=== PATIENT | male | born 1960 | race Caucasian/White ===

== ENCOUNTER 2017-01-04 08:53 | Outpatient (CLI) | payer BC, MEDICARE ==
[2017-01-04 10:02] LABS: Hematocrit 45.8 % (42.0-52.0); Mean Platelet Volume 8.5 fL (7.4-10.4); Red Blood Cell (RBC) Count 4.94 mill/uL (4.70-6.10); White Blood Cell (WBC) Count 5.9 thou/uL (4.8-10.8)
[2017-01-04 10:10] LABS: PTT 58.3 SEC (22.9-36.1); Prothrombin Time 38.1 SEC (12.0-14.7)
[2017-01-04 10:40] LABS: ALT (SGPT) 21 U/L (8-55); AST (SGOT) 23 U/L (5-34); Alkaline Phosphatase 86 U/L (40-150); Anion Gap 13 mmol/L (10-20); BUN (Urea Nitrogen) 15 mg/dL (8.4-25.7); Bilirubin, Total 0.6 mg/dL (0.2-1.2); Calc. Creatinine Clearance 0 mL/min (70-130); Calcium 9.3 mg/dL (7.8-10.44); Carbon Dioxide 27 mmol/L (22-29); Chloride 106 mmol/L (98-107); Estimated GFR-MDRD 71; Protein, Total 7.1 g/dL (6.0-8.3)
--- NOTE | 2017-01-04 15:28 | EKG ---
Test Reason : Blood Pressure : / mmHG Vent. Rate : 061 BPM Atrial Rate : 061 BPM P-R Int : 192 ms QRS Dur : 132 ms QT Int : 428 ms P-R-T Axes : 067 -40 046 degrees QTc Int : 430 ms Normal sinus rhythm Left axis deviation Non-specific intra-ventricular conduction block Inferior infarct (cited on or before 15-DEC-2010) Cannot rule out Anterior infarct , age undetermined Abnormal ECG When compared with ECG of 15-SEP-2016 11:13, (Unconfirmed) No significant change was found Confirmed by DR. Whitley ABDALLA (3) on 01/04/2017 3:28:35 PM Referred By: YULIA Confirmed By:DR. Whitley ABDALLA
== END 2017-01-04 08:54 | disposition home or self-care (01) ==
LOC: LABBT 08:53
PROVIDERS: ATTEND Internal Medicine Cardiovascular Disease
DX: Z01.818 Encounter for other preprocedural examination (principal); R94.39 Abnormal result of other cardiovascular function study
CPT/HCPCS: 80053; 85027; 85610; 85730; 93005; 93010

== ENCOUNTER 2017-01-08 05:54 | Observation (INO) | payer BC, MEDICARE ==
[2017-01-08 06:35] LABS: PTT 33.1 SEC (22.9-36.1); Prothrombin Time 16.5 SEC (12.0-14.7)
[2017-01-08] MEDS ORDERED: Heparin 10,000 UNITS/1 ML VIAL ONE ×3 (06:36→06:43)
[2017-01-08] MEDS ORDERED: Heparin 0 ML ONE (06:36)
[2017-01-08] MEDS ORDERED: Midazolam HCl 2 mg/2 ml Vial ONE (07:13)
[2017-01-08] MEDS ORDERED: Fentanyl 100 MCG/2 ML VIAL ONE (07:13)
[2017-01-08] MEDS ORDERED: Clopidogrel Bisulfate 300 MG TAB ONE (07:30)
[2017-01-08] MEDS ORDERED: Bivalirudin 250 MG VIAL ONE (07:30)
[2017-01-08] MEDS ORDERED: Atropine Sulfate 1 mg/10 ml Syringe ONE (07:34)
[2017-01-08] MEDS ORDERED: Morphine 10 MG/ML VIAL SLOW IVP PRN ×2 (08:20)
[2017-01-08] MEDS ORDERED: Sodium Chloride 0.9% 1,000 ML IV SCH (08:30)
[2017-01-08] MEDS ORDERED: Furosemide 20 MG TAB PO SCH ×2 (09:00→14:00)
[2017-01-08] MEDS ORDERED: Losartan 25 MG TAB PO SCH (09:00)
--- NOTE | 2017-01-08 09:42 | RAD ---
PORTABLE UPRIGHT FRONTAL CHEST RADIOGRAPH: Date: 01-08-17 Comparison: 02-25-15 History: Pre-operative patient, cardiac catheterization. FINDINGS: There is attenuation of the bronchopulmonary vasculature with increased linear interstitial density noted, stable. Midline sternotomy wires are present. Heart and mediastinal contours are unchanged. N o focal consolidation or alveolar edema. IMPRESSION: Stable appearance of the chest. POS: [facility]
[2017-01-08 14:56] VITALS: BMI 26.3
[2017-01-08] MEDS: Ezetimibe 10 MG TAB PO SCH (15:19)
[2017-01-08] MEDS: Clopidogrel Bisulfate 75 MG TAB PO SCH (15:19)
[2017-01-08] MEDS: Folic Acid 1 MG TAB PO SCH (15:19)
[2017-01-08] MEDS: Digoxin 0.125 MG TAB PO SCH (15:19)
[2017-01-08] MEDS ORDERED: Iopamidol 370 76% 100 ML VIAL ONE (15:31)
[2017-01-08] MEDS ORDERED: Iopamidol 370 76% 50 ML VIAL FS ONE (15:31)
[2017-01-08] MEDS: HYDROcodone/Acetaminophen 5/325 mg Tablet PO PRN ×2 (16:24→23:30)
[2017-01-08] MEDS ORDERED: Warfarin Sodium 5 MG TAB PO SCH (17:00)
[2017-01-08] MEDS ORDERED: FLU VACC QS2017-18 36 mo. & older 0.5 ML SYRINGE IM ONE (17:30)
[2017-01-08] MEDS: Mometasone/Formoterol 120 PUFF INHALER INH SCH (18:08)
[2017-01-08] MEDS ORDERED: Rosuvastatin 5 MG TAB PO SCH (21:00)
[2017-01-08 21:10] VITALS: TEMP 98.4
[2017-01-09 04:17] LABS: #Eosinphils 0.3 thou/uL (0.0-0.7); #Lymphocytes 1.5 thou/uL (1.20-3.40); #Monocytes 0.7 thou/uL (0.11-0.59); #Neutrophils 4.5 thou/uL (1.40-6.50); %Basophils 0.6 % (0.0-1.0); %Eosinophils 4.2 % (0.0-10.0); %Lymphocytes 21.7 % (21.0-51.0); %Monocytes 9.9 % (0.0-10.0); Hematocrit 40.9 % (42.0-52.0); Mean Platelet Volume 8.3 fL (7.4-10.4); Red Blood Cell (RBC) Count 4.39 mill/uL (4.70-6.10); White Blood Cell (WBC) Count 7.1 thou/uL (4.8-10.8)
[2017-01-09 04:43] LABS: ALT (SGPT) 16 U/L (8-55); AST (SGOT) 17 U/L (5-34); Alkaline Phosphatase 69 U/L (40-150); Anion Gap 8 mmol/L (10-20); BUN (Urea Nitrogen) 13 mg/dL (8.4-25.7); Bilirubin, Total 0.4 mg/dL (0.2-1.2); Calc. Creatinine Clearance 114 mL/min (70-130); Calcium 8.9 mg/dL (7.8-10.44); Carbon Dioxide 30 mmol/L (22-29); Chloride 107 mmol/L (98-107); Estimated GFR-MDRD 78; Globulin 2.6 g/dL (2.4-3.5); Protein, Total 5.9 g/dL (6.0-8.3)
[2017-01-09] MEDS: Mometasone/Formoterol 120 PUFF INHALER INH SCH (06:59)
[2017-01-09] MEDS ORDERED: Furosemide 40 MG TAB PO SCH (07:30)
[2017-01-09 07:57] VITALS: BP 136/89
--- NOTE | 2017-01-09 08:11 | DIS ---
DISCHARGE DIAGNOSES: 1. Bare metal stent placement in the ostial right coronary artery. 2. Dyspnea on exertion as his anginal equivalent after walking 40-50 feet. 3. Status post mechanical aortic valve replacement and ascending aortic aneurysm repair. Off-pump coronary artery bypass graft to the right coronary artery after ventricular tachycardia arrest post aortic valve replacement and was on intra-aortic balloon pump for 6 days postop. 4. Two vessel coronary artery disease (50% proximal left anterior descending and ostial right coronary artery). 5. Nonischemic cardiomyopathy with ejection fraction of 35-40%. 6. History of atrial flutter with ablation in 10/2013. 7. Hypercholesterolemia, under good control after adding 1/2 of a Zetia daily ( nausea with doses of Crestor greater than 5 mg). 8. Hypertension, well controlled. 9. Former smoker. 10. Atypical chest pain. DISCHARGE MEDICATIONS: Symbicort 2 puffs b.i.d., digoxin 125 mcg daily, Zetia 10 mg 1/2 tablet daily, folic acid 0.4 at bedtime, furosemide 40 q.a.m. and 20 q.p.m., Combivent 2 puffs q.i.d. p.r.n., Cozaar 25 mg daily, nitroglycerin p.r.n., rosuvastatin 5 mg daily, Stiolto Respimat inhaler 2 puffs daily, warfarin 5 mg daily except for one-half on and Saturday. Ecotrin 81 mg daily. He will take Plavix 75 mg daily for 1 month then discontinue this. DISCHARGE DISPOSITION: The patient will be seen in 3 months for followup. He is advised to have his INR checked in 1 week with INR to be between 2.5 and 3.5 (he states that he has tried to keep it between 3.5 and 4.5. It was recommended that he keep it between 2.5 and 3.5 with the addition of Plavix. HOSPITAL COURSE: Mr. Lozada had been noticing increasing dyspnea on exertion after walking 40-50 feet for 3-4 months. He underwent Lexiscan Cardiolite testing which revealed a fixed defect from the proximal to distal inferior wall and apical ischemia. His Coumadin was held. He underwent cardiac catheterization. This revealed normal left main, 50% proximal LAD, normal circumflex. The right coronary artery had an 80% ostial lesion with pressure dampening. No graft was seen to fill retrograde and was not searched for. He underwent stent placement with a Rebel 3.0 x 16 mm. The proximal portion of the stent was post-dilated with a 3.5, 4.0 and 4.5 mm noncompliant balloon. This was reduced from 80% to 0%. Aortic root injection was performed, which revealed no aortic insufficiency. There was good leaflet motion of the mechanical aortic valve. He was observed overnight. After he was up, he was walking long distances in the elder without any recurrence of exertional dyspnea like he had prior to stent placement. After recent addition of the Zetia 1/2 of a 10 mg daily, his cholesterol was 109, triglycerides 103, HDL 28, LDL 60. MTDD
[2017-01-09] MEDS: Digoxin 0.125 MG TAB PO SCH (08:33)
[2017-01-09] MEDS: Clopidogrel Bisulfate 75 MG TAB PO SCH (08:34)
[2017-01-09] MEDS: Ezetimibe 10 MG TAB PO SCH (08:34)
[2017-01-09] MEDS: Folic Acid 1 MG TAB PO SCH (08:34)
--- NOTE | 2017-01-10 07:30 | CCL ---
CARDIAC CATHETERIZATION REPORT: Date: 01/08/17 PROCEDURE: Selective coronary arteriography, stent placement in the ostial right coronary artery, and aortic root injection. INDICATION: Abnormal Cardiolite. DESCRIPTION OF PROCEDURE: The patient was brought to the cardiac laborer [facility] and the right groin was prepped and draped in the usual fashion. 1% lidocaine was infiltrated. Fentanyl 25 mg and Versed 1 mg were given intravenously for conscious sedation during the procedure of approximately 1 hour. A 6 [place] sheath was placed into the right femoral artery and heparin 3,000 units given. A 6 [place] Huang left-4 followed by a 6 [place] Huang right-4 was used for coronary arteriography. There was pressure dampening of the pressure waveform with engagement of the right coronary artery. Due to inaccuracies with the ACT machine, the decision was made to use Angiomax. Aspirin 324 mg and Plavix 600 mg were given PO. A 6 [place] right-4 guide catheter with side holes was inserted and a floppy Choice wire was advanced to the distal right coronary artery. Rebel 3.0 x 16 mm stent was positioned at the ostium and deployed. There continued to be narrowing in this area and sequentially this was post dilated with NC Emerge 3.5 x 15, 4.0 x 12, and 4.5 x 12 mm balloons. Final result was excellent. The guide catheter and wire were removed, and a 6 [place] angulated pigtail was inserted. Pressure was obtained and the aortic root injection was performed using 30 mL of contrast at 15 mL/sec in a YI 50 degree projection. The pigtail was removed, sheath was sutured in place, and patient was transferred to the PCU. RESULTS: CORONARY ARTERIOGRAPHY: 1. The left main was normal. 2. The LAD had a 50% proximal stenosis. 3. The circumflex was normal. 4. The right coronary artery had an 80% ostial stenosis. There was pressure dampening. No graft was seen to fill retrograde. INTERVENTION RESULTS: Initial lesion was 80%; final lesion was 0%. AORTIC ROOT INJECTION: There was no aortic insufficiency or perivalvular leak. The mechanical aortic valve had good leaflet motion. The vein graft to the RCA was not seen. IMPRESSION: 1. Two vessel coronary artery disease (LAD and RCA). 2. Successful stent placement (bare metal) in the ostial right coronary artery. 3. No aortic insufficiency. 4. Normal mechanical valve leaflet motion. 5. RCA graft occluded. MTDD
--- NOTE | 2017-01-11 15:52 | EKG ---
Test Reason : POST STENT Blood Pressure : / mmHG Vent. Rate : 058 BPM Atrial Rate : 058 BPM P-R Int : 206 ms QRS Dur : 140 ms QT Int : 444 ms P-R-T Axes : 043 -54 -04 degrees QTc Int : 435 ms Sinus bradycardia Left axis deviation Non-specific intra-ventricular conduction block Inferior infarct (cited on or before 15-DEC-2010) Cannot rule out Anterior infarct (cited on or before 05-JUN-2010) Abnormal ECG When compared with ECG of 04-JAN-2017 09:27, No significant change was found Confirmed by DR. Nino IBANEZ ([id number]) on 01/11/2017 3:52:31 PM Referred By: YULIA Confirmed By:DR. Nino IBANEZ
--- NOTE | 2017-01-11 15:56 | EKG ---
Test Reason : Blood Pressure : / mmHG Vent. Rate : 059 BPM Atrial Rate : 059 BPM P-R Int : 156 ms QRS Dur : 132 ms QT Int : 420 ms P-R-T Axes : -24 -48 037 degrees QTc Int : 415 ms Sinus bradycardia Left axis deviation Non-specific intra-ventricular conduction block Inferior infarct (cited on or before 15-DEC-2010) Cannot rule out Anterior infarct (cited on or before 05-JUN-2010) Abnormal ECG When compared with ECG of 08-JAN-2017 08:32, (Unconfirmed) No significant change was found Confirmed by DR. Nino IBANEZ ([id number]) on 01/11/2017 3:56:13 PM Referred By: YULIA Confirmed By:DR. Nino IBANEZ
== END 2017-01-09 08:48 | disposition home or self-care (01) ==
LOC: CCL 05:54 → 2SW 08:19
PROVIDERS: ADMIT Internal Medicine Cardiovascular Disease; ATTEND Internal Medicine Cardiovascular Disease
DX: I25.10 Atherosclerotic heart disease of native coronary artery without angina pectoris (principal); R06.00 Dyspnea, unspecified; I11.0 Hypertensive heart disease with heart failure; I50.9 Heart failure, unspecified; I42.8 Other cardiomyopathies; I48.92 Unspecified atrial flutter; J44.9 Chronic obstructive pulmonary disease, unspecified; Z79.899 Other long term (current) drug therapy; R07.89 Other chest pain; E78.00 Pure hypercholesterolemia, unspecified; Z95.2 Presence of prosthetic heart valve; Z95.5 Presence of coronary angioplasty implant and graft; Z87.891 Personal history of nicotine dependence
CPT/HCPCS: 36415; 71010; 80053; 80061; 85025; 85347; 85610; 85730; 90471; 90682; 90732; 92928; 93005; 93010; 93454; 93567; 96374; 99152; 99153; A4216; C1769; C1876; C1887; G0008; G0009; G0378; J0461; J0583; J1644; J2250; J2270; J3010; J7620; Q2036

== ENCOUNTER 2017-07-30 08:41 | Outpatient (CLI) | payer BC, MEDICARE ==
[2017-07-30 10:01] LABS: #Eosinphils 0.4 thou/uL (0.0-0.7); #Lymphocytes 1.3 thou/uL (1.20-3.40); #Monocytes 0.7 thou/uL (0.11-0.59); #Neutrophils 3.8 thou/uL (1.40-6.50); %Basophils 0.5 % (0.0-1.0); %Eosinophils 6.5 % (0.0-10.0); %Lymphocytes 20.3 % (21.0-51.0); %Monocytes 10.7 % (0.0-10.0); %Neutrophils 61.9 % (42.0-75.0); Mean Corpuscular HGB CONC 33.1 g/dL (32.0-36.0); Mean Corpuscular Hemoglobin 30.6 pg (27.0-31.0); Mean Corpuscular Volume 92.6 fl (80.0-94.0); Mean Platelet Volume 8.4 fL (7.4-10.4); Platelet Count 202 thou/uL (130-400); RBC Distribution Width 12.4 % (11.5-14.5); White Blood Cell (WBC) Count 6.2 thou/uL (4.8-10.8)
[2017-07-30 10:21] LABS: ALT (SGPT) 15 U/L (8-55); AST (SGOT) 19 U/L (5-34); Albumin 4.2 g/dL (3.5-5.0); Alkaline Phosphatase 88 U/L (40-150); Anion Gap 10 mmol/L (10-20); BUN (Urea Nitrogen) 15 mg/dL (8.4-25.7); Bilirubin, Total 0.8 mg/dL (0.2-1.2); Calc. Creatinine Clearance 0 mL/min (70-130); Calcium 9.1 mg/dL (7.8-10.44); Carbon Dioxide 28 mmol/L (22-29); Chloride 107 mmol/L (98-107); Estimated GFR-MDRD 62; Globulin 2.9 g/dL (2.4-3.5); Glucose 104 mg/dL (70-105); Potassium 3.8 mmol/L (3.5-5.1); Protein, Total 7.1 g/dL (6.0-8.3); Sodium 141 mmol/L (136-145)
--- NOTE | 2017-07-30 23:49 | EKG ---
Test Reason : Blood Pressure : / mmHG Vent. Rate : 065 BPM Atrial Rate : 065 BPM P-R Int : 184 ms QRS Dur : 136 ms QT Int : 434 ms P-R-T Axes : 053 -48 097 degrees QTc Int : 451 ms Sinus rhythm with occasional Premature ventricular complexes Left axis deviation Non-specific intra-ventricular conduction block Inferior infarct (cited on or before 15-DEC-2010) Cannot rule out Anterior infarct (cited on or before 05-JUN-2010) T wave abnormality, consider lateral ischemia Abnormal ECG When compared with ECG of 09-JAN-2017 06:30, Premature ventricular complexes are now Present Nonspecific T wave abnormality has replaced inverted T waves in Inferior leads Inverted T waves have replaced nonspecific T wave abnormality in Lateral leads Confirmed by DAISY RUFF, DR. Johnson ([id number]) on 07/30/2017 11:49:05 PM Referred By: RORY Confirmed By:DR. Elizabeth VILLA MD
== END 2017-07-30 08:42 | disposition home or self-care (01) ==
LOC: LABBT 08:41
PROVIDERS: ATTEND Surgery
DX: Z01.818 Encounter for other preprocedural examination (principal); R94.31 Abnormal electrocardiogram [ECG] [EKG]; K40.90 Unilateral inguinal hernia, without obstruction or gangrene, not specified as recurrent; I21.19 ST elevation (STEMI) myocardial infarction involving other coronary artery of inferior wall
CPT/HCPCS: 80053; 85025; 93005; 93010

== ENCOUNTER 2017-08-02 09:59 | Day surgery (SDC) | payer BC, MEDICARE ==
[2017-07-30 09:07] VITALS: BMI 28.1
[2017-08-02] MEDS ORDERED: CEFAZOLIN/Water 2 GM/20 ML SYRINGE ONE (11:21)
[2017-08-02 11:22] LABS: INR-International Normal Ratio 1.2; PTT 46.4 SEC (22.9-36.1); Prothrombin Time 14.9 SEC (12.0-14.7)
[2017-08-02] MEDS ORDERED: Bupivacaine/Epinephrine 0.25% 30 ML VIAL ONE (12:14)
[2017-08-02] MEDS ORDERED: Fentanyl 250 MCG/5 ML VIAL ONE (12:15)
--- NOTE | 2017-08-02 16:24 | OP ---
PREOPERATIVE DIAGNOSIS: Left inguinal hernia. SURGEON: Saturnino Lopez M.D. PROCEDURE PERFORMED: Left inguinal hernia repair with mesh. INDICATIONS: This is a 56-year-old male who was found to have a bulge in the left groin and was pain ful. FINDINGS: Left direct inguinal hernia. PROCEDURE IN DETAIL: After informed consent was obtained, the patient was taken to the operating aren m and given general mask anesthesia, placed in supine position. Left groin was prepped and draped in usual fashion. Local anesthesia infiltrated subcutaneously and deep. A transverse left inguinal in cision was performed. The subcu divided sharply. Fascia external oblique was incised in direction o f its fibers through the external ring. The spermatic cord was isolated with a Christa drain. Crema steric fibers were . There was no indirect component. He had a moderate sized direct ingui nal hernia. This was circumscribed and reduced. Reduction maintained utilizing a PHS hernia system. The posterior layer was placed in the preperitoneal space. It was sutured to the pubic tubercle me dially and tucked under the external oblique fascia laterally. Hemostasis was assured. The cord jacqui fatou anatomic and the fascia closed with a running 3-0 Vicryl suture. Now, he had a soft mass in the left scrotum consistent with a hydrocele. This did not communicate. I did not try to remove this du e to the fact that he is on anticoagulants and did not want to cause problems, anyways the external o blique fascia closed with a running 3-0 Vicryl. Elaine's closed with interrupted 3-0 Vicryl and skin closed with a running subcuticular 4-0 Rapide. Steri-Strips applied. Sterile bandage applied. The patient tolerated the procedure well and was transferred to recovery in good condition. Sponge and needle count verified correct x2.
== END 2017-08-02 15:19 | disposition home or self-care (01) ==
LOC: SDC 09:59
PROVIDERS: ATTEND Surgery
PROC: 0YU60JZ Supplement Left Inguinal Region with Synthetic Substitute, Open Approach (ICD-10-PCS; principal; 2017-08-02)
DX: K40.90 Unilateral inguinal hernia, without obstruction or gangrene, not specified as recurrent (principal); I10 Essential (primary) hypertension; E78.5 Hyperlipidemia, unspecified; I48.92 Unspecified atrial flutter; J44.9 Chronic obstructive pulmonary disease, unspecified; G89.29 Other chronic pain; M54.9 Dorsalgia, unspecified; Z87.891 Personal history of nicotine dependence; Z79.01 Long term (current) use of anticoagulants; Z79.899 Other long term (current) drug therapy; Z91.041 Radiographic dye allergy status; Z91.048 Other nonmedicinal substance allergy status; Z95.1 Presence of aortocoronary bypass graft
CPT/HCPCS: 85610; 85730; C1781; J3010

== ENCOUNTER 2018-03-29 11:37 | Observation (INO) | payer BC, MEDICARE ==
[2018-03-29 12:45] LABS: #Lymphocytes 1.5 thou/uL (1.20-3.40); #Monocytes 0.5 thou/uL (0.11-0.59); #Neutrophils 4.1 thou/uL (1.40-6.50); %Basophils 0.2 % (0.0-1.0); %Eosinophils 0.4 % (0.0-10.0); %Lymphocytes 23.8 % (21.0-51.0); %Monocytes 8.7 % (0.0-10.0); Hemoglobin 15.8 g/dL (14.0-18.0); Mean Corpuscular HGB CONC 32.9 g/dL (32.0-36.0); Mean Corpuscular Hemoglobin 29.8 pg (27.0-31.0); Mean Corpuscular Volume 90.7 fL (78.0-98.0); Mean Platelet Volume 9.2 fL (7.4-10.4); Platelet Count 191 thou/uL (130-400); White Blood Cell (WBC) Count 6.2 thou/uL (4.8-10.8)
[2018-03-29 12:55] LABS: PTT 61.1 SEC (22.9-36.1); Prothrombin Time 42.6 SEC (12.0-14.7)
[2018-03-29 12:56] LABS: D-Dimer Test 0.35 *mcg/mL (0.27-0.43)
[2018-03-29 12:58] LABS: INR-International Normal Ratio 4.5
[2018-03-29 13:07] LABS: ALT (SGPT) 39 U/L (8-55); AST (SGOT) 40 U/L (5-34); Albumin 4.3 g/dL (3.5-5.0); Alkaline Phosphatase 90 U/L (40-150); Anion Gap 14 mmol/L (10-20); BUN (Urea Nitrogen) 13 mg/dL (8.4-25.7); Calc. Creatinine Clearance 0 mL/min (70-130); Carbon Dioxide 24 mmol/L (22-29); Chloride 107 mmol/L (98-107); Estimated GFR-MDRD 70; Glucose 95 mg/dL (70-105); Potassium 4.1 mmol/L (3.5-5.1); Protein, Total 8.3 g/dL (6.0-8.3); Sodium 141 mmol/L (136-145)
--- NOTE | 2018-03-29 13:20 | RAD ---
PORTABLE CHEST: Date: 03/29/18 PROVIDED CLINICAL HISTORY: Dyspnea. FINDINGS: Comparison with 01/08/17. Cardiac and mediastinal silhouette is unchanged in appearance. Median sternotomy changes are seen. No focal consolidation, pleural fluid, or pneumothorax apparent. IMPRESSION: No evidence for an acute cardiopulmonary process. POS: [facility]
[2018-03-29 13:27] LABS: CKMB 1.7 ng/mL (0-6.6)
--- NOTE | 2018-03-29 13:37 | PDOC.FPRHP ---
- History of Present Illness Chief Complaint: SOB History of Present Illness: 57 yo M with hx of 2V CAD s/p stent x1 and known systolic CHF presents to ED for SOB and chest congestion. For past month has been experiencing SOB on exertion. Normally has no physical restrictions but has recently been limited to 20-30 feet distance without having to stop. Has emphysema that he is on home meds for, those have minimally helped. This past month he has seen his PCP, Dr. Ghosh and Dr. Perez who have both prescribed him antibiotic courses for suspected pneumonia, with no improvement of symptoms. He denies chest pain but endorses chest wheezing marv. with exertion. No increased coughing. Endorses subjective fevers and chills. Denies lower leg swelling or sputum production. Has never been on a fluid restricted diet. Of note, he had a mechanical valve replacement in 2007 and stent x1 1.5 years ago. He never followed up with Dr. Alvarez due to difficulty with scheduling. He takes all his meds as prescribed. ED Course: lasix 40 IV x1 - Allergies/Adverse Reactions Allergies Allergy/AdvReac Type Severity Reaction Status Date / Time adhesive Allergy Rash Verified 01/04/17 09:07 Iodinated Contrast- Oral and Allergy Verified 07/30/17 10:04 IV Dye - Home Medications Medication Instructions Recorded Confirmed Type Digoxin [Digox] 125 mcg PO DAILY 10/22/13 03/29/18 History Folic Acid 0.4 mg PO HS 10/22/13 03/29/18 History Ipratropium/Albuterol Sulfate 2 puff INH QID PRN 10/22/13 03/29/18 History [Combivent Respimat] Nitroglycerin [Nitrostat] 0.4 mg SL ASDIR PRN 10/22/13 03/29/18 History Budesonide-Formoterol [Symbicort 2 puff INH BID 01/04/17 03/29/18 History 160-4.5] Losartan [Cozaar] 25 mg PO DAILY 01/04/17 03/29/18 History Tiotropium Br/Olodaterol HCl 2 puff IH DAILY 01/04/17 03/29/18 History [Stiolto Respimat Inhal [place]] Ezetimibe 5 mg PO DAILY 01/08/17 03/29/18 History Furosemide 40 mg PO DAILY 01/08/17 03/29/18 History Rosuvastatin [Crestor] 10 mg PO HS 01/08/17 03/29/18 History Warfarin Sodium [Coumadin] 2.5 mg PO ASDIR 01/08/17 03/29/18 History Warfarin Sodium [Coumadin] 5 mg PO ASDIR 01/08/17 03/29/18 History Aspirin [Aspirin Chewable Tablet] 81 mg PO DAILY tab 01/09/17 03/29/18 Rx Furosemide [Lasix] 20 mg PO HS 01/09/17 03/29/18 History Docusate [Colace] 100 mg PO BID 08/02/17 03/29/18 History HYDROcodone Bit/APAP 7.5/325 1 - 2 tab PO Q4HR PRN 08/02/17 03/29/18 History [[place] 7.5/325] - History PMHx: COPD, CHF, 2V CAD s/p stent x1, HTN, HLD PSHx: L inguinal hernia repair, mechanical aortic valve replacement FHx: HTN, DM2 Social: former 30pack year hx, social drinker, denies drugs - Review of Systems General: denies: fever/chills, weight/appetite/sleep changes Eyes: denies: eye pain, vision changes ENT: denies: nasal congestion, rhinorrhea Respiratory: denies: cough, congestion, shortness of breath Cardiovascular: reports: edema, orthopnea. denies: chest pain, palpitation Gastrointestinal: reports: nausea, constipation, abdominal pain, GI bleeding. denies: vomiting, diarrhea Genitourinary: denies: incontinence, dysuria Skin: denies: rashes, lesions Musculoskeletal: denies: pain, tenderness, stiffness, swelling, arthritis/ arthralgias Neurological: denies: numbness, syncope Psychological: denies: anxiety, depression - Vital signs BP: [140/95] HR: [85] RR: [24] Tmax: [98.1] Pox: [94]% on [RA] Wt: [28kg] - Physical Exam Constitutional: awake, alert and oriented, well developed -Constitutional: mild distress from LLQ abd pain HEENT: normocephalic and atraumatic, PERRLA, EOMI, no scleral icterus Neck: supple, FROM, no JVD Heart: no edema Lungs: no respiratory distress, no retractions -Lungs: fine bibasilar crackles Abdomen: soft, bowel sounds present, no masses/distention -Abdomen: tender to deep palpation in LLQ Musculoskeletal: ROM grossly normal Neurological: no focal deficit, CN II-XII intact, normal sensation Skin: no rash/lesions -Skin: dec skin turgor Heme/Lymphatic: no unusual bruising or bleeding, no purpura Psychiatric: normal mood and affect, good judgment and insight, intact recent and remote memory FMR H&P: Results - Labs Result Diagrams: 03/29/18 11:52 03/29/18 11:52 Lab results: WBC 6.2 thou/uL (4.8-10.8) 03/29/18 11:52 Hgb 15.8 g/dL (14.0-18.0) 03/29/18 11:52 Hct 48.1 % (42.0-52.0) 03/29/18 11:52 MCV 90.7 fL (78.0-98.0) 03/29/18 11:52 Plt Count 191 thou/uL (130-400) 03/29/18 11:52 Neutrophils % 67.0 % (42.0-75.0) 03/29/18 11:52 Sodium 141 mmol/L (136-145) 03/29/18 11:52 Potassium 4.1 mmol/L (3.5-5.1) 03/29/18 11:52 Chloride 107 mmol/L (98-107) 03/29/18 11:52 Carbon Dioxide 24 mmol/L (22-29) 03/29/18 11:52 BUN 13 mg/dL (8.4-25.7) 03/29/18 11:52 Creatinine 1.08 mg/dL (0.7-1.3) 03/29/18 11:52 Glucose 95 mg/dL (70-105) 03/29/18 11:52 Lactic Acid 1.5 mmol/L (0.5-2.2) 03/29/18 11:52 Calcium 10.0 mg/dL (7.8-10.44) 03/29/18 11:52 Total Bilirubin 1.0 mg/dL (0.2-1.2) 03/29/18 11:52 AST 40 U/L (5-34) H 03/29/18 11:52 ALT 39 U/L (8-55) 03/29/18 11:52 Alkaline Phosphatase 90 U/L (40-150) 03/29/18 11:52 CK-MB (CK-2) 1.7 ng/mL (0-6.6) 03/29/18 11:52 B-Natriuretic Peptide 404.9 pg/mL (0-100) H 03/29/18 11:52 Serum Total Protein 8.3 g/dL (6.0-8.3) 03/29/18 11:52 Albumin 4.3 g/dL (3.5-5.0) 03/29/18 11:52 - EKG Interpretation EKG: NSR, L axis deviation - Radiology Interpretation Chest x-ray Status: report reviewed by wy FMR H&P: A/P - Problem List (1) Acute exacerbation of CHF (congestive heart failure) Current Visit: Yes Status: Acute Code(s): I50.9 - HEART FAILURE, UNSPECIFIED (2) (HFpEF) heart failure with preserved ejection fraction Current Visit: Yes Status: Acute Code(s): I50.30 - UNSPECIFIED DIASTOLIC ( CONGESTIVE) HEART FAILURE (3) Supratherapeutic INR Current Visit: Yes Status: Acute Code(s): R79.1 - ABNORMAL COAGULATION PROFILE (4) Hematochezia Current Visit: Yes Status: Acute Code(s): K92.1 - MELENA (5) Aortic stenosis Current Visit: Yes Status: Acute Code(s): I35.0 - NONRHEUMATIC AORTIC (VALVE ) STENOSIS (6) Heart valve replaced Current Visit: Yes Status: Acute Code(s): Z95.2 - PRESENCE OF PROSTHETIC HEART VALVE (7) Presence of stent in coronary artery in patient with coronary artery disease Current Visit: Yes Status: Acute Code(s): I25.10 - ATHSCL HEART DISEASE OF [place] CORONARY ARTERY W/O ANG PCTRS; Z95.5 - PRESENCE OF CORONARY ANGIOPLASTY IMPLANT AND GRAFT (8) S/P CABG x 1 Current Visit: Yes Status: Acute Code(s): Z95.1 - PRESENCE OF AORTOCORONARY BYPASS GRAFT (9) Emphysema lung Current Visit: Yes Status: Acute Code(s): J43.9 - EMPHYSEMA, UNSPECIFIED (10) Hypertension Current Visit: Yes Status: Acute Code(s): I10 - ESSENTIAL (PRIMARY) HYPERTENSION - Plan acute on chronic CHFrEF exacerbation -BNP 400s, above baseline -clinically mildly fluid overloaded -s/p IV lasix 40mg in ED, continue IV lasix 40mg BID -Strict I/O, daily weights, fluid restricted diet -indet. troponins, likely demand ischemia. Will trend -Echo in 12/2016 showed EF 35-40% -On ARB, will inc. to high intensity statin -Hold ASA due to active bleeding -Repeat echo since been >1 year since last one Reported hematochezia -H/H stable, trend -FOBT -unsure if has been scoped, will check clinic records -monitor for signs of active clinical bleeding -CT abdomen to check for diverticulitis,diverticulosis -tramadol pRN for pain Supratherapeutic INR -4.5, hold home wafarin -daily coag panel COPD -resume home meds -duonebs PRN HTN -resume home meds HLD -resume home meds CAD s/p 1V CABG and stent x1 -hold ASA Aortic stenosis s/p mechanical valve replacement -MD aware dvt ppx: none, home warfarin held gi ppx: protonix FMR H&P: Upper Level - Pertinent history 57 yo WM PMH CAD with 2 vessel disease s/p 1 vessel CABG in 2007 and bare metal stent placement in 2017, known HFrEF (35-40%), aortic valve replacement, COPD, and non-ischemic cardiomyopathy. Presents with 1 month history of chest congestion, PND, DUNLAP, and orthopnea. States he has been on 2 rounds of abx to treat COPD exacerbation. Follows up with Dr. Perez for COPD. Has not seen Dr. Alvarez since stent placement. Denies chest pain. Also reports left lower abdominal pain and states he had his first BM for the first time in 3 days yesterday. Also reports BRPR recently in the toilet. ER: labs, EKG, CXR. No medications given by ER provider. - Pertinent findings Vitals: WNL Gen: NAD, speak in full sentences CV: RRR, no murmur Pulm: Faint crackles bilateral lung bases Extremities: Trace edema Labs: BNP 400, Trop 0.03, otherwise WNL EKG: NSR rate 71 normal interals, nonspecific intraventraicular block. CXR: Mild pulmonary vascular congestion - Plan Date/Time: 03/29/18 [id number] I, Fernando Sue MD, have evaluated this patient and agree with findings/plan as outlined by manager internal resident. Pertinent changes/additions are listed here. 1. Acute HFrEF (present on admission) exacerbation: IV lasix 40 mg BID, ASA 325 mg, repeat TTE. Currently on ARB and low intensity Statin. Will discuss starting beta-neha which may be difficult depending on the severity of his COPD. Repeat TTE. Increase statin to high intensity. FLP in morning. Consider cardiology consultation depending on result of TTE. Trend trops. 2. CAD s/p CABG and PCI with bare metal stent placement: hold warfarin since supratherapeutic. Trend INR. discuss coumadin prudent diet. Optimize medication management. 3. Hematochezia: H&H stable. No signs of acute blood loss. CT abdomen/pelvis w/ o contrast (allergy). DDx. include hemorrhoid vs diverticulosis. Likely exacerbated due to surpatherapeutic INR. Trend H&H 4. Supratherapeutic INR: hold warfarin. Vitamin K if signs of acute bleeding 5. HTN: Home meds 6. COPD: home meds Diet: HH, coumadin prudent PPx: warfarin CODE: FULL Dispo: Obs, tele, <[address] White. Addendum - Attending - Attending Attestation Date/Time: 03/29/18 747 I personally evaluated the patient and discussed the management with Dr. Trejo I agree with the History, Examination, Assessment and Plan documented above with any addition or exceptions noted below.
[2018-03-29] MEDS ORDERED: Senokot S 8.6-50 MG TAB PO PRN (15:12)
[2018-03-29] MEDS ORDERED: Ondansetron ODT 4 MG TAB PO PRN (15:12)
[2018-03-29 15:17] VITALS: BMI 28.3
--- NOTE | 2018-03-29 15:25 | CT ---
CT ABDOMEN AND PELVIS WITHOUT CONTRAST: Date: 03/29/18 PROVIDED CLINICAL HISTORY: Pain. FINDINGS: The visualized lung bases are free of significant opacity. The solid abdominal organs are suboptimally evaluated in the absence of IV contrast, but demonstrate no significant abnormality. There is no bowel dilatation, inflammatory fat stranding, free fluid, or free air apparent. Sigmoid c olonic diverticulosis changes without CT evidence for diverticulitis. Vascular calcification is noted involving the abdominal aorta and its branches. The osseous structures demonstrate no concerning osteoblastic or osteolytic lesions. Degenerative audi nges are seen. IMPRESSION: No evidence for an acute process. POS: [facility]
[2018-03-29] MEDS ORDERED: Furosemide 40 MG/4 ML VIAL SLOW IVP SCH (15:30)
[2018-03-29] MEDS ORDERED: traMADol HCl 50 MG TAB PO SCH (15:30)
[2018-03-29] MEDS ORDERED: Aspirin 325 mg Enteric Coated Tablet PO SCH (15:30)
[2018-03-29] MEDS ORDERED: Furosemide 40 MG/4 ML VIAL ONE (15:56)
[2018-03-29 16:20] LABS: Cardiac Risk 4.4 (Less than 4.5)
[2018-03-29 16:21] LABS: Digoxin 0.25 ng/mL (0.8-2.0)
[2018-03-29 16:24] LABS: Troponin I 0.036 ng/mL (< 0.028)
--- NOTE | 2018-03-29 17:25 | PDOC.EVN ---
Event Note - Event Note Event Note: Brief admit note 57 yo male with recent exacerbation COPD patient took two round antibiotic s/p AVR & CABG 8 years ago 2013 atrial flutter with ablation and prior coronary ( bare metal Stent) placement . Patient with progressive DUNLAP and orthopnea last 48 hours as well progressive fatigue, nausea and LLQ pain with episode of rectal bleeding. Patient followed by Cardiology Kamron Alvarez and Pulmonology Dr Perez. PMHX 59 plus pack years of smoking with advanced COPD on albuterol, symbicort and stiolto respimat ,followed by Urology for hydrocoele and approximately 6 months ago had LIH repair by Dr Lopez. CT abdomen with Diverticulosis noted today. Lab BNP 404 Patient supratherapeutic on coumadin INR 4.5 Other current RX; ,lasix ,losaartan, crestor and zetia. exam: afebrile P 80 RR 16 Neck mild JVD Lung rales and exp wheezes appreciated heart NSR CRISTY c/w with mechanical valve abdomen soft no rebound rectal see [employer] It Project exam ext non edematous no cyanosis neuro non focal See [employer] It [employer] note for further details will diuresis and place on fluid restricted diet rec . R/o ischemia trend troponin. HF need further defining obtain TTE .hold vit K antagonist with goal 2.5-3.5 H/H stable.
[2018-03-29 19:06] LABS: Troponin I 0.028 ng/mL (< 0.028)
[2018-03-29] MEDS ORDERED: Atorvastatin Calcium 40 MG TAB PO SCH (21:00)
[2018-03-29] MEDS ORDERED: Lidocaine 2% Viscous Solution 10 ML, Aluminum & Magnesium Hydroxide 30 ML SSW SCH (21:15)
[2018-03-30] MEDS: traMADol HCl 50 MG TAB PO PRN ×2 (00:05→07:14)
[2018-03-30 04:54] LABS: PTT 64.2 SEC (22.9-36.1); Prothrombin Time 41.2 SEC (12.0-14.7)
[2018-03-30 05:19] LABS: ALT (SGPT) 28 U/L (8-55); AST (SGOT) 27 U/L (5-34); Albumin 3.6 g/dL (3.5-5.0); Alkaline Phosphatase 70 U/L (40-150); Anion Gap 13 mmol/L (10-20); BUN (Urea Nitrogen) 20 mg/dL (8.4-25.7); Bilirubin, Total 0.8 mg/dL (0.2-1.2); Calc. Creatinine Clearance 106 mL/min (70-130); Calcium 9.2 mg/dL (7.8-10.44); Carbon Dioxide 22 mmol/L (22-29); Chloride 107 mmol/L (98-107); Estimated GFR-MDRD 69; Globulin 3.2 g/dL (2.4-3.5); Glucose 96 mg/dL (70-105); Potassium 3.9 mmol/L (3.5-5.1); Protein, Total 6.8 g/dL (6.0-8.3); Sodium 138 mmol/L (136-145)
[2018-03-30 05:37] LABS: INR-International Normal Ratio 4.3
--- NOTE | 2018-03-30 05:46 | PDOC.FM ---
Addendum entered and electronically signed by Sharon Trejo MD 03/30/18 09:27 : -due to chf started pt on metorpolol succinate. aware he has COPD, however plan to monitor him and see how he does on this BB dose due to coming in for admission for acute CHF exacerbation Original Note: - Subjective Subjective: NAEO, breathing improved able to walk to bathroom. Reports headache this AM for past 10 hours. Pulsing, behind eyes, worse with light. No emesis. Resolved abd pain and no further GI bleeding - Objective MAR Reviewed: Yes Vital Signs & Weight: Vital Signs (12 hours) Temp Pulse Resp BP Pulse Ox 03/30/18 04:11 98.3 F 64 18 121/89 94 L 03/29/18 23:13 98.9 F 76 20 117/82 93 L 03/29/18 18:27 99.0 F 90 20 122/87 93 L Weight Weight 99.609 kg I&O: 03/28/18 03/29/18 03/30/18 06:59 06:59 06:59 Intake Total 640 Output Total 1200 Balance -560 Result Diagrams: 03/30/18 04:11 03/30/18 04:11 Phys Exam - Physical Examination mild distress due to headache HEENT: PERRLA dry mucosal membreanes Respiratory: no wheezing, clear to auscultation bilateral Cardiovascular: RRR mechanical click at aortic valve Gastrointestinal: soft, non-tender, positive bowel sounds Musculoskeletal: no edema, pulses present Neurological: non-focal, moves all 4 limbs Psychiatric: normal affect, A&O x 3 Dx/Plan (1) Acute exacerbation of CHF (congestive heart failure) Code(s): I50.9 - HEART FAILURE, UNSPECIFIED Status: Acute (2) (HFpEF) heart failure with preserved ejection fraction Code(s): I50.30 - UNSPECIFIED DIASTOLIC (CONGESTIVE) HEART FAILURE Status: Chronic (3) Supratherapeutic INR Code(s): R79.1 - ABNORMAL COAGULATION PROFILE Status: Acute (4) Hematochezia Code(s): K92.1 - MELENA Status: Acute (5) Aortic stenosis Code(s): I35.0 - NONRHEUMATIC AORTIC (VALVE) STENOSIS Status: Chronic (6) Heart valve replaced Code(s): Z95.2 - PRESENCE OF PROSTHETIC HEART VALVE Status: Chronic (7) Presence of stent in coronary artery in patient with coronary artery disease Code(s): I25.10 - ATHSCL HEART DISEASE OF [place] CORONARY ARTERY W/O ANG PCTRS; Z95.5 - PRESENCE OF CORONARY ANGIOPLASTY IMPLANT AND GRAFT Status: Chronic (8) S/P CABG x 1 Code(s): Z95.1 - PRESENCE OF AORTOCORONARY BYPASS GRAFT Status: Chronic (9) Emphysema lung Code(s): J43.9 - EMPHYSEMA, UNSPECIFIED Status: Chronic (10) Hypertension Code(s): I10 - ESSENTIAL (PRIMARY) HYPERTENSION Status: Chronic - Plan Plan: 57 yo M with CAD s/p stent x1 and 1V CABG, systolic HF with acute CHF exacerbation acute on chronic CHFrEF exacerbation -BNP 400s, above baseline -UO: 1.5L/24 hr -troponins trended down, likely from demand ischemia -Echo in 12/2016 showed EF 35-40%, pending repeat echo -continue IV lasix 40mg BID, on ARB, high intensity statin -hold ASA due to active bleeding -Strict I/O, daily weights, fluid restricted diet Elevated troponins -trended down, likely demand ischemia from acute CHF exacerbtaion Reported hematochezia with LLQ pain -Diverticulosis vs. hemorrhoids, happens before when INR is high -Will perform rectal exam -H/Hstable -L inguinal hernia repair 6 months ago, not likely bowel obstruction -FOBT -monitor for signs of active clinical bleeding -tramadol pRN for pain -needs colonoscopy outpt Supratherapeutic INR -4.5, hold home wafarin -daily coag panel with goal of 2-3 Subtherapeutic digoxin level -will inc digoxin from .125 to 0.25mg with goal 0.8-2.0 -will monitor with drawn trough level -continue monitoring COPD -resume home meds -duonebs PRN HTN -resume home meds HLD -resume home meds CAD s/p 1V CABG and stent x1 -hold ASA Aortic stenosis s/p mechanical valve replacement -MD aware dvt ppx: none, home warfarin held gi ppx: protonix dispo: pending continued workup for cause of CHF exacerbation-TTE. Addendum - Attending - Attending Attestation Date/Time: 03/30/18 2254 I personally evaluated the patient and discussed the management with Dr. Trejo I agree with the History, Examination, Assessment and Plan documented above with any addition or exceptions noted below.patient with good repsonse to loop diuretic, trend INR still supratherapeutic VITK antagonist on hold rec anticoagulation clinic to follow. Added selective BB today HFref feel COPD not contraindicated at this time. Need to review home inhalers at time of dismissal symbicort and stiolto respimat would be dual LABA coverage.
[2018-03-30] MEDS ORDERED: Nitroglycerin 0.4 MG TAB (25 Tab Bottle) SL PRN (05:47)
[2018-03-30] MEDS ORDERED: Non-Formulary Item 1 EACH (Ipratropium/Albuterol Sulfate [Combivent Respimat] 2 PUFF) INH PRN (05:47)
[2018-03-30] MEDS ORDERED: Furosemide 40 MG/4 ML VIAL SLOW IVP SCH (06:00)
[2018-03-30] MEDS ORDERED: Mometasone/Formoterol 120 PUFF INHALER INH SCH (06:30)
[2018-03-30 07:23] LABS: Hemoglobin 14.2 g/dL (14.0-18.0)
[2018-03-30] MEDS ORDERED: Aspirin/APAP/Caffeine Tab (Excedrin Migraine) PO PRN (07:44)
[2018-03-30] MEDS ORDERED: Ezetimibe 10 MG TAB PO SCH ×2 (09:00→21:00)
[2018-03-30] MEDS ORDERED: Docusate 100 MG CAP PO SCH (09:00)
[2018-03-30] MEDS ORDERED: Digoxin 0.25 MG TAB PO SCH (09:00)
[2018-03-30] MEDS ORDERED: Losartan 25 MG TAB PO SCH (09:00)
[2018-03-30] MEDS ORDERED: Pantoprazole 40 MG GRANULES PACKET PO SCH (09:00)
[2018-03-30] MEDS ORDERED: Digoxin 0.125 MG TAB PO SCH ×3 (09:00)
[2018-03-30 11:57] VITALS: BP 135/89; TEMP 98.1
[2018-03-30] MEDS ORDERED: Folic Acid 1 MG TAB PO SCH (21:00)
--- NOTE | 2018-04-01 09:54 | DIS ---
DATE OF ADMISSION: 03/29/2018 DATE OF DISCHARGE: 03/30/2018 RESIDENT: Sharon Trejo MD ADMITTING ATTENDING: Arden White MD DISCHARGE ATTENDING: Arden White MD CONSULTS: None. PROCEDURES: None. PRIMARY DIAGNOSES: 1. Acute on chronic systolic heart failure exacerbation. 2. Supratherapeutic INR, history of aortic mechanical valve replacement. 3. Reported hematochezia in the setting of supratherapeutic INR. SECONDARY DIAGNOSES: 2. Chronic congestive heart failure with reduced ejection fraction. 3. Subtherapeutic digoxin level. 4. Chronic obstructive pulmonary disease. 5. Hypertension. 6. Hyperlipidemia. 7. Coronary artery disease status post one-vessel coronary artery bypass graft and stent x1. 8. Aortic stenosis status post mechanical valve replacement. DISCHARGE MEDICATIONS: 1. Combivent 2 puffs inhaled q.i.d. p.r.n. for short of breath, wheezing. 2. Folic acid 0.4 mg p.o. at bedtime. 3. Digoxin 125 mcg p.o. daily. 4. Nitrostat 0.4 mg sublingual as directed p.r.n. for chest pain. 5. Symbicort 2 puffs inhaled b.i.d. 6. Stiolto Respimat 2 puffs inhaled daily. 7. Cozaar 25 mg p.o. daily. 8. Lasix 40 mg p.o. daily. 9. Ezetimibe 5 mg p.o. daily. 10. Colace 100 mg p.o. b.i.d. 11. Excedrin Migraine one tab p.o. q.6 hours p.r.n. for headache. 12. Lipitor 40 mg p.o. at bedtime. 13. Metoprolol succinate 25 mg p.o. daily. DISCONTINUED MEDICATIONS: Holding warfarin 2.5 mg, 5 mg due to supratherapeutic INR. HISTORY OF PRESENT ILLNESS/HOSPITAL COURSE: A 57-year-old male with known systolic heart failure with reduced ejection fraction, presented to the ED feeling short of breath. Over the past month, he experienced two sinus infections and increased short of breath. He endorsed orthopnea, but denied lower leg swelling. Typically, has no physical limitations; however, he was unable to walk further than 50 feet without feeling short of breath. He also has a history of COPD in which his inhalers have not improved his breathing. In the ED, labs were pertinent for a BNP in the 400s, elevated above baseline. He was admitted for acute on chronic heart failure exacerbation, etiology thought to be nonischemic in nature due to no acute changes in EKG and down trending troponins. Of note, the patient had an echo in 2017 that showed an ejection fraction of 35%-40%. He has not been able to follow up with Dr. Alvarez, outpatient. The patient does have a history pertinent for aortic stenosis with mechanical valve replacement over one year ago. Patient improved back to baseline with IV lasix diuresis. Upon discharge he was ready to go home. Currently, transthoracic echo is pending to assess changes in ejection fraction or for valvular involvement. The patient was appropriately increased to high intensity statin. In addition, he was started on a low-dose beta neha. Due to his severe COPD, emphysema, we wanted to monitor him in hospital to make sure he did not have an adverse reaction and was able to tolerate his 1st dose of the beta neha. Thus, he was discharged and instructed to take this. In addition, the patient reported an episode of hematochezia. H and H remained stable. FOBT was sent. CT abdomen showed diverticulosis with no signs of acute inflammation. Significantly, he had an INR of 4.5, supratherapeutic. He is typically on warfarin for aortic mechanical valve replacement. He was scheduled to have his INR drawn today. He endorsed that he has experienced hematochezia before when his INR was high. We held his warfarin and continue to trend his coag panel with mild decrease in warfarin. We highly recommended that he start going to [facility] for better followup in a couple of days. It is emphasized that the patient's followup with Dr. Alvarez is very important as his digoxin level was subtherapeutic. We did not make any adjustments to it due to the narrow therapeutic range and the concern for noncompliance in this patient. DISPOSITION: Stable. DISCHARGE INSTRUCTIONS: 1. Location, home. 2. Diet heart healthy, fluid restriction less than 1500 a day, salt restriction less than 2 g a day. 3. Activity, as tolerated. FOLLOWUP: 1. Please follow up with [facility] to have INR titrated. Resume warfarin as instructed by physician. 2. Please follow up with Dr. Alvarez in regard to aortic mechanical valve replacement management in addition to subtherapeutic digoxin levels. 3. Please follow up with PCP, Dr. Ghosh within 7-10 days. Job ID: [id number] MTDD
== END 2018-03-30 14:35 | disposition home or self-care (01) ==
LOC: ERS 11:37 → 2SW 15:12
PROVIDERS: ADMIT Family Medicine; ATTEND Family Medicine
DX: I11.0 Hypertensive heart disease with heart failure (principal); I50.23 Acute on chronic systolic (congestive) heart failure; R79.1 Abnormal coagulation profile; K92.1 Melena; J44.9 Chronic obstructive pulmonary disease, unspecified; E78.5 Hyperlipidemia, unspecified; I25.10 Atherosclerotic heart disease of native coronary artery without angina pectoris; I42.8 Other cardiomyopathies; I35.0 Nonrheumatic aortic (valve) stenosis; Z87.891 Personal history of nicotine dependence; Z79.01 Long term (current) use of anticoagulants; Z79.51 Long term (current) use of inhaled steroids; Z79.899 Other long term (current) drug therapy; Z91.041 Radiographic dye allergy status; Z91.048 Other nonmedicinal substance allergy status; Z95.1 Presence of aortocoronary bypass graft; Z95.2 Presence of prosthetic heart valve; Z95.5 Presence of coronary angioplasty implant and graft
CPT/HCPCS: 36415; 71045; 74176; 80053; 80061; 80162; 82274; 82553; 83605; 83735; 83880; 84443; 84484; 85014; 85018; 85025; 85379; 85610; 85730; 93005; 93306; 94760; 96374; G0378; J1940; Q0162

== ENCOUNTER 2018-05-06 07:20 | Outpatient (CLI) | payer BC, MEDICARE ==
[2018-05-06 12:22] LABS: ALT (SGPT) 16 U/L (8-55); AST (SGOT) 20 U/L (5-34); Albumin 4.1 g/dL (3.5-5.0); Alkaline Phosphatase 95 U/L (40-150); Anion Gap 10 mmol/L (10-20); BUN (Urea Nitrogen) 12 mg/dL (8.4-25.7); Bilirubin, Total 0.7 mg/dL (0.2-1.2); Calc. Creatinine Clearance 0 mL/min (70-130); Calcium 9.9 mg/dL (7.8-10.44); Carbon Dioxide 27 mmol/L (22-29); Cardiac Risk 3.7 (Less than 4.5); Chloride 107 mmol/L (98-107); Cholesterol 119 mg/dl (< 200 Desired); Estimated GFR-MDRD 69; Globulin 3.1 g/dL (2.4-3.5); Glucose 92 mg/dL (70-105); HDL Cholesterol 32 mg/dL (>60 Neg Risk); LDL Cholesterol, Calculated 67 mg/dL; Potassium 4.2 mmol/L (3.5-5.1); Protein, Total 7.2 g/dL (6.0-8.3); Sodium 140 mmol/L (136-145); Triglycerides 100 mg/dL (Less than 150)
--- NOTE | 2018-05-06 12:47 | RAD ---
SINGLE VIEW CHEST: HISTORY: Preoperative radiograph. COMPARISON: 09/18/2010 FINDINGS: A single view of the chest shows a normal sized cardiomediastinal silhouette. The patient is status post aortic valve repair. There is no evidence of consolidation, mass, or pleural effusion. IMPRESSION: No evidence of acute cardiopulmonary disease. POS: [facility]
[2018-05-06 13:04] LABS: #Eosinphils 0.3 thou/uL (0.0-0.7); #Lymphocytes 1.2 thou/uL (1.20-3.40); #Monocytes 0.6 thou/uL (0.11-0.59); #Neutrophils 4.3 thou/uL (1.40-6.50); %Basophils 0.3 % (0.0-1.0); %Lymphocytes 18.5 % (21.0-51.0); %Monocytes 9.6 % (0.0-10.0); %Neutrophils 66.6 % (42.0-75.0); Hemoglobin 14.6 g/dL (14.0-18.0); Mean Corpuscular HGB CONC 30.4 g/dL (32.0-36.0); Mean Corpuscular Hemoglobin 28.1 pg (27.0-31.0); Mean Corpuscular Volume 92.5 fL (78.0-98.0); Mean Platelet Volume 8.9 fL (7.4-10.4); Platelet Count 225 thou/uL (130-400); RBC Distribution Width 13.4 % (11.5-14.5); Red Blood Cell (RBC) Count 5.19 mill/uL (4.70-6.10); White Blood Cell (WBC) Count 6.4 thou/uL (4.8-10.8)
== END 2018-05-06 07:21 | disposition home or self-care (01) ==
LOC: LABBT 07:20
PROVIDERS: ATTEND Internal Medicine Cardiovascular Disease
DX: Z01.818 Encounter for other preprocedural examination (principal)
CPT/HCPCS: 71045; 80053; 80061; 85025; 93005; 93010

== ENCOUNTER 2018-05-08 06:23 | Day surgery (SDC) | payer BC, MEDICARE ==
[2018-05-06 10:58] VITALS: BMI 28.1
[2018-05-08] MEDS ORDERED: Heparin 10,000 UNITS/1 ML VIAL ONE (06:36)
[2018-05-08 07:10] LABS: INR-International Normal Ratio 1.2; PTT 29.1 SEC (22.9-36.1); Prothrombin Time 15.3 SEC (12.0-14.7)
[2018-05-08 07:24] LABS: Cardiac Risk 3.6 (Less than 4.5)
[2018-05-08] MEDS ORDERED: Fentanyl 100 MCG/2 ML VIAL ONE (07:24)
[2018-05-08] MEDS ORDERED: Midazolam HCl 2 mg/2 ml Vial ONE (07:24)
[2018-05-08] MEDS ORDERED: Clopidogrel Bisulfate 300 MG TAB ONE (07:54)
[2018-05-08] MEDS ORDERED: Bivalirudin 250 MG VIAL ONE (07:54)
[2018-05-08] MEDS ORDERED: Aspirin Chewable 81 MG TAB ONE (08:06)
[2018-05-08] MEDS ORDERED: Iopamidol 370 76% 100 ML VIAL ONE (10:04)
[2018-05-08] MEDS ORDERED: Iopamidol 370 76% 50 ML VIAL FS ONE (10:04)
--- NOTE | 2018-05-10 09:44 | CCL ---
CARDIAC CATHETERIZATION REPORT: Date: 05/08/18 PROCEDURE: Left heart catheterization, selective arteriography, aortic valve fluoroscopy, drug-eluting stent placement in the ostial right coronary artery in-stent restenosis, and flow wire of mid RCA lesion. INDICATION: Abnormal Cardiolite. Increased shortness of breath. DESCRIPTION OF PROCEDURE: The patient was brought to the cardiac labor commissioner and the right groin was prepped and draped in the usual fashion. 1% lidocaine was infiltrated. A 6 Burmese sheath was placed into the right femoral artery and heparin 3,000 units given. A 6 [place] Huang left-4 was used for left coronary arteriography. A 6 [place] right-4 guide catheter was inserted for right coronary arteriography. There was pressure dampening from the ostial in-stent restenosis. Pressure dampened down to systolic of 20-30 mm. The guide catheter was removed and a 6 [place] right-4 guide catheter was side holes was inserted. Floppy Choice was advanced into the distal right coronary artery. Synergy 4.0 x 16 mm stent was positioned overlapping the previous 16 mm stent and deployed. The proximal portion of this was postdilated with a 5 mm balloon. The balloon delivery system was removed. The floppy Choice wire remained in place. Flow wire was then inserted and advanced past the mid RCA lesion. Flow wire measurement was then obtained. Both wires were removed. Final contrast injections were performed. The guide catheter was removed and the sheath was sutured in place. RESULTS: CORONARY ARTERIOGRAPHY: 1. The left main was normal. 2. The LAD had a 50% proximal stenosis. 3. The circumflex was normal. 4. The right coronary artery had a 60% ostial in-stent restenosis. There was pressure dampening with engaging of the right coronary artery. There was a 50% mid RCA lesion. INTERVENTION RESULTS: The initial lesion was 60%; final lesion was 0%. Fractional flow reserve of the mid right coronary artery was 0.90. IMPRESSION: 1. Two vessel coronary artery disease (LAD and RCA). 2. Successful drug-eluting stent placement in the ostial right coronary artery in-stent restenosis. 3. Normal FFR of the mid right coronary artery. [facility]ITAL[facility]
== END 2018-05-08 18:42 | disposition home or self-care (01) ==
LOC: CCL 06:23
PROVIDERS: ATTEND Internal Medicine Cardiovascular Disease
PROC: B2111ZZ Fluoroscopy of Multiple Coronary Arteries using Low Osmolar Contrast (ICD-10-PCS; principal; 2018-05-08)
PROC: 4A023N7 Measurement of Cardiac Sampling and Pressure, Left Heart, Percutaneous Approach (ICD-10-PCS; principal; 2018-05-08)
PROC: 027034Z Dilation of Coronary Artery, One Artery with Drug-eluting Intraluminal Device, Percutaneous Approach (ICD-10-PCS; principal; 2018-05-08)
DX: I25.10 Atherosclerotic heart disease of native coronary artery without angina pectoris (principal); I11.0 Hypertensive heart disease with heart failure; I50.22 Chronic systolic (congestive) heart failure; I48.0 Paroxysmal atrial fibrillation; I42.8 Other cardiomyopathies; I48.92 Unspecified atrial flutter; J44.9 Chronic obstructive pulmonary disease, unspecified; E78.00 Pure hypercholesterolemia, unspecified; Z87.891 Personal history of nicotine dependence; Z79.01 Long term (current) use of anticoagulants; Z79.51 Long term (current) use of inhaled steroids; Z79.52 Long term (current) use of systemic steroids; Z79.82 Long term (current) use of aspirin; Z79.899 Other long term (current) drug therapy; Z91.041 Radiographic dye allergy status; Z95.1 Presence of aortocoronary bypass graft; Z95.2 Presence of prosthetic heart valve; Z95.5 Presence of coronary angioplasty implant and graft; Z98.890 Other specified postprocedural states
CPT/HCPCS: 80061; 85347; 85610; 85730; 92928; 93005; 93454; 93571; 93798; 99152; C1769; C1887; C9600; J0153; J0583; J1644; J2250; J3010; Q9967

== ENCOUNTER 2018-08-10 14:49 | Inpatient (IN) | payer BC, MEDICARE ==
[2018-08-10 15:30] LABS: #Eosinphils 0.2 thou/uL (0.0-0.7); #Lymphocytes 1.5 thou/uL (1.20-3.40); #Monocytes 1.1 thou/uL (0.11-0.59); #Neutrophils 7.4 thou/uL (1.40-6.50); %Basophils 0.1 % (0.0-1.0); %Eosinophils 1.9 % (0.0-10.0); %Lymphocytes 14.4 % (21.0-51.0); %Monocytes 10.4 % (0.0-10.0); %Neutrophils 73.2 % (42.0-75.0); Hemoglobin 14.9 g/dL (14.0-18.0); Mean Corpuscular HGB CONC 32.9 g/dL (32.0-36.0); Mean Corpuscular Hemoglobin 29.9 pg (27.0-31.0); Mean Platelet Volume 8.3 fL (7.4-10.4); Platelet Count 276 thou/uL (130-400); RBC Distribution Width 12.7 % (11.5-14.5); Red Blood Cell (RBC) Count 4.99 mill/uL (4.70-6.10); White Blood Cell (WBC) Count 10.1 thou/uL (4.8-10.8)
--- NOTE | 2018-08-10 15:51 | CT ---
EXAM: Abdomen and pelvic CT scan without contrast: HISTORY: Right inguinal pain COMPARISON: 03/29/2018 FINDINGS: Evaluation is limited without the presence of IV or enteric contrast Linear and nodular density at the left lung base, incompletely evaluated. Nodule is of groundglass mo rphology, somewhat ill-defined, and 13 mm in diameter. Liver: Unremarkable. Gallbladder: Unremarkable. Pancreas: Unremarkable Spleen: Unremarkable. Adrenal glands: Unremarkable. Kidneys: No renal calculus or acute obstruction. There is prostate calcification. Bowel: Colonic diverticulosis Urinary Bladder: The urinary bladder is unremarkable. Adenopathy: No adenopathy within the abdomen or pelvis. Free Air: No free air. Ascites: No ascites. Osseous structures: No acute osseous abnormalities. IMPRESSION: No urolithiasis or obstructive uropathy. Incidental reticulonodular densities of the left lung base. This could relate to atelectasis and/or p neumonitis. Recommend 6-8 week follow-up CT thorax with contrast to confirm resolution of left lung base nodule. Evaluation otherwise limited by noncontrast technique. CODE T/CODE LUNG NODULE
[2018-08-10 15:58] LABS: ALT (SGPT) 13 U/L (8-55); AST (SGOT) 16 U/L (5-34); Albumin 4.3 g/dL (3.5-5.0); Alkaline Phosphatase 97 U/L (40-150); Anion Gap 13 mmol/L (10-20); BUN (Urea Nitrogen) 12 mg/dL (8.4-25.7); Bilirubin, Total 0.7 mg/dL (0.2-1.2); Calc. Creatinine Clearance 0 mL/min (70-130); Calcium 10.2 mg/dL (7.8-10.44); Carbon Dioxide 25 mmol/L (22-29); Chloride 104 mmol/L (98-107); Estimated GFR-MDRD 56; Globulin 3.8 g/dL (2.4-3.5); Glucose 95 mg/dL (70-105); Potassium 3.4 mmol/L (3.5-5.1); Protein, Total 8.1 g/dL (6.0-8.3); Sodium 139 mmol/L (136-145)
[2018-08-10] MEDS ORDERED: Ondansetron PF 4 MG/2 ML Vial ONE (16:04)
[2018-08-10] MEDS ORDERED: Morphine 4 MG/ML VIAL ONE (16:04)
[2018-08-10 16:09] LABS: INR-International Normal Ratio 2.7; Prothrombin Time 28.8 SEC (12.0-14.7)
[2018-08-10 16:10] LABS: PTT 54.6 SEC (22.9-36.1)
[2018-08-10 16:25] LABS: CKMB 1.4 ng/mL (0-6.6)
--- NOTE | 2018-08-10 16:49 | ULT ---
Exam: Testicular/scrotal ultrasound HISTORY: Scrotal pain COMPARISON: None TECHNIQUE: Multiplanar grayscale and color Doppler images were obtained in a testicular/scrotal ultra sound. Spectral analysis of the Doppler waveforms of the testicles were performed. FINDINGS: Right testicle: Normal in echogenicity. No focal mass. Normal internal flow. A small right hydrocele is seen. Left testicle: Normal in echogenicity. No focal mass. Normal internal flow. A complex left large hydr ocele is present. Right epididymis. Normal internal flow. No epididymal cyst. Left epididymis. Not visualized. No varicocele is present. IMPRESSION: Large left complex hydrocele
[2018-08-10 17:05] LABS: Bilirubin Negative (Negative); Blood, Urine Trace (Negative); Clarity CLEAR (Clear); Glucose, Urine (Dipstick) Negative (Negative); Leukocyte Negative (Negative); Nitrite Negative (Negative); Protein, Urine (Dipstick) Negative (Neg-Trace); Specific Gravity, Urine 1.009 (1.002-1.036); pH, Urine 7.5 (5.0-9.0)
[2018-08-10 17:07] LABS: Bacteria/HPF None Seen HPF (None Seen); Hyaline Casts/LPF 0-3 HYALINE CAST LPF (0-3 Hyaline); Squamous Epithelial None Seen HPF (0-3); WBC/HPF None Seen HPF (0-3)
[2018-08-10] MEDS ORDERED: Clindamycin/D5W 900 mg/50 ml Premix Bag ONE (17:21)
--- NOTE | 2018-08-10 17:52 | PDOC.FPRHP ---
- History of Present Illness Chief Complaint: Scrotal pain, difficulty urinating History of Present Illness: 57 yo M with PMH of mechanical AV, HTN, CAD presents for scrotal pain and difficulty urinating. Pt reports he developed a painful spot on the right side of scrotum 8 days ago. He placed hydrocortisone on the spot because it was itching, and developed a larger rash over the area. He states then he developed other sores underneath his scrotum and on left side. 3 days ago he developed fever and chills, he went to his PCP, was diagnosed with cellulitis and started on bactrim. His fever resolved, however he still complains of abdominal pain, nausea, fatigue. He also was having difficulty urinating and was having to push but was not able to. However this has now resolved and he was able to urinate here. He complains of a constant L sided throbbing chest pain and abdominal pain associated with his scrotal pain. In ED, he received clindamycin, zofran, morphine, and 1L NS. US scrotum showed Left sided large varicocele, which patient states he has had for a long time. CT thorax (without contrast, patient has allergy-rash) showed only incidental LL lobe nodule. - Allergies/Adverse Reactions Allergies Allergy/AdvReac Type Severity Reaction Status Date / Time Iodinated Contrast- Oral and Allergy Hives Verified 05/06/18 10:59 IV Dye - Home Medications Medication Instructions Recorded Confirmed Type Digoxin [Digox] 125 mcg PO DAILY 10/22/13 08/10/18 History Nitroglycerin [Nitrostat] 0.4 mg SL ASDIR PRN 10/22/13 08/10/18 History Budesonide-Formoterol [Symbicort 2 puff INH BID 01/04/17 08/10/18 History 160-4.5] Losartan [Cozaar] 25 mg PO DAILY 01/04/17 08/10/18 History Tiotropium Br/Olodaterol HCl 2 puff IH DAILY 01/04/17 08/10/18 History [Stiolto Respimat Inhal Zanoni] Ezetimibe 5 mg PO DAILY 01/08/17 08/10/18 History Furosemide [Lasix] 40 mg PO BID 01/09/17 08/10/18 History Albuterol Sulfate [Proair HFA] 1 puff PO PRN PRN 05/06/18 08/10/18 History Aspirin [Aspir-Low] 81 mg PO DAILY 05/06/18 08/10/18 History FLUoxetine HCl [Fluoxetine HCl] 10 mg PO DAILY 05/06/18 08/10/18 History Rosuvastatin Calcium [Crestor] 5 mg PO HS 05/06/18 08/10/18 History Warfarin Sodium 5 mg PO DAILY 05/06/18 08/10/18 History Folic Acid [Folvite] 1 tab PO DAILY 08/10/18 08/10/18 History HYDROcodone/Acetaminophen [[place] 1 tab PO PRN PRN 08/10/18 08/10/18 History 10-325 Tablet] Ticagrelor [Brilinta] 1 tab PO BID 08/10/18 08/10/18 History - History PMHx: scrotal cellulits, HTN, HLD, CAD, Hx mechanical AV, pirimformis, hydrocele PSHx: AV, 3 back surgeries, appendectomy, L hernia repair FHx: No cardiac disease, no diabetes. Sister of breast cancer. Social: Pt's has breast cancer, mother just track liner operator her hip. No tobacco, alcohol, or drug use. - Review of Systems General: reports: fever/chills, weight/appetite/sleep changes Eyes: denies: eye pain, vision changes ENT: denies: nasal congestion, rhinorrhea Respiratory: denies: cough, congestion, shortness of breath Cardiovascular: reports: chest pain. denies: palpitation, edema Gastrointestinal: reports: nausea. denies: vomiting, diarrhea, constipation, abdominal pain, GI bleeding Genitourinary: reports: dysuria, other (urinary retention) Skin: reports: rashes, lesions Musculoskeletal: reports: pain (scrotum), tenderness. denies: other (no joint stiffness or swelling) Neurological: denies: numbness, weakness - Vital signs BP: 115/76 HR: 66 RR: 18 Tmax: 98F Pox: 99% on RA Wt: 99 kg - Physical Exam Constitutional: NAD, awake, alert and oriented HEENT: normocephalic and atraumatic, PERRLA, conjunctiva clear, grossly normal hearing, normal nasal mucosa, MMM Neck: supple, no LAD Heart: RRR, no edema, other (S2 click, no murmurs rubs or gallops) Lungs: no respiratory distress, good air movement, no wheezing, no retractions, other (LLL crackles) Abdomen: soft, bowel sounds present, no masses/distention, other (diffuse abdominal tenderness, no guarding or rebound.) Musculoskeletal: normal structure, normal tone Neurological: no focal deficit, other (Alert and oriented) Skin: good turgor, capillary refill <2 seconds, other (purulent ulcers on scrotum, largest on right side. Bleeding scabs underneath scrotum. Tender to palpation swelling in left groin. +lymphadenopathy. No redness or erythema around urethra. GI/U exam: rectal exam shows good sphincter tone, firm nontender prostate with no nodules.) Heme/Lymphatic: no unusual bruising or bleeding, no purpura Psychiatric: normal mood and affect, good judgment and insight, intact recent and remote memory FMR H&P: Results - Labs Result Diagrams: 08/10/18 15:12 08/11/18 04:48 Lab results: WBC 10.1 thou/uL (4.8-10.8) 08/10/18 15:12 Hgb 14.9 g/dL (14.0-18.0) 08/10/18 15:12 Hct 45.4 % (42.0-52.0) 08/10/18 15:12 MCV 91.0 fL (78.0-98.0) 08/10/18 15:12 Plt Count 276 thou/uL (130-400) 08/10/18 15:12 Neutrophils % 73.2 % (42.0-75.0) 08/10/18 15:12 Sodium 139 mmol/L (136-145) 08/10/18 15:12 Potassium 3.4 mmol/L (3.5-5.1) L 08/10/18 15:12 Chloride 104 mmol/L (98-107) 08/10/18 15:12 Carbon Dioxide 25 mmol/L (22-29) 08/10/18 15:12 BUN 12 mg/dL (8.4-25.7) 08/10/18 15:12 Creatinine 1.32 mg/dL (0.7-1.3) H 08/10/18 15:12 Glucose 95 mg/dL (70-105) 08/10/18 15:12 Lactic Acid 1.7 mmol/L (0.5-2.2) 08/10/18 15:12 Calcium 10.2 mg/dL (7.8-10.44) 08/10/18 15:12 Total Bilirubin 0.7 mg/dL (0.2-1.2) 08/10/18 15:12 AST 16 U/L (5-34) 08/10/18 15:12 ALT 13 U/L (8-55) 08/10/18 15:12 Alkaline Phosphatase 97 U/L (40-150) 08/10/18 15:12 CK-MB (CK-2) 1.4 ng/mL (0-6.6) 08/10/18 15:12 Serum Total Protein 8.1 g/dL (6.0-8.3) 08/10/18 15:12 Albumin 4.3 g/dL (3.5-5.0) 08/10/18 15:12 Urine Ketones Negative mg/dL (Negative) 08/10/18 16:59 Urine Blood Trace (Negative) H 08/10/18 16:59 Urine Nitrite Negative (Negative) 08/10/18 16:59 Ur Leukocyte Esterase Negative (Negative) 08/10/18 16:59 Urine RBC 7-10 HPF (0-3) H 08/10/18 16:59 Urine WBC None Seen HPF (0-3) 08/10/18 16:59 Ur Squamous Epith Cells None Seen HPF (0-3) 08/10/18 16:59 Urine Bacteria None Seen HPF (None Seen) 08/10/18 16:59 - Radiology Interpretation Other Status: report reviewed by me Additional comment: US scrotum- Large left hydrocele FMR H&P: A/P - Problem List (1) Cellulitis of scrotum Current Visit: Yes Status: Acute Code(s): N49.2 - INFLAMMATORY DISORDERS OF SCROTUM (2) Systolic and diastolic CHF, chronic Current Visit: Yes Status: Chronic Code(s): I50.42 - CHRONIC COMBINED SYSTOLIC AND DIASTOLIC HRT FAIL (3) Urinary retention Current Visit: Yes Status: Acute Code(s): R33.9 - RETENTION OF URINE, UNSPECIFIED (4) Elevated troponin Current Visit: Yes Status: Chronic Code(s): R74.8 - ABNORMAL LEVELS OF OTHER SERUM ENZYMES (5) HLD (hyperlipidemia) Current Visit: Yes Status: Chronic Code(s): E78.5 - HYPERLIPIDEMIA, UNSPECIFIED (6) CAD (coronary artery disease) Current Visit: Yes Status: Chronic Code(s): I25.10 - ATHSCL HEART DISEASE OF [place] CORONARY ARTERY W/O ANG PCTRS (7) Hydrocele in adult Current Visit: Yes Status: Chronic Code(s): N43.3 - HYDROCELE, UNSPECIFIED (8) Heart valve replaced Current Visit: No Status: Chronic Code(s): Z95.2 - PRESENCE OF PROSTHETIC HEART VALVE (9) Hypertension Current Visit: No Status: Chronic Code(s): I10 - ESSENTIAL (PRIMARY) HYPERTENSION (10) ELANA (acute kidney injury) Current Visit: Yes Status: Acute Code(s): N17.9 - ACUTE KIDNEY FAILURE, UNSPECIFIED - Plan Scrotal cellulitis -VSS. Was on outpatient bactrim and fever improved, however pain/sores worsening. -No s/s of prostatitis. -s/p cleocin in ED and 1 L NS. -US showed only L hydrocele; CT abdomen (w/o contrast) negative, showed only LLL nodule -Vancomycin IV started 08/09 -Continue MIVF. -Zofran for nausea. -Culture of wound pending -Wound care consulted -HIV/RPR screen pending Brief Urinary retention -Monitor strict I/Os for return of urinary retention ELANA -Cr increased to 1.3 from 1 - On IV fluids, continue to monitor Mixed HFpEF/HFrEF -Echo 04/03: 35-40% EF -On digoxin -On MIVF, monitor for s/s of fluid overload Elevated troponin -Likely chronic from demand ischemia -Will trend second troponin HTN -resume home meds HLD/CAD -resume home meds Hx Mechanical AV valve -aware. On coumadin. INR 2.7. Chronic Hydrocele -seen on US. Aware. Diet: Reg PCP: Augie DVT ppx: coumadin Code status: FULL code FMR H&P: Upper Level - Pertinent history 57 yr old male with PMH of CAD s/p stent, s/p mechanical aortic valve replacement, and HTN who presents for testicular pain and drainage. Had a cut in his scrotum started 8 days ago and had been draining. Got Bactrim by PCP 3 days ago and reports there was improvement until this morning he felt he couldn t urinate so came into ER. States since starting IV antibiotics, he is able to urinate and feeling little better. Had fever earlier in the week before getting on Bactrim, but none since. - Pertinent findings Gen: Heart: RRR, click noted and heard best in RUSB. No murmurs Lungs: CTAB, no wheezing, rhales, rhonchi Abd: normal active bowel sounds, soft non tender : bilateral lower scrotal open wounds with evidence of recent purulent drainage although no drainage expressed during exam. Tender along left groin into pelvic region. Rectal performed by Dr. White Ext: No edema in BLE Neuro: no focal neurologic deficits, CN 2-12 grossly intact. - Plan Date/Time: 08/10/18 [id number] I, [Jihan Bean], have evaluated this patient and agree with findings/plan as outlined by psychology intern resident. Pertinent changes/additions are listed here. Bilateral Scrotal purulent cellulitis -afebrile, normal HR, no leukocytosis or tachypnea -given he has essentially failed outpatient oral antibiotics(urinary retention and swelling), will place on IV vanc -no evidence of fourniers on CT -consider surgical consult if worsening overnight or in AM -no evidence of abscess on CT however not done with contrast due to allergy, consider premedicating and contrast CT if not improving. Acute kidney injury -traci following urinary retention today -gentle IV fluids -recheck in AM Reticulonodular density of left lower lobe -needs follow up CT with PCP Hypokalemia -replete 2 vessel CAD s/p stent (LAD & RCA) -elevated trop at admission, suspect demain ischemia, will trend. HFrEF -last ECHO with EF of 35-40% -dizziness with beta neha -cont cozaar, crestor, and digoxin Hx of Mechanical arotic vavle replacement -on warfarin -INR 2.7, at goal. Insomnia -cont restoril COPD -no exacerbation at this time -cont current home regimen PCP: Dr. Ghosh DVT ppx: warfarin Code status: Full GI ppx: cimetidine Addendum - Attending - Attending Attestation Date/Time: 08/11/18 1031 I personally evaluated the patient and discussed the management with Dr. Walker I agree with the History, Examination, Assessment and Plan documented above with any addition or exceptions noted below.
[2018-08-10 18:26] VITALS: BMI 27.0
[2018-08-10] MEDS ORDERED: Acetaminophen 650 MG Suppository PR PRN (19:53)
[2018-08-10] MEDS ORDERED: Acetaminophen 325 MG TAB PO PRN (19:53)
[2018-08-10] MEDS ORDERED: Ondansetron ODT 4 MG TAB PO PRN (19:53)
[2018-08-10] MEDS ORDERED: Ondansetron PF 4 MG/2 ML Vial IVP PRN (19:53)
[2018-08-10 20:16] LABS: Troponin I 0.029 ng/mL (< 0.028)
--- NOTE | 2018-08-10 20:20 | PDOC.EVN ---
Addendum - Attending - Attending Attestation Date/Time: 08/10/182006 I personally evaluated the patient and discussed the management with Drs. rupesh Walker/[place] I agree with the History, Examination, Assessment and Plan as in separate document. 57 yo male seen at office with cellulitis scrotum and started on po Bactrim. Patient endorses fever yesterday today with increased pain and unable to void. Patient to [facility] ER under CT abdomen and pelvis without contrast due to iodine allergy and admitted for failed out patient management. 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
[2018-08-10 20:51] LABS: Syphilis Antibody Nonreactive (Nonreactive); Syphilis Antibody Index 0.05 S/CO (<1.00 Non-Reactive)
[2018-08-10] MEDS: Vancomycin HCl 1.5 GM in Sodium Chloride 0.9% 250 ML 300 ML IVPB SCH (21:07)
[2018-08-10] MEDS: Sodium Chloride 0.9% 1,000 ML IV SCH (21:07)
[2018-08-10] MEDS ORDERED: Nitroglycerin 0.4 MG TAB (25 Tab Bottle) SL PRN (22:20)
[2018-08-10 22:27] LABS: HIV (1/2) Antibody/Antigen Non-Reactive (NonReactive); HIV 1/2 INDEX 0.14 S/CO (<1.00)
[2018-08-10] MEDS: Furosemide 40 MG TAB PO SCH (22:43)
[2018-08-10] MEDS: Ezetimibe 10 MG TAB PO SCH (22:43)
[2018-08-10] MEDS ORDERED: Ibuprofen 800 MG TAB PO SCH (22:45)
[2018-08-10] MEDS: Rosuvastatin 10 MG TAB PO SCH (22:51)
[2018-08-10] MEDS: Clindamycin/D5W 900 MG in Premix Bag 1 BAG IVPB SCH ×2 (22:54→23:02)
[2018-08-10] MEDS ORDERED: TICAGRELOR 90 MG TABLET PO SCH (23:45)
[2018-08-10] MEDS ORDERED: Potassium Chloride 20 MEQ TAB PO SCH (23:45)
[2018-08-11] MEDS: HYDROcodone/Acetaminophen 10/325 mg Tablet PO PRN ×2 (00:19→21:59)
[2018-08-11] MEDS: Sodium Chloride 0.9% 1,000 ML IV SCH ×4 (03:25→20:50)
[2018-08-11 05:17] LABS: Prothrombin Time 39.8 SEC (12.0-14.7)
[2018-08-11 05:18] LABS: PTT 68.1 SEC (22.9-36.1)
[2018-08-11 05:25] LABS: Anion Gap 10 mmol/L (10-20); BUN (Urea Nitrogen) 18 mg/dL (8.4-25.7); Calc. Creatinine Clearance 76 mL/min (70-130); Calcium 9.2 mg/dL (7.8-10.44); Carbon Dioxide 26 mmol/L (22-29); Chloride 106 mmol/L (98-107); Estimated GFR-MDRD 50; Glucose 92 mg/dL (70-105); Potassium 4.5 mmol/L (3.5-5.1); Sodium 137 mmol/L (136-145)
[2018-08-11 05:26] LABS: INR-International Normal Ratio 4.1
[2018-08-11] MEDS ORDERED: Clindamycin/D5W 600 MG in Premix Bag 1 BAG IVPB SCH (06:00)
[2018-08-11] MEDS: Mometasone/Formoterol 120 PUFF INHALER INH SCH ×2 (06:18→19:37)
[2018-08-11] MEDS: Ibuprofen 800 MG TAB PO SCH ×3 (06:24→20:47)
--- NOTE | 2018-08-11 06:52 | PDOC.FM ---
- Subjective Subjective: Stuart Lozada seen at bedside this morning. He has no complaints, states that he feels like the scrotal pain is improving. He denies any new sexual partners, states that he has not been sexually active in the last 2 years. There were no acute events overnight. He denies fevers, chills, chest pain, dyspnea, n/v, abdominal pain. - Objective MAR Reviewed: Yes Vital Signs & Weight: Vital Signs (12 hours) Temp Pulse Resp BP Pulse Ox 08/11/18 06:18 55 L 16 98 08/11/18 06:00 98 F 58 L 18 110/53 L 95 08/11/18 00:15 98.4 F 60 15 113/74 95 08/10/18 20:00 98.5 F 79 18 115/77 95 Weight Weight 97.976 kg I&O: 08/09/18 08/10/18 08/11/18 06:59 06:59 06:59 Intake Total 2049 Balance 2049 Result Diagrams: 08/10/18 15:12 08/11/18 04:48 Phys Exam - Physical Examination Constitutional: NAD HEENT: moist MMs, sclera anicteric Neck: supple, full ROM Respiratory: no wheezing, no rales, no rhonchi, clear to auscultation bilateral Cardiovascular: RRR, no significant murmur Gastrointestinal: soft, non-tender, no distention Musculoskeletal: no edema, pulses present Neurological: non-focal, normal sensation, moves all 4 limbs Psychiatric: normal affect, A&O x 3 Deviation from normal: ulcerated draining wounds to scrotum Dx/Plan (1) Cellulitis of scrotum Code(s): N49.2 - INFLAMMATORY DISORDERS OF SCROTUM Status: Acute (2) ELANA (acute kidney injury) Code(s): N17.9 - ACUTE KIDNEY FAILURE, UNSPECIFIED Status: Acute (3) CAD (coronary artery disease) Code(s): I25.10 - ATHSCL HEART DISEASE OF [place] CORONARY ARTERY W/O ANG PCTRS Status: Chronic (4) HLD (hyperlipidemia) Code(s): E78.5 - HYPERLIPIDEMIA, UNSPECIFIED Status: Chronic (5) Hydrocele in adult Code(s): N43.3 - HYDROCELE, UNSPECIFIED Status: Chronic (6) Systolic and diastolic CHF, chronic Code(s): I50.42 - CHRONIC COMBINED SYSTOLIC AND DIASTOLIC HRT FAIL Status: Chronic - Plan Plan: Scrotal cellulitis -VSS. Was on outpatient bactrim and fever improved, however pain/sores worsening. -No s/s of prostatitis. -s/p cleocin in ED and 1 L NS. -US showed only L hydrocele; CT abdomen (w/o contrast) negative, showed only LLL nodule -Vancomycin IV started 08/09 -Zofran for nausea. -Culture of wound pending -Wound care consulted -HIV/RPR screen negative Brief Urinary retention -Monitor strict I/Os for return of urinary retention ELANA -will continue to monitor -On mIVFs Mixed HFpEF/HFrEF -Echo 04/03: 35-40% EF -On digoxin -On mIVF, monitor for s/s of fluid overload -daily weights Elevated troponin -Likely chronic from demand ischemia -Will trend second troponin HTN -resume home meds HLD/CAD -resume home meds Hx Mechanical AV valve -continue home coumadin -monitor INRs Chronic Hydrocele -seen on US. Addendum - Attending - Attending Attestation Date/Time: 08/11/18 8868 I personally evaluated the patient and discussed the management with Dr. Ghosh I agree with the History, Examination, Assessment and Plan documented above with any addition or exceptions noted below. Patient without BM severla days he is voiding well and appears improved will f/ u any cultures and gtram stains continue IV antibiotic for now. Patient with desire to lease ROSSY with ill and Mother however stressed importance of adequate treatment of scrotal cellulitis. Will advise Urology of admission with HX complex left sided hydrocoele which has been followed by Urology.
[2018-08-11] MEDS: Digoxin 0.125 MG TAB PO SCH (08:01)
[2018-08-11] MEDS: Polyethylene Glycol 3350 17 GM Packet PO SCH (08:01)
[2018-08-11] MEDS: Ezetimibe 10 MG TAB PO SCH (08:01)
[2018-08-11] MEDS: Aspirin 81 mg Enteric Coated Tablet PO SCH (08:02)
[2018-08-11] MEDS: FLUoxetine HCl 10 MG CAP PO SCH (08:02)
[2018-08-11] MEDS: Senokot S 8.6-50 MG TAB PO SCH ×2 (08:02→20:48)
[2018-08-11] MEDS: Losartan 25 MG TAB PO SCH (08:02)
[2018-08-11] MEDS: Furosemide 40 MG TAB PO SCH ×2 (08:02→20:48)
[2018-08-11] MEDS: Folic Acid 1 MG TAB PO SCH (08:02)
[2018-08-11] MEDS: Vancomycin HCl 1.5 GM in Sodium Chloride 0.9% 250 ML 300 ML IVPB SCH ×2 (08:09→20:50)
[2018-08-11] MEDS ORDERED: TICAGRELOR 90 MG TABLET PO SCH (09:00)
[2018-08-11] MEDS ORDERED: Polyethylene Glycol 3350 17 GM Packet PO SCH (09:00)
[2018-08-11] MEDS ORDERED: Clopidogrel Bisulfate 75 MG TAB PO SCH (09:00)
[2018-08-11] MEDS: TICAGRELOR 90 MG TABLET PO SCH ×2 (09:16→20:53)
[2018-08-11] MEDS ORDERED: Warfarin Sodium 5 MG TAB PO SCH ×2 (17:00)
[2018-08-11] MEDS: Rosuvastatin 10 MG TAB PO SCH (20:48)
[2018-08-12] MEDS: Ibuprofen 800 MG TAB PO SCH ×3 (04:20→20:28)
[2018-08-12] MEDS: Mometasone/Formoterol 120 PUFF INHALER INH SCH ×2 (06:37→19:18)
--- NOTE | 2018-08-12 06:48 | PDOC.FM ---
- Subjective Subjective: Stuart Lozada seen at bedside this morning. Overnight, patient had one episodes of large blood BM, passing BRBPR and large dark clots. Patient states this has never happened to him is the past, despite having labile INRs in the past. His INR yesterday was 4.1, repeat this morning after holding yesterdays dose of coumadin was 3.0. He has never had a colonoscopy. He denies any abdominal pain at this time. He denies fever, chills, chest pain, dyspnea, n/v. States that his scrotal wound is improving. - Objective MAR Reviewed: Yes Vital Signs & Weight: Vital Signs (12 hours) Temp Pulse Resp BP Pulse Ox 08/12/18 06:37 62 16 99 08/12/18 03:48 98.4 F 56 L 18 129/72 96 08/12/18 03:39 98.2 F 85 20 138/83 97 08/11/18 20:00 98.2 F 72 18 135/79 96 08/11/18 19:37 98 Weight Weight 97.976 kg I&O: 08/10/18 08/11/18 08/12/18 06:59 06:59 06:59 Intake Total 2049 1260 Balance 2049 1260 Result Diagrams: 08/12/18 08:06 08/12/18 08:06 Phys Exam - Physical Examination Constitutional: NAD HEENT: moist MMs, sclera anicteric Neck: supple, full ROM Respiratory: no wheezing, no rales, no rhonchi, clear to auscultation bilateral Cardiovascular: RRR, no significant murmur Gastrointestinal: soft, non-tender, no distention Musculoskeletal: no edema, pulses present Neurological: non-focal, normal sensation, moves all 4 limbs Psychiatric: normal affect, A&O x 3 Deviation from normal: ulcerated draining wounds to scrotum, improvement compared to yesterday Dx/Plan (1) Acute GI bleeding Code(s): K92.2 - GASTROINTESTINAL HEMORRHAGE, UNSPECIFIED Status: Acute (2) Cellulitis of scrotum Code(s): N49.2 - INFLAMMATORY DISORDERS OF SCROTUM Status: Acute (3) ELANA (acute kidney injury) Code(s): N17.9 - ACUTE KIDNEY FAILURE, UNSPECIFIED Status: Acute (4) CAD (coronary artery disease) Code(s): I25.10 - ATHSCL HEART DISEASE OF [place] CORONARY ARTERY W/O ANG PCTRS Status: Chronic (5) HLD (hyperlipidemia) Code(s): E78.5 - HYPERLIPIDEMIA, UNSPECIFIED Status: Chronic (6) Hydrocele in adult Code(s): N43.3 - HYDROCELE, UNSPECIFIED Status: Chronic (7) Systolic and diastolic CHF, chronic Code(s): I50.42 - CHRONIC COMBINED SYSTOLIC AND DIASTOLIC HRT FAIL Status: Chronic - Plan Plan: Acute GI bleed -one episode of painless, large bloody BM, passing BRBPR and large dark clots -INR elevated yesterday at 4.1 and coumadin was held, this morning, INR is 3.0 -pt has never had colonoscopy, will likely need one outpatient if there is no more GI bleeding -consulted Dr. Ybarra, GI, appreciate recs Scrotal cellulitis -VSS. Was on outpatient bactrim and fever improved, however pain/sores worsening. -no s/s of prostatitis -s/p cleocin in ED and 1 L NS. -US showed only L hydrocele; CT abdomen (w/o contrast) negative, showed only LLL nodule -Vancomycin IV started 08/10 -Zofran for nausea. -Culture of wound grew Staph aureus, sensitive to clinda and bactrim -Wound care consulted -HIV/RPR screen negative Brief Urinary retention -Monitor strict I/Os for return of urinary retention ELANA -will continue to monitor -On mIVFs -CMP this AM pending Mixed HFpEF/HFrEF -Echo 04/03: 35-40% EF -On digoxin -On mIVF, monitor for s/s of fluid overload -daily weights Elevated troponin -Likely chronic from demand ischemia -Will trend second troponin HTN -resume home meds HLD/CAD -resume home meds Hx Mechanical AV valve -continue home coumadin -monitor INRs -INR yesterday was 4.1 -One episodes of BRBPR today, repeat INR pending, dose of coumadin held Chronic Hydrocele -seen on US. Addendum - Attending - Attending Attestation Date/Time: 08/12/18 1027 I personally evaluated the patient and discussed the management with Dr. Ghosh I agree with the History, Examination, Assessment and Plan documented above with any addition or exceptions noted below.Concern with large melena stool last pm , Patient remains hemodynamically stable at present, INR was supratherapeutic given no prior endoscopy will consult GI for opinion. Rec transfuse prn and continue cardiac monitoring.Wound is improved will transition to po antibiotics continue trend INR and H/H
[2018-08-12 08:19] LABS: Hemoglobin 12.8 g/dL (14.0-18.0); Platelet Count 210 thou/uL (130-400)
[2018-08-12 08:27] LABS: Prothrombin Time 31.5 SEC (12.0-14.7)
[2018-08-12 08:28] LABS: INR-International Normal Ratio 3.1; Prothrombin Time 31.8 SEC (12.0-14.7)
[2018-08-12 08:29] LABS: PTT 64.8 SEC (22.9-36.1)
[2018-08-12 08:38] LABS: Vancomycin, Trough 20.8 ug/mL
[2018-08-12 08:40] LABS: Digoxin 0.44 ng/mL (0.8-2.0)
[2018-08-12 08:45] LABS: ALT (SGPT) 12 U/L (8-55); AST (SGOT) 17 U/L (5-34); Albumin 3.3 g/dL (3.5-5.0); Alkaline Phosphatase 78 U/L (40-150); Anion Gap 10 mmol/L (10-20); BUN (Urea Nitrogen) 16 mg/dL (8.4-25.7); Bilirubin, Total 0.4 mg/dL (0.2-1.2); Calc. Creatinine Clearance 104 mL/min (70-130); Calcium 8.7 mg/dL (7.8-10.44); Carbon Dioxide 20 mmol/L (22-29); Chloride 111 mmol/L (98-107); Estimated GFR-MDRD 71; Globulin 2.8 g/dL (2.4-3.5); Glucose 92 mg/dL (70-105); Potassium 4.2 mmol/L (3.5-5.1); Protein, Total 6.1 g/dL (6.0-8.3); Sodium 137 mmol/L (136-145)
[2018-08-12] MEDS: Ezetimibe 10 MG TAB PO SCH ×2 (08:46→09:58)
[2018-08-12] MEDS: Losartan 25 MG TAB PO SCH (08:46)
[2018-08-12] MEDS: Furosemide 40 MG TAB PO SCH ×2 (08:47→20:28)
[2018-08-12] MEDS: FLUoxetine HCl 10 MG CAP PO SCH (08:47)
[2018-08-12] MEDS: Senokot S 8.6-50 MG TAB PO SCH ×2 (08:47→20:28)
[2018-08-12] MEDS: Polyethylene Glycol 3350 17 GM Packet PO SCH (08:48)
[2018-08-12] MEDS: TICAGRELOR 90 MG TABLET PO SCH (08:51)
[2018-08-12] MEDS: Aspirin 81 mg Enteric Coated Tablet PO SCH (08:52)
[2018-08-12] MEDS: Folic Acid 1 MG TAB PO SCH (08:53)
[2018-08-12] MEDS: Vancomycin HCl 1.5 GM in Sodium Chloride 0.9% 250 ML 300 ML IVPB SCH (09:47)
[2018-08-12] MEDS: Sodium Chloride 0.9% 1,000 ML IV SCH ×2 (10:45→17:23)
[2018-08-12] MEDS: Clindamycin 150 MG CAP PO SCH ×3 (12:23→20:28)
[2018-08-12] MEDS: Digoxin 0.125 MG TAB PO SCH (12:26)
[2018-08-12] MEDS ORDERED: Warfarin Sodium 2.5 MG TAB PO SCH (17:00)
[2018-08-12] MEDS ORDERED: GoLYTELY 4,000 ml Bottle PO SCH (19:15)
[2018-08-12 19:29] LABS: Chlam.trachomatis by PCR,Urine Not Detected (NotDetected)
[2018-08-12] MEDS: Pantoprazole 40 MG VIAL IVP SCH (19:48)
[2018-08-12 20:17] VITALS: TEMP 98.1
[2018-08-12] MEDS: Rosuvastatin 10 MG TAB PO SCH (20:28)
[2018-08-12] MEDS ORDERED: Ezetimibe 10 MG TAB PO SCH (21:00)
[2018-08-12] MEDS ORDERED: Aspirin 81 mg Enteric Coated Tablet PO SCH (21:00)
[2018-08-12] MEDS ORDERED: Folic Acid 1 MG TAB PO SCH (21:00)
--- NOTE | 2018-08-12 23:15 | PRG ---
DATE OF SERVICE: 08/12/2018 SUBJECTIVE: The patient states he is feeling fine. Minimal scrotal pain. No fevers. OBJECTIVE: VITAL SIGNS: Stable. Afebrile. Vital signs reviewed. GENERAL: No apparent distress, communicating and alert. CARDIOVASCULAR: Regular rate and rhythm. ABDOMEN: Soft, nontender, and nondistended. GENITOURINARY: Scrotum appears even less edematous today. No evidence of Lindsay's. No crepitus. Ulcerations are still present. No advancement or worsening signs or symptoms. EXTREMITIES: No clubbing, cyanosis, or edema. LABORATORY EVALUATION: The full set of labs are in the ipsy system which I have reviewed. Of note, the patient's hemoglobin today is 12.8. Creatinine today is 1.07. ASSESSMENT AND PLAN: 57-year-old white male with scrotal cellulitis and infected hydrocele which have spontaneously drained. Appears to be resolving well with antibiotics. Would recommend 7- to 10-day course of either Bactrim or clindamycin or any other antibiotic recommended for MRSA. I will follow up with the patient in approximately 1 to 2 weeks after he is discharged to ensure proper wound healing and to discuss any further urologic issues that he may be concerned about. At the current time, I will sign off as there does not appear need to do anything at this time. I would recommend discharge when deemed stable by the primary care team. The patient should be discharged with a jockstrap for tight compression to eliminate potential space within scrotum. Job ID: [id number]
--- NOTE | 2018-08-13 01:21 | CON ---
DATE OF CONSULTATION: 08/12/2018 REASON FOR CONSULT: Rectal bleeding. HISTORY OF PRESENT ILLNESS: I have been asked to see Mr. Lozada with regard to episode of rectal bleeding that began early this morning. He is a 57-year-old gentleman who came to the emergency room. He was admitted on the for scrotal pain and difficulty urinating and has been diagnosed with scrotal cellulitis. The patient notes that last weekend, he had been at graduation and got a lot of chafing in the scrotal area and ended up getting a terrible rash related to topical medications and then got infection. He is being treated in the outpatient setting, but had developed worsening scrotal pain as well as a red spot on the side of the scrotum with some excoriation tissue there. His PCP placed him on Bactrim and the fever he had as an outpatient resolved, but his symptoms persisted. He was also on some hydrocodone for pain related to this and had difficulty urinating and became constipated. He came to the emergency room and received clindamycin, Zofran, morphine and normal saline. Ultrasound showed a varicocele, which he has had for a long time. He had a CAT scan of the chest, which showed indeterminate left lower lobe nodule. He was doing well, improving with medical treatment here with IV antibiotics uneventfully when earlier this morning, he was going to have a bowel movement, which is a very hard bowel movement and he felt like he had a tear and then started passing blood. At first, he passed bright red blood and some actually black stool, but then passed large dark clot. His INR yesterday was 4.1. He notes he has been on warfarin for some time and has had liable INRs in the past with no bleeding. His Coumadin has been held now. He has had about 4 stools today, which have become progressively less in volume and he feels okay. He denies any nausea or vomiting. He does take a baby aspirin a day, but takes no NSAIDs. He has not had a colonoscopy in the past. He denies any abdominal pain presently. He ate lunch today. ALLERGIES: IODINATED DYES. MEDICATIONS: Digoxin, nitroglycerin p.r.n., which he does not use, Symbicort p.r.n., Cozaar, ezetimibe 5 mg daily, Lasix 40 mg b.i.d., albuterol inhaler p.r.n., aspirin 81 mg daily, fluoxetine 10 mg daily, Crestor 5 mg at bedtime, warfarin 5 mg daily, folic acid with hydrocodone p.r.n. and Brilinta he has been on. PAST MEDICAL HISTORY: Scrotal cellulitis, new diagnosis; hypertension; hyperlipidemia; coronary artery disease; mechanical aortic valve; and hydrocele. PAST SURGICAL HISTORY: Three back surgeries, appendectomy, and left hernia repair. FAMILY HISTORY: No coronary artery disease. No diabetes. Sister of breast cancer. SOCIAL HISTORY: Patient's has breast cancer, she is undergoing chemo up in the [facility] there. Mother had broken hip and he takes care of her in the [place] area where he goes back and forth frequently. He does not smoke, drink, or use drugs. REVIEW OF SYSTEMS: Negative for dysphagia, odynophagia, nausea, vomiting, shortness of breath, chest pain, or dyspnea on exertion. He denies any prior bleeding like this. PRESENT MEDICATIONS: Aspirin, Cleocin 300 mg p.o. q.i.d., amoxicillin, Zetia, fluoxetine, folic acid, Lasix 40 p.o. b.i.d., hydrocodone p.r.n. for pain, ibuprofen for pain, losartan, nitroglycerin p.r.n., normal saline, ordered a bolus, it is held now. Zofran p.r.n., Protonix 40 mg p.o. daily to start tomorrow, and Senokot and Brilinta. PHYSICAL EXAMINATION: VITAL SIGNS: Temperature is 97, pulse 62, and blood pressure 137/82. GENERAL: He is resting comfortably. He is in no distress. LUNGS: Clear. HEART: Regular rate and rhythm. There is a mechanical S2. No murmurs. ABDOMEN: Soft and nontender. There is no rebound. There is no guarding. Bowel sounds are positive. His little bit of stool is dark. Not overtly melenic . There is no clot on rectal exam. EXTREMITIES: No clubbing, cyanosis, or edema. SKIN: Scars from previous surgery in chest and legs. LABORATORY DATA: White count 10.1, hemoglobin was 14.9 on the 2nd and it was 12.8 today. INR was 4.1 on the 3rd and 3 today. BUN 10, creatinine 1, sodium 137, potassium 4.2. Liver function tests normal. Albumin 3. ASSESSMENT: Gastrointestinal bleeding. It sounds like he probably had a hard stool and had a tear. The blood was described as bright red, but then it was dark red with clots. He has had some drop in hemoglobin. He has not had a previous colonoscopy. He notes that he has never had bleeding before and he has had difficult to control INRs in the past. He is traveling quite a bit to take his back and forth to [facility] and travels quite a bit to [place]. It would be difficult really for him to get in for outpatient endoscopy in the next few weeks. I think in light of the fact that he is very active and used to be on blood thinners, he probably needs endoscopy to make sure we are not missing something else, although this is likely hemorrhoidal tear bleeding, which seems to be slowing. PLAN: We will hold the Enderilinta. We will make him n.p.o., give him a bowel prep and plan for upper and lower endoscopy tomorrow. Job ID: [id number]
--- NOTE | 2018-08-13 02:33 | CON ---
DATE OF CONSULTATION: 08/11/2018 CONSULTING SERVICE: Family Medicine. REASON FOR CONSULTATION: Scrotal cellulitis. HISTORY OF PRESENT ILLNESS: Mr. Lozada is a 57-year-old white male, who is known to me for a history of a previous hydrocele. The hydrocele was not very bothersome to him previously and the patient will like to follow up with me on a p.r.n. basis and stated that he would notify me, if he had any further problems with this. Approximately a week and a half ago, the patient developed a painful spot in the right side of the scrotum. He used some [id number] hydrocortisone cream, but the area got worse and began to blister with subsequent itching and sores. He started developing fevers and chills and went to his primary care physician and was told that he had cellulitis on his scrotum and was started on Bactrim. The fever improved, but the abdominal pain got worse and developed nausea, fatigue, more difficulty with urination and more burning around the scrotal area. He was having significant swelling around the scrotal area and he stated that it appeared like he had a cantaloupe within his scrotum and ulceration appeared on both sides of the scrotum as well as the inferior aspect of his scrotum and suddenly he had what appeared to be a rupture of a large amount of purulent and foul-smelling fluid from his scrotum, which drained significantly. At this point, he did arrive in the emergency room and was started on clindamycin and given morphine as well as fluids. An ultrasound showed a left-sided large hydrocele, which the patient has had for a long time. He was admitted to the hospital and administered wound care. Vancomycin was administered on top of his clindamycin. I was then consulted for further assistance. On my discussion with the patient, the patient did report that he was having difficulty urinating initially. He now states that he is urinating without much difficulty at the current time and this has improved, although it is not perfect. He is no longer having fevers and the pain in his scrotum has decreased significantly. His scrotum is also significantly less swollen than prior, although he states it is still hurting. ALLERGIES: IODINATED CONTRAST. HOME MEDICATIONS: 1. Digoxin. 2. Nitroglycerin. 3. Symbicort. 4. Losartan. 5. Stiolto respiratory inhaler. 6. Zetia. 7. Lasix. 8. Albuterol. 9. Aspirin. 10. Fluoxetine. 11. Rosuvastatin. 12. Coumadin. 13. Folate. 14. [place]. 15. Brilinta. PAST MEDICAL HISTORY: 1. Prior history of scrotal cellulitis. 2. Hypertension. 3. Hyperlipidemia. 4. Coronary artery disease. 5. Mechanical aortic valve. 6. Piriformis syndrome. 7. Hydrocele. PAST SURGICAL HISTORY: 1. Aortic valve replacement. 2. Three back surgeries. 3. Appendectomy. 4. Left hernia repair. FAMILY HISTORY: Noncontributory. SOCIAL HISTORY: The patient denies tobacco, alcohol, or illicit drug use. He is . REVIEW OF SYSTEMS: A 12-point review of system was reviewed, otherwise negative other than what was commented on the HPI. PHYSICAL EXAMINATION: VITAL SIGNS: Temperature 98, pulse 60, respirations 20, blood pressure 112/68, saturation 95% on room air. GENERAL: No apparent distress, communicating and alert. CARDIOVASCULAR: Regular rate and rhythm. Normal S1, S2. Loud murmur. CHEST: No increased work of breathing, symmetric expansion. LUNGS: Clear anteriorly. ABDOMEN: Soft, nontender, nondistended. Positive bowel sounds. No organomegaly. No hepatosplenomegaly. No rebound, guarding, or peritoneal signs. GENITOURINARY: The patient is uncircumcised. Penis is somewhat retracted secondary to mild edema. Scrotum shows diffuse edema, but significant resolution of previously noted hydrocele. There are ulcerations bilaterally on either side of the scrotum, which appears to be where the hydroceles may have drained from. There is also a healing area of denuded skin on the inferior aspect of the scrotum. There is no crepitus or evidence of Lindsay's gangrene. The cellulitis appears to be resolving significantly. The scrotal wall is not very tender to palpation. Rectal exam is deferred at this time. EXTREMITIES: No clubbing, cyanosis, or edema. SKIN: Warm and dry. No rashes or lesions, other than what was commented on the scrotum. Good turgor. MUSCULOSKELETAL: No joint deformities or joint erythema noted. Full range of motion. NEUROLOGIC: Cranial nerves 2-12 grossly intact. No focal or sensory motor deficits identified. PSYCHIATRIC: Alert and oriented x3. Appropriate mood and affect. LABORATORY EVALUATION: The full set of labs are in the [employer] system, which I have reviewed. Of note, the patient's white count is 10.1 as of August 10, hemoglobin of 14.9, creatinine of 1.46. Urinalysis demonstrates trace blood with 7-10 RBCs. No other findings. Blood cultures are negative x2. Fluid culture from the plain drainage demonstrates methicillin resistant Staph aureus. IMAGING: Scrotal ultrasound from August 10 demonstrates large left complex hydrocele. ASSESSMENT AND PLAN: A 57-year-old white male with a large left complex hydrocele, which has now spontaneously drained. The scrotum appears much more symmetric and normal in size. This in and of itself is the treatment of choice, which is drainage of the infected hydrocele. Since he has accomplished this on his own due to his infection, there is a high probability that the hydrocele was closed down and resulted in complete healing on its own. The main issue at this point is reaccumulation of fluid. I would recommend the patient wear a tight jockstrap to prevent reaccumulation of fluid and close any potential space within the scrotum. If this is maintained long enough, the previously documented hydrocele should scar down and prevent any fluid reaccumulation in the future. I would recommend a 7-10 day course of antibiotics that he can take by mouth for his MRSA to ensure complete treatment of his cellulitis. I can follow up with the patient on an outpatient basis to ensure proper wound healing. No recurrence of hydrocele and addressing any urinary symptoms that he may continue to have. I will continue to follow along on this patient's admission. Job ID: [id number]
[2018-08-13] MEDS: Ibuprofen 800 MG TAB PO SCH ×2 (05:09→14:52)
[2018-08-13] MEDS: Clindamycin 150 MG CAP PO SCH ×3 (05:09→17:22)
[2018-08-13 06:19] LABS: INR-International Normal Ratio 2.5; PTT 47.8 SEC (22.9-36.1)
--- NOTE | 2018-08-13 06:47 | PDOC.FM ---
- Subjective Subjective: Stuart Lozada seen at bedside this morning. He completed his bowel prep overnight and he has had multiple nonbloody bowel movements overnight and this morning. She is scheduled for upper and lower endoscopy this morning with Dr. Ybarra. He denies any fever, chills, chest pain, dyspnea, n/v. - Objective MAR Reviewed: Yes Vital Signs & Weight: Vital Signs (12 hours) Temp Pulse Resp BP Pulse Ox 08/12/18 20:00 98.1 F 68 18 125/74 98 08/12/18 19:18 74 16 94 L Weight Admit Weight 97.976 kg Weight 97.976 kg I&O: 08/11/18 08/12/18 08/13/18 06:59 06:59 06:59 Intake Total 2049 1260 2418 Output Total 900 Balance 2049 1260 1518 Result Diagrams: 08/12/18 08:06 08/12/18 08:06 Phys Exam - Physical Examination Constitutional: NAD HEENT: moist MMs, sclera anicteric Neck: supple, full ROM Respiratory: no wheezing, no rales, no rhonchi, clear to auscultation bilateral Cardiovascular: RRR, no significant murmur Gastrointestinal: soft, no distention Musculoskeletal: no edema, pulses present Neurological: non-focal, normal sensation, moves all 4 limbs Psychiatric: normal affect, A&O x 3 Deviation from normal: healing wounds to b/l scrotum Dx/Plan (1) Acute GI bleeding Code(s): K92.2 - GASTROINTESTINAL HEMORRHAGE, UNSPECIFIED Status: Acute (2) Cellulitis of scrotum Code(s): N49.2 - INFLAMMATORY DISORDERS OF SCROTUM Status: Acute (3) ELANA (acute kidney injury) Code(s): N17.9 - ACUTE KIDNEY FAILURE, UNSPECIFIED Status: Acute (4) CAD (coronary artery disease) Code(s): I25.10 - ATHSCL HEART DISEASE OF [place] CORONARY ARTERY W/O ANG PCTRS Status: Chronic (5) HLD (hyperlipidemia) Code(s): E78.5 - HYPERLIPIDEMIA, UNSPECIFIED Status: Chronic (6) Hydrocele in adult Code(s): N43.3 - HYDROCELE, UNSPECIFIED Status: Chronic (7) Systolic and diastolic CHF, chronic Code(s): I50.42 - CHRONIC COMBINED SYSTOLIC AND DIASTOLIC HRT FAIL Status: Chronic - Plan Plan: Acute GI bleed -one episode of painless, large bloody BM, passing BRBPR and large dark clots -INR elevated yesterday at 4.1 and coumadin was held, this morning, INR is 3.0 -pt has never had colonoscopy -consulted Dr. Ybarra on 08/12, GI, appreciate recs -Scheduled for upper and lower endoscope today with Dr. Ybarra -started IV pantoprazole on 08/12 Scrotal cellulitis -VSS. Was on outpatient bactrim and fever improved, however pain/sores worsening. -no s/s of prostatitis -s/p cleocin in ED and 1 L NS. -US showed only L hydrocele; CT abdomen (w/o contrast) negative, showed only LLL nodule -Vancomycin IV from 08/10-, po clindamycin started on 08/12 -Culture of wound grew Staph aureus, sensitive to clinda and bactrim -Wound care consulted -HIV/RPR screen negative -Urology consulted for left complex hydrocele, agreed with current regimen -recommended jock strap at discharge to prevent accumulation of fluid Brief Urinary retention -Monitor strict I/Os for return of urinary retention ELANA -will continue to monitor -On mIVFs Mixed HFpEF/HFrEF -Echo 04/03: 35-40% EF -On digoxin -On mIVF, monitor for s/s of fluid overload -daily weights Elevated troponin -Likely chronic from demand ischemia -Will trend second troponin HTN -resume home meds HLD/CAD -resume home meds Hx Mechanical AV valve -continue home coumadin -monitor INRs -INR 08/11 was 4.1, repeat on 08/12 was 3.0. -coumadin has been held due to GI bleeding Chronic Hydrocele -seen on US. Addendum - Attending - Attending Attestation Date/Time: 08/13/18 3650 I personally evaluated the patient and discussed the management with Dr. Ghosh I agree with the History, Examination, Assessment and Plan documented above with any addition or exceptions noted below. For endoscopy today appreciate GI and Urology recommendations.
[2018-08-13] MEDS: Mometasone/Formoterol 120 PUFF INHALER INH SCH (07:25)
[2018-08-13] MEDS: Pantoprazole 40 MG VIAL IVP SCH (08:27)
[2018-08-13] MEDS: Furosemide 40 MG TAB PO SCH (08:33)
[2018-08-13] MEDS: Senokot S 8.6-50 MG TAB PO SCH (08:34)
[2018-08-13] MEDS: Polyethylene Glycol 3350 17 GM Packet PO SCH (08:34)
[2018-08-13] MEDS ORDERED: Sodium Chloride 0.9% (PF) 10 ML VIAL IV SCH (09:00)
[2018-08-13 11:42] VITALS: BP 117/77
[2018-08-13] MEDS ORDERED: Midazolam HCl 2 mg/2 ml Vial ONE (14:12)
[2018-08-13] MEDS ORDERED: Meperidine HCl/PF 25 MG/ML VIAL SLOW IVP PRN (15:20)
[2018-08-13] MEDS ORDERED: Promethazine HCl 25 MG/ML VIAL SLOW IVP PRN (15:20)
[2018-08-13] MEDS ORDERED: Ondansetron HCl/PF 4 MG/2 ML Vial IVP PRN (15:20)
[2018-08-13] MEDS: Digoxin 0.125 MG TAB PO SCH (17:23)
[2018-08-13] MEDS: Losartan 25 MG TAB PO SCH (17:24)
[2018-08-13] MEDS: FLUoxetine HCl 10 MG CAP PO SCH (17:24)
--- NOTE | 2018-08-13 21:08 | OP ---
DATE OF PROCEDURE: 08/13/2018 PROCEDURES PERFORMED: 1. Esophagogastroduodenoscopy. 2. Colonoscopy with snare polypectomy. PREPROCEDURE DIAGNOSES: 1. GI hemorrhage. 2. Anemia in the setting of chronic anticoagulation. POSTPROCEDURE DIAGNOSES: 1. Normal upper endoscopy. 2. Large 2 cm pedunculated rectosigmoid polyp, removed. 3. Severe diverticulosis coli. 4. Grade 1 internal hemorrhoids. DESCRIPTION OF PROCEDURE: Written consents were obtained prior to procedure. After adequate sedation, forward viewing endoscope was advanced down the stomach under direct vision to the second portion of duodenum. The duodenum and the bulb appeared normal. The pylorus was patent. The gastric antrum, body, fundus, and cardia all appeared normal. The GE junction was noted at 45 cm. The esophagus appeared normal. The patient was then repositioned for colon exam. Rectal exam performed was normal. The endoscope was advanced to the cecum. The quality of the bowel prep was good. The cecum, ascending colon, hepatic flexure, transverse colon, splenic flexure, descending colon appeared normal. Numerous diverticula were noted in the sigmoid colon. In the rectosigmoid colon, a large 2 cm pedunculated polyp was noted. 4 mL of epinephrine solution 1:10,000 dilution was injected into the stalk and around the base. There was good constriction of the polyp. A hot snare polypectomy was then performed at the base with removal of the polyp without any bleeding. A Hemoclip was then used to approximate the polypectomy site enclosed. The polyp was retrieved. Retroflexion in the rectum showed grade 1 internal hemorrhoids. ASSESSMENT: 1. Normal upper endoscopy. 2. Large rectosigmoid polyp removed, likely source of his rectal bleeding. 3. Internal hemorrhoids, grade 1. RECOMMENDATION: 1. Fiber rich diet. 2. Await biopsy results of the polyp. 3. The patient can be discharged to home on Coumadin with close outpatient monitoring of his INR. Job ID: [id number]
--- NOTE | 2018-08-14 14:40 | DIS ---
DATE OF ADMISSION: 08/12/2018 DATE OF DISCHARGE: 08/13/2018 RESIDENT: Esvin Ghosh MD ADMITTING ATTENDING: Arden White MD DISCHARGE ATTENDING: Arden White MD CONSULTS: 1. GI, Dr. Ybarra, on 08/12/2018. 2. , Dr. Bell, on 08/11/2018. PROCEDURES PERFORMED: 1. CT abdomen and pelvis on 08/10/2018, impression; no urolithiasis or obstructive uropathy. Incidental reticulonodular densities in the left lung base. This could relate atelectasis and/or pneumonitis. Recommend 6 to [address] thorax with contrast to confirm resolution of left lung base nodule. 2. Testicular ultrasound on 08/10/2018, impression; large left complex hydrocele. 3. EGD and colonoscopy on 08/13/2018. ASSESSMENT: Normal upper endoscopy. Large rectosigmoid polyp removed, likely source of his rectal bleeding. Internal hemorrhoids, grade 1. Biopsy taken. Biopsy results show pedunculated tubulovillous adenoma. Polyp appears to be completely excised. There was no high-grade dysplasia or malignancy present. PRIMARY DIAGNOSES: 1. Cellulitis of the scrotum. 2. Acute gastrointestinal bleeding. SECONDARY DIAGNOSES: 1. Supratherapeutic INR. 2. Hypertension. 3. Systolic and diastolic congestive heart failure, chronic. 4. Hyperlipidemia. 5. Coronary artery disease. DISCHARGE MEDICATIONS: Resume home medications includin. Digoxin 125 mcg p.o. daily. 2. Nitroglycerin 0.4 mg sublingual as directed p.r.n. 3. Symbicort 160-4.5, 2 puffs INH b.i.d. 4. Stiolto Respimat inhaler two puffs inhaled daily. 5. Losartan 25 mg p.o. daily. 6. Ezetimibe 5 mg p.o. daily. 7. Furosemide 40 mg p.o. b.i.d. 8. Albuterol sulfate one puff p.r.n. 9. Warfarin 5 mg p.o. daily. 10. Rosuvastatin calcium 5 mg p.o. at bedtime. 11. Fluoxetine 10 mg p.o. daily. 12. Aspirin 81 mg p.o. daily. 13. Folic acid one tab p.o. daily. 14. Gray 10/325 one tab p.o. p.r.n. 15. Brilinta 90 mg one tab p.o. b.i.d. New home medications include: 1. Clindamycin 300 mg p.o. q.6 hours for 5 days. 2. Pantoprazole 40 mg p.o. daily. HISTORY OF PRESENT ILLNESS/HOSPITAL COURSE: Stuart Lozada is a 57-year-old male with past medical history of mechanical aortic valve on chronic Coumadin therapy, hypertension, CAD, who presented with scrotal pain and difficulty urinating. The patient reported he developed a painful spot on the right side of the scrotum 8 days prior to admission. He applied hydrocortisone on the spot because it was itching and developed a larger rash over the area. States he then developed sores underneath his scrotum on the left side. Three days prior to admission, he developed fever and chills, went to his PCP, diagnosed with cellulitis and started on Bactrim. His fever resolved. However, he still complained that he still had abdominal pain, nausea, and fatigue. He was also having difficulty urinating and having to push but was unable to urinate, however, that had resolved upon admission. He was able to urinate in the hospital. He complained of constant left-sided throbbing abdominal pain associated with scrotal pain. In the ED, he received clindamycin, Zofran, morphine, 1 L normal saline. Ultrasound of the scrotum showed large left-sided varicocele, which patient states he has had for a long time. He has seen Urology in the past. CT of the chest showed incidental lower lung left lobe nodule recommended in 6 to [address] PHYSICAL EXAMINATION: VITAL SIGNS: Upon admission, his blood pressure 115/76, heart rate 66, respiratory rate 16, temperature 98, pulse ox 99% on room air. LABORATORY DATA: Labs on admission, white blood cell count 10.1, hemoglobin 14.9, hematocrit 45.4, platelets 276. Sodium 137, potassium 4.5, chloride 106, bicarb 26, BUN 18, creatinine 1.46, and glucose of 92. UA was unremarkable. The patient was admitted for scrotal cellulitis. He was started on vancomycin IV in the hospital. Wound cultures were drawn, which grew methicillin-resistant Staph aureus sensitive to clindamycin, doxycycline, gentamicin, linezolid, Bactrim and vancomycin. Wound Care was consulted to manage patient's wounds. The patient showed significant improvement while on vancomycin and he was eventually transitioned to oral clindamycin. While in the hospital, the patient's INR trended up to 4.1. That evening, he developed acute GI bleeding, had a large bright red bloody bowel movement and also passed several dark red clots. His nighttime dose of Coumadin was held and GI was consulted as patient never had a colonoscopy. GI saw the patient and then performed upper and lower endoscopy, and found a large pedunculated polyp in the rectosigmoid colon. This was snare biopsied and results came back as no signs of malignancy. GI thought that this was likely the cause of his bleed. They recommended him restarting his Coumadin upon discharge and recommended the patient to go home with close outpatient monitoring of his INR and also recommended a fiber rich diet. Dr. Bell was also courtesy consulted to see the patient as he has seen him in the outpatient for his complex hydrocele. Dr. Bell assessed that the complex hydrocele likely drained from wounds, which was the treatment for his infected hydrocele, stated that there was a high probability of hydrocele, it was closed down and will completely heal on its own. Stated that the main issue at this point was reaccumulation of fluid. I recommended that he wear tight jockstrap to prevent any reaccumulation of fluid in potential space within the scrotum. He also recommended completing a 7 to 10-day course of antibiotics for his MRSA infection. The patient was instructed to follow up with Dr. Bell as an outpatient. The patient was cleared for discharge on 08/13/2018 with instructions to follow up with primary care provider. Follow up with GI and follow up with Dr. Bell with Urology. DISCHARGE DISPOSITION: Stable. The patient should do well if he continues to monitor his INR closely, follows up with primary care provider and follows up with Urology and GI. DISCHARGE INSTRUCTIONS: 1. Location: Home. 2. Diet: Heart healthy and Coumadin diet. 3. Activity: As tolerated. 4. Followup: Follow up with primary care provider, Urology, and GI. Job ID: [id number]
== END 2018-08-13 18:23 | disposition home or self-care (01) | DRG 727 ==
LOC: ERS 14:49 → T4-A 18:22 → OBSVTOIN 08-12 13:29
PROVIDERS: ADMIT Family Medicine; ATTEND Family Medicine
PROC: 0DJ08ZZ Inspection of Upper Intestinal Tract, Via Natural or Artificial Opening Endoscopic (ICD-10-PCS; principal; 2018-08-13)
PROC: 0DBN8ZZ Excision of Sigmoid Colon, Via Natural or Artificial Opening Endoscopic (ICD-10-PCS; 2018-08-13)
DX: N49.2 Inflammatory disorders of scrotum (principal); K57.31 Diverticulosis of large intestine without perforation or abscess with bleeding; I50.42 Chronic combined systolic (congestive) and diastolic (congestive) heart failure; N17.9 Acute kidney failure, unspecified; I24.8 Other forms of acute ischemic heart disease; I25.10 Atherosclerotic heart disease of native coronary artery without angina pectoris; E78.5 Hyperlipidemia, unspecified; I11.0 Hypertensive heart disease with heart failure; R33.9 Retention of urine, unspecified; N43.3 Hydrocele, unspecified; R91.1 Solitary pulmonary nodule; G47.00 Insomnia, unspecified; J44.9 Chronic obstructive pulmonary disease, unspecified; B95.61 Methicillin susceptible Staphylococcus aureus infection as the cause of diseases classified elsewhere; D64.9 Anemia, unspecified; K63.5 Polyp of colon; Z16.29 Resistance to other single specified antibiotic; K64.0 First degree hemorrhoids; Z79.899 Other long term (current) drug therapy; Z91.041 Radiographic dye allergy status; Z79.82 Long term (current) use of aspirin; Z79.01 Long term (current) use of anticoagulants; Z95.2 Presence of prosthetic heart valve
CPT/HCPCS: 36415; 74176; 76870; 80048; 80053; 80162; 80202; 81003; 81015; 82553; 83605; 84484; 85014; 85018; 85025; 85049; 85610; 85730; 86780; 87040; 87070; 87077; 87186; 87205; 87389; 87491; 87591; 88305; 94664; 96365; 96375; C9113; J2250; J2270; J2405; J3370; J3490; J7050

== ENCOUNTER 2019-07-31 07:03 | Outpatient (CLI) | payer BC, MEDICARE, OTHER ==
[2019-07-31 11:32] VITALS: BMI 27.5
--- NOTE | 2019-07-31 12:42 | RAD ---
CHEST 1 VIEW: Date: 07/31/2019 HISTORY: Pre cardiac catheterization. COMPARISON: 05/06/2018. FINDINGS: There are changes of median sternotomy and aortic valve replacement. The heart size is normal. The lungs are expanded without focal areas of consolidation, pneumothoraces , or pleural effusions. There is mild scarring in the left lower lung. IMPRESSION: No acute process. POS: C
[2019-07-31 13:01] LABS: #Eosinphils 0.3 thou/uL (0.0-0.7); #Lymphocytes 1.3 thou/uL (1.20-3.40); #Monocytes 0.9 thou/uL (0.11-0.59); #Neutrophils 5.3 thou/uL (1.40-6.50); %Basophils 0.6 % (0.0-1.0); %Eosinophils 4.4 % (0.0-10.0); %Lymphocytes 16.9 % (21.0-51.0); %Neutrophils 67.2 % (42.0-75.0); Mean Corpuscular HGB CONC 32.1 g/dL (32.0-36.0); Mean Corpuscular Hemoglobin 30.6 pg (27.0-31.0); Mean Corpuscular Volume 95.3 fL (78.0-98.0); Platelet Count 212 thou/uL (130-400); RBC Distribution Width 12.8 % (11.5-14.5); Red Blood Cell (RBC) Count 4.92 mill/uL (4.70-6.10); White Blood Cell (WBC) Count 7.8 thou/uL (4.8-10.8)
[2019-07-31 13:24] LABS: ALT (SGPT) 14 U/L (8-55); AST (SGOT) 19 U/L (5-34); Albumin 4.1 g/dL (3.5-5.0); Alkaline Phosphatase 97 U/L (40-110); Anion Gap 11 mmol/L (10-20); BUN (Urea Nitrogen) 16 mg/dL (8.4-25.7); Bilirubin, Total 0.4 mg/dL (0.2-1.2); Calc. Creatinine Clearance 91 mL/min (70-130); Calcium 9.4 mg/dL (7.8-10.44); Carbon Dioxide 27 mmol/L (22-29); Cardiac Risk 3.6 (Less than 4.5); Chloride 107 mmol/L (98-107); Cholesterol 114 mg/dl (< 200 Desired); Estimated GFR-MDRD 60; Globulin 3.3 g/dL (2.4-3.5); Glucose 99 mg/dL (70-105); HDL Cholesterol 32 mg/dL (>60 Neg Risk); LDL Cholesterol, Calculated 68 mg/dL; Potassium 4.1 mmol/L (3.5-5.1); Protein, Total 7.4 g/dL (6.0-8.3); Sodium 141 mmol/L (136-145); Triglycerides 69 mg/dL (Less than 150)
[2019-07-31 19:40] LABS: SARS-CoV-2 MS2 Positive; SARS-CoV-2 N Gene Negative; SARS-CoV-2 S Gene Negative; SARS-CoV-2 orf1ab Negative
--- NOTE | 2019-08-07 23:27 | EKG ---
Test Reason : Blood Pressure : / mmHG Vent. Rate : 060 BPM Atrial Rate : 060 BPM P-R Int : 186 ms QRS Dur : 140 ms QT Int : 414 ms P-R-T Axes : -23 -39 075 degrees QTc Int : 414 ms Normal sinus rhythm Left axis deviation Non-specific intra-ventricular conduction block Inferior infarct , age undetermined Cannot rule out Anterior infarct , age undetermined Abnormal ECG When compared with ECG of 08-MAY-2018 08:59, Premature ventricular complexes are no longer Present Inverted T waves have replaced nonspecific T wave abnormality in Lateral leads Confirmed by Sanjeev VIDAL ([id number]) on 08/07/2019 11:26:47 PM Referred By: YULIA Confirmed By:Sanjeev VIDAL
== END 2019-07-31 07:04 | disposition home or self-care (01) ==
LOC: LABBT 07:03
PROVIDERS: ATTEND Internal Medicine Cardiovascular Disease
DX: Z01.818 Encounter for other preprocedural examination (principal); Z11.59 Encounter for screening for other viral diseases; R93.89 Abnormal findings on diagnostic imaging of other specified body structures
CPT/HCPCS: 71045; 80053; 80061; 85025; 87635; 93005; 93010; U0003

== ENCOUNTER 2019-08-04 06:05 | Day surgery (SDC) | payer BC, MEDICARE ==
[2019-08-04] MEDS ORDERED: Heparin 10,000 UNITS/1 ML VIAL ONE (06:33)
[2019-08-04 06:50] LABS: INR-International Normal Ratio 1.1; Prothrombin Time 14.3 sec (12.0-14.7)
[2019-08-04] MEDS ORDERED: Protamine Sulfate 50 MG/5 ML VIAL ONE (07:06)
[2019-08-04] MEDS ORDERED: Fentanyl 100 MCG/2 ML VIAL ONE (07:13)
[2019-08-04] MEDS ORDERED: Midazolam HCl 2 mg/2 ml Vial ONE (07:13)
[2019-08-04] MEDS ORDERED: Bivalirudin 250 MG VIAL ONE (07:31)
[2019-08-04] MEDS ORDERED: Clopidogrel Bisulfate 300 MG TAB ONE (07:50)
[2019-08-04] MEDS ORDERED: Iopamidol 370 76% 100 ML VIAL ONE ×2 (09:19→09:20)
[2019-08-04] MEDS ORDERED: Acetaminophen/Codeine 30-300mg Tablet ONE (15:44)
[2019-08-04] MEDS ORDERED: Acetaminophen/Codeine 30-300mg Tablet PO SCH (16:00)
== END 2019-08-04 17:52 | disposition home or self-care (01) ==
LOC: CCL 06:05
PROVIDERS: ATTEND Internal Medicine Cardiovascular Disease
PROC: B2011ZZ Plain Radiography of Multiple Coronary Arteries using Low Osmolar Contrast (ICD-10-PCS; principal; 2019-08-04)
PROC: 4A023N7 Measurement of Cardiac Sampling and Pressure, Left Heart, Percutaneous Approach (ICD-10-PCS; principal; 2019-08-04)
DX: I25.10 Atherosclerotic heart disease of native coronary artery without angina pectoris (principal); I11.0 Hypertensive heart disease with heart failure; I50.9 Heart failure, unspecified; J44.9 Chronic obstructive pulmonary disease, unspecified; I48.0 Paroxysmal atrial fibrillation; I42.8 Other cardiomyopathies; I48.92 Unspecified atrial flutter; E78.00 Pure hypercholesterolemia, unspecified; Z79.01 Long term (current) use of anticoagulants; Z79.82 Long term (current) use of aspirin; Z79.899 Other long term (current) drug therapy; Z87.891 Personal history of nicotine dependence; Z91.041 Radiographic dye allergy status; Z91.048 Other nonmedicinal substance allergy status; Z95.1 Presence of aortocoronary bypass graft; Z95.2 Presence of prosthetic heart valve; Z95.5 Presence of coronary angioplasty implant and graft
CPT/HCPCS: 36415; 85347; 85610; 92928; 93005; 93010; 93454; 93798; 99152; 99153; C1769; C1874; C1887; C9600; J0583; J1644; J2250; J2720; J3010; Q9967

== ENCOUNTER 2020-06-25 19:48 | Inpatient (IN) | payer BC, MEDICARE ==
[2020-06-25] MEDS ORDERED: Aspirin Chewable 81 MG TAB ONE (19:58)
[2020-06-25] MEDS ORDERED: Heparin 10,000 UNITS/ 10 ML VIAL ONE (19:58)
[2020-06-25 20:09] LABS: #Eosinphils 0.2 thou/uL (0.0-0.7); #Lymphocytes 1.7 thou/uL (1.20-3.40); #Monocytes 0.7 thou/uL (0.11-0.59); #Neutrophils 8.7 thou/uL (1.40-6.50); %Basophils 0.2 % (0.0-1.0); %Eosinophils 1.5 % (0.0-10.0); %Lymphocytes 14.8 % (21.0-51.0); %Monocytes 6.2 % (0.0-10.0); %Neutrophils 77.3 % (42.0-75.0); Hemoglobin 15.1 g/dL (14.0-18.0); Mean Corpuscular HGB CONC 32.8 g/dL (32.0-36.0); Mean Corpuscular Hemoglobin 31.1 pg (27.0-31.0); Mean Platelet Volume 8.4 fL (7.4-10.4); Platelet Count 257 thou/uL (130-400); RBC Distribution Width 12.4 % (11.5-14.5); Red Blood Cell (RBC) Count 4.87 mill/uL (4.70-6.10); White Blood Cell (WBC) Count 11.3 thou/uL (4.8-10.8)
[2020-06-25] MEDS ORDERED: Lidocaine 1% (PF) 30 ML VIAL ONE (20:13)
[2020-06-25 20:18] LABS: Prothrombin Time 31.6 sec (12.0-14.7)
[2020-06-25 20:32] LABS: ALT (SGPT) 13 U/L (8-55); AST (SGOT) 29 U/L (5-34); Albumin 4.1 g/dL (3.5-5.0); Alkaline Phosphatase 91 U/L (40-110); Anion Gap 20 mmol/L (10-20); BUN (Urea Nitrogen) 15 mg/dL (8.4-25.7); Bilirubin, Total 0.8 mg/dL (0.2-1.2); Calc. Creatinine Clearance 0 mL/min (70-130); Calcium 9.1 mg/dL (7.8-10.44); Carbon Dioxide 17 mmol/L (22-29); Chloride 109 mmol/L (98-107); Globulin 2.7 g/dL (2.4-3.5); Glucose 136 mg/dL (70-105); Potassium 3.8 mmol/L (3.5-5.1); Protein, Total 6.8 g/dL (6.0-8.3); Sodium 142 mmol/L (136-145)
[2020-06-25 21:02] LABS: CKMB 11.9 ng/mL (0-6.6)
[2020-06-25 21:30] LABS: SARS-CoV-2 NAA Rapid Test Not Detected (NotDetected)
[2020-06-25] MEDS ORDERED: Heparin 25,000 units/D5W 500 ML IVPB SCH (21:30)
[2020-06-25] MEDS ORDERED: Heparin 10,000 UNITS/ 10 ML VIAL SLOW IVP SCH (21:30)
[2020-06-25 21:36] LABS: Hemoglobin 14.8 g/dL (14.0-18.0); Platelet Count 222 thou/uL (130-400)
[2020-06-25] MEDS ORDERED: Acetaminophen 325 MG TAB PO PRN (21:46)
[2020-06-25] MEDS ORDERED: Nitroglycerin 0.4 MG TAB (25 Tab Bottle) SL PRN (21:46)
[2020-06-25] MEDS ORDERED: Lactated Ringer's 1,000 ML IV SCH (22:00)
[2020-06-25] MEDS ORDERED: predniSONE 50 MG TAB PO SCH (22:15)
[2020-06-25 22:22] LABS: Troponin I 2.542 ng/mL (< 0.028)
[2020-06-25] MEDS ORDERED: Albuterol 200 PUFF (6.7GM INHALER) INH PRN (22:31)
[2020-06-25 22:45] VITALS: BMI 25.6
[2020-06-25 23:27] LABS: Magnesium 2.8 mg/dL (1.6-2.6)
[2020-06-25 23:32] LABS: Phosphorus 1.4 mg/dL (2.3-4.7)
[2020-06-25] MEDS ORDERED: Potassium Phosphate 9 MMOL in Sodium Chloride 0.9% 100 ML IVPB SCH (23:59)
[2020-06-26] MEDS: Amiodarone 450 MG in Dextrose 5% in Water 250 ML IVPB SCH ×2 (01:05→12:40)
[2020-06-26 03:57] LABS: Anion Gap 14 mmol/L (10-20); BUN (Urea Nitrogen) 16 mg/dL (8.4-25.7); Calc. Creatinine Clearance 81 mL/min (70-130); Carbon Dioxide 19 mmol/L (22-29); Chloride 109 mmol/L (98-107); Potassium 4.4 mmol/L (3.5-5.1); Sodium 138 mmol/L (136-145)
[2020-06-26 03:58] LABS: Calcium 8.8 mg/dL (7.8-10.44); Cardiac Risk 3.9 (Less than 4.5); Cholesterol 110 mg/dl (< 200 Desired); Glucose 124 mg/dL (70-105); HDL Cholesterol 28 mg/dL (>60 Neg Risk); LDL Cholesterol, Calculated 66 mg/dL; Magnesium 2.7 mg/dL (1.6-2.6); Triglycerides 82 mg/dL (Less than 150)
[2020-06-26 03:59] LABS: Phosphorus 2.6 mg/dL (2.3-4.7)
[2020-06-26 04:00] LABS: Band 2 % (5-11); Hemoglobin 13.8 g/dL (14.0-18.0); Lymphocytes 4 % (21-51); MDiff Complete? YES; Mean Corpuscular HGB CONC 31.8 g/dL (32.0-36.0); Mean Corpuscular Hemoglobin 29.9 pg (27.0-31.0); Mean Corpuscular Volume 94.1 fL (78.0-98.0); Mean Platelet Volume 8.5 fL (7.4-10.4); Neutrophil 88 % (42-75); Platelet Count 206 thou/uL (130-400); Platelet Morphology Comment Appears Adequate; RBC Distribution Width 12.1 % (11.5-14.5); RBC Morphology Normal; Reactive Lymphocytes 6 % (0-10); White Blood Cell (WBC) Count 8.9 thou/uL (4.8-10.8)
[2020-06-26 05:20] LABS: Troponin I 14.414 ng/mL (< 0.028)
[2020-06-26] MEDS: Mometasone 200 MCG/Formoterol 5 MCG 120 PUFF INHALER INH SCH ×2 (07:40→19:26)
[2020-06-26] MEDS: Aspirin 81 mg Enteric Coated Tablet PO SCH ×2 (09:00→13:00)
[2020-06-26] MEDS: FLUoxetine HCl 10 MG CAP PO SCH ×2 (09:00→13:02)
[2020-06-26] MEDS: Digoxin 0.125 MG TAB PO SCH ×2 (09:00→12:58)
[2020-06-26] MEDS: Furosemide 40 MG TAB PO SCH ×2 (09:00→13:01)
[2020-06-26] MEDS: Ezetimibe 10 MG TAB PO SCH ×2 (09:00→12:58)
[2020-06-26] MEDS: Folic Acid 1 MG TAB PO SCH ×2 (09:00→13:00)
[2020-06-26] MEDS: predniSONE 50 MG TAB PO SCH ×2 (09:00→21:37)
[2020-06-26] MEDS: Clopidogrel Bisulfate 75 MG TAB PO SCH ×2 (09:00→12:58)
[2020-06-26 11:48] LABS: INR-International Normal Ratio 3.2; Prothrombin Time 33.4 sec (12.0-14.7)
[2020-06-26 11:49] LABS: PTT 108.8 sec (22.9-36.1)
[2020-06-26] MEDS ORDERED: Phytonadione 10 MG/ML AMP PO SCH (20:15)
[2020-06-26] MEDS ORDERED: Communication Order-Pharmacy FS SCH (20:30)
[2020-06-26 20:35] LABS: Prothrombin Time 35.9 sec (12.0-14.7)
[2020-06-26 20:36] LABS: INR-International Normal Ratio 3.5
[2020-06-26] MEDS: Furosemide 20 MG TAB PO SCH (20:44)
[2020-06-26] MEDS: Rosuvastatin 10 MG TAB PO SCH (20:44)
[2020-06-27] MEDS ORDERED: Sodium Chloride 0.9% 250 ML IV SCH (00:01)
[2020-06-27] MEDS: Amiodarone 450 MG in Dextrose 5% in Water 250 ML IVPB SCH ×2 (01:25→20:27)
[2020-06-27 04:52] LABS: INR-International Normal Ratio 2.4; Prothrombin Time 26.7 sec (12.0-14.7)
[2020-06-27 04:53] LABS: PTT 41.6 sec (22.9-36.1)
[2020-06-27 05:06] LABS: Phosphorus 2.2 mg/dL (2.3-4.7)
[2020-06-27 05:07] LABS: Anion Gap 13 mmol/L (10-20); BUN (Urea Nitrogen) 21 mg/dL (8.4-25.7); Calc. Creatinine Clearance 73 mL/min (70-130); Calcium 8.7 mg/dL (7.8-10.44); Carbon Dioxide 20 mmol/L (22-29); Chloride 109 mmol/L (98-107); Glucose 137 mg/dL (70-105); Magnesium 2.3 mg/dL (1.6-2.6); Potassium 4.1 mmol/L (3.5-5.1); Sodium 138 mmol/L (136-145)
[2020-06-27 05:12] LABS: Hemoglobin 13.5 g/dL (14.0-18.0); Mean Corpuscular HGB CONC 31.9 g/dL (32.0-36.0); Mean Corpuscular Hemoglobin 30.2 pg (27.0-31.0); Mean Corpuscular Volume 94.6 fL (78.0-98.0); Mean Platelet Volume 9.1 fL (7.4-10.4); Platelet Count 199 thou/uL (130-400); RBC Distribution Width 12.3 % (11.5-14.5); Red Blood Cell (RBC) Count 4.47 mill/uL (4.70-6.10)
[2020-06-27 05:23] LABS: Band 1 % (5-11); Lymphocytes 9 % (21-51); MDiff Complete? YES; Monocytes 2 % (0-10); Neutrophil 88 % (42-75); Platelet Morphology Comment Appears Adequate
[2020-06-27] MEDS: Mometasone 200 MCG/Formoterol 5 MCG 120 PUFF INHALER INH SCH ×2 (08:07→18:20)
[2020-06-27] MEDS: Ezetimibe 10 MG TAB PO SCH (10:09)
[2020-06-27] MEDS: Digoxin 0.125 MG TAB PO SCH (10:09)
[2020-06-27] MEDS: predniSONE 50 MG TAB PO SCH ×2 (10:10→21:16)
[2020-06-27] MEDS: Furosemide 40 MG TAB PO SCH (10:10)
[2020-06-27] MEDS: Aspirin 81 mg Enteric Coated Tablet PO SCH (10:10)
[2020-06-27] MEDS: Clopidogrel Bisulfate 75 MG TAB PO SCH (10:10)
[2020-06-27] MEDS: FLUoxetine HCl 10 MG CAP PO SCH (10:11)
[2020-06-27] MEDS: Folic Acid 1 MG TAB PO SCH (10:11)
[2020-06-27] MEDS: PHOS-NAK 1 PKT PACK PO SCH ×2 (15:29→18:29)
[2020-06-27] MEDS ORDERED: Communication Order-Pharmacy FS SCH (17:00)
[2020-06-27] MEDS: diphenhydrAMINE 50 MG CAP PO SCH (18:29)
[2020-06-27] MEDS: Famotidine 20 MG TAB PO SCH (21:15)
[2020-06-27] MEDS: Rosuvastatin 10 MG TAB PO SCH (21:16)
[2020-06-27] MEDS: Furosemide 20 MG TAB PO SCH (21:16)
[2020-06-27 21:50] LABS: Hemoglobin 13.8 g/dL (14.0-18.0); Platelet Count 217 thou/uL (130-400)
[2020-06-28] MEDS: diphenhydrAMINE 50 MG CAP PO SCH ×5 (00:10→23:45)
[2020-06-28 03:52] LABS: INR-International Normal Ratio 1.1; Prothrombin Time 14.8 sec (12.0-14.7)
[2020-06-28 04:07] LABS: Band 2 % (5-11); Hemoglobin 14.1 g/dL (14.0-18.0); Lymphocytes 2 % (21-51); MDiff Complete? YES; Mean Corpuscular HGB CONC 33.4 g/dL (32.0-36.0); Mean Corpuscular Hemoglobin 31.7 pg (27.0-31.0); Mean Corpuscular Volume 94.7 fL (78.0-98.0); Mean Platelet Volume 8.8 fL (7.4-10.4); Monocytes 14 % (0-10); Neutrophil 82 % (42-75); Platelet Count 185 thou/uL (130-400); Platelet Morphology Comment Appears Adequate; RBC Distribution Width 12.4 % (11.5-14.5); RBC Morphology Normal; Red Blood Cell (RBC) Count 4.46 mill/uL (4.70-6.10); White Blood Cell (WBC) Count 13.4 thou/uL (4.8-10.8)
[2020-06-28 04:08] LABS: Anion Gap 10 mmol/L (10-20); BUN (Urea Nitrogen) 22 mg/dL (8.4-25.7); Calc. Creatinine Clearance 81 mL/min (70-130); Calcium 9.4 mg/dL (7.8-10.44); Carbon Dioxide 25 mmol/L (22-29); Chloride 107 mmol/L (98-107); Glucose 150 mg/dL (70-105); Phosphorus 2.5 mg/dL (2.3-4.7); Potassium 4.1 mmol/L (3.5-5.1); Sodium 138 mmol/L (136-145)
[2020-06-28] MEDS: Mometasone 200 MCG/Formoterol 5 MCG 120 PUFF INHALER INH SCH ×2 (06:45→19:21)
[2020-06-28] MEDS ORDERED: Amiodarone 200 MG TAB PO SCH (10:30)
[2020-06-28] MEDS: Aspirin 81 mg Enteric Coated Tablet PO SCH (10:31)
[2020-06-28] MEDS: Ezetimibe 10 MG TAB PO SCH (10:32)
[2020-06-28] MEDS: Digoxin 0.125 MG TAB PO SCH (10:32)
[2020-06-28] MEDS: Famotidine 20 MG TAB PO SCH ×2 (10:32→20:52)
[2020-06-28] MEDS: Folic Acid 1 MG TAB PO SCH (10:32)
[2020-06-28] MEDS: FLUoxetine HCl 10 MG CAP PO SCH (10:33)
[2020-06-28] MEDS: Clopidogrel Bisulfate 75 MG TAB PO SCH (10:33)
[2020-06-28] MEDS: Furosemide 40 MG TAB PO SCH (10:33)
[2020-06-28] MEDS: predniSONE 50 MG TAB PO SCH ×2 (10:34→20:52)
[2020-06-28] MEDS ORDERED: Hyaluronidase, Human Recomb. 150 UNIT/ML VIAL IJ SCH (11:30)
[2020-06-28] MEDS: Amiodarone 450 MG in Dextrose 5% in Water 250 ML IVPB SCH (13:03)
[2020-06-28] MEDS: Furosemide 20 MG TAB PO SCH (20:52)
[2020-06-28] MEDS: Amiodarone 200 MG TAB PO SCH (20:52)
[2020-06-28] MEDS: Rosuvastatin 10 MG TAB PO SCH (20:53)
[2020-06-29 05:53] LABS: Hemoglobin 13.9 g/dL (14.0-18.0); Lymphocytes 9 % (21-51); MDiff Complete? YES; Mean Corpuscular HGB CONC 33.3 g/dL (32.0-36.0); Mean Corpuscular Hemoglobin 31.5 pg (27.0-31.0); Mean Corpuscular Volume 94.7 fL (78.0-98.0); Mean Platelet Volume 9.2 fL (7.4-10.4); Metamyelocyte 1 % (0-0); Monocytes 2 % (0-10); Neutrophil 88 % (42-75); Platelet Count 190 thou/uL (130-400); Platelet Morphology Comment Appears Adequate; RBC Distribution Width 12.4 % (11.5-14.5); Red Blood Cell (RBC) Count 4.41 mill/uL (4.70-6.10); White Blood Cell (WBC) Count 13.6 thou/uL (4.8-10.8)
[2020-06-29 05:53] LABS: Chloride 106 mmol/L (98-107); Glucose 86 mg/dL (70-105); Potassium 3.8 mmol/L (3.5-5.1); Sodium 140 mmol/L (136-145)
[2020-06-29 05:54] LABS: Anion Gap 14 mmol/L (10-20); BUN (Urea Nitrogen) 23 mg/dL (8.4-25.7); Calc. Creatinine Clearance 78 mL/min (70-130); Carbon Dioxide 24 mmol/L (22-29)
[2020-06-29] MEDS ORDERED: Sodium Chloride 0.9% 1,000 ML IV SCH ×2 (06:00→08:15)
[2020-06-29] MEDS: diphenhydrAMINE 50 MG CAP PO SCH ×2 (06:24→08:51)
[2020-06-29] MEDS ORDERED: Lidocaine 1% (PF) 30 ML VIAL ONE ×2 (06:33→15:35)
[2020-06-29] MEDS ORDERED: Heparin 10,000 UNITS/ 10 ML VIAL ONE (06:33)
[2020-06-29] MEDS: Mometasone 200 MCG/Formoterol 5 MCG 120 PUFF INHALER INH SCH ×2 (06:52→19:01)
[2020-06-29] MEDS ORDERED: Midazolam HCl 2 mg/2 ml Vial ONE (07:02)
[2020-06-29] MEDS ORDERED: Fentanyl 100 MCG/2 ML VIAL ONE ×2 (07:02→16:07)
[2020-06-29] MEDS ORDERED: Bivalirudin 250 MG VIAL ONE (07:44)
[2020-06-29] MEDS: Amiodarone 200 MG TAB PO SCH ×2 (08:47→21:25)
[2020-06-29] MEDS: Digoxin 0.125 MG TAB PO SCH (08:48)
[2020-06-29] MEDS: Furosemide 40 MG TAB PO SCH (08:48)
[2020-06-29] MEDS: Folic Acid 1 MG TAB PO SCH (08:48)
[2020-06-29] MEDS: predniSONE 50 MG TAB PO SCH (08:48)
[2020-06-29] MEDS: Aspirin 81 mg Enteric Coated Tablet PO SCH (08:48)
[2020-06-29] MEDS: Famotidine 20 MG TAB PO SCH (08:48)
[2020-06-29] MEDS: Ezetimibe 10 MG TAB PO SCH (08:49)
[2020-06-29] MEDS: FLUoxetine HCl 10 MG CAP PO SCH (08:50)
[2020-06-29] MEDS ORDERED: Iopamidol 370 76% 100 ML VIAL ONE (09:04)
[2020-06-29] MEDS ORDERED: Iopamidol 370 76% 50 ML VIAL FS ONE (12:16)
[2020-06-29] MEDS ORDERED: Gentamicin 80 MG/2 ML VIAL ONE (15:35)
[2020-06-29] MEDS ORDERED: CEFAZOLIN 1 GM VIAL ONE (15:35)
[2020-06-29] MEDS ORDERED: Propofol 1,000 MG/100 ML VIAL IV ONE (15:51)
[2020-06-29] MEDS ORDERED: Ondansetron PF 4 MG/2 ML Vial ONE (15:59)
[2020-06-29] MEDS ORDERED: PROPOFOL 200 MG/20 ML VIAL ONE (15:59)
[2020-06-29] MEDS: Rosuvastatin 10 MG TAB PO SCH (21:23)
[2020-06-29] MEDS: Furosemide 20 MG TAB PO SCH (21:25)
[2020-06-29 21:52] LABS: Hemoglobin 13.8 g/dL (14.0-18.0); Platelet Count 177 thou/uL (130-400)
[2020-06-29] MEDS ORDERED: traMADol HCl 50 MG TAB PO PRN (22:14)
[2020-06-29] MEDS ORDERED: Cephalexin 250 MG CAP PO SCH (22:30)
[2020-06-30 05:07] LABS: INR-International Normal Ratio 1.1; Prothrombin Time 14.1 sec (12.0-14.7)
[2020-06-30 05:21] LABS: ALT (SGPT) 17 U/L (8-55); AST (SGOT) 20 U/L (5-34); Albumin 3.4 g/dL (3.5-5.0); Alkaline Phosphatase 67 U/L (40-110); Anion Gap 11 mmol/L (10-20); BUN (Urea Nitrogen) 26 mg/dL (8.4-25.7); Bilirubin, Total 0.5 mg/dL (0.2-1.2); Calc. Creatinine Clearance 83 mL/min (70-130); Calcium 8.5 mg/dL (7.8-10.44); Carbon Dioxide 23 mmol/L (22-29); Chloride 107 mmol/L (98-107); Globulin 2.6 g/dL (2.4-3.5); Glucose 117 mg/dL (70-105); Potassium 3.9 mmol/L (3.5-5.1); Sodium 137 mmol/L (136-145)
[2020-06-30 05:22] LABS: Hemoglobin 13.8 g/dL (14.0-18.0); Lymphocytes 9 % (21-51); MDiff Complete? YES; Mean Corpuscular HGB CONC 33.8 g/dL (32.0-36.0); Mean Corpuscular Hemoglobin 31.7 pg (27.0-31.0); Mean Corpuscular Volume 93.8 fL (78.0-98.0); Monocytes 4 % (0-10); Neutrophil 87 % (42-75); Platelet Count 166 thou/uL (130-400); Platelet Morphology Comment Appears Adequate; RBC Distribution Width 12.2 % (11.5-14.5); RBC Morphology Normal; Red Blood Cell (RBC) Count 4.35 mill/uL (4.70-6.10); White Blood Cell (WBC) Count 10.3 thou/uL (4.8-10.8)
[2020-06-30] MEDS: Mometasone 200 MCG/Formoterol 5 MCG 120 PUFF INHALER INH SCH (06:42)
[2020-06-30] MEDS: Ezetimibe 10 MG TAB PO SCH (08:14)
[2020-06-30] MEDS: Digoxin 0.125 MG TAB PO SCH (08:15)
[2020-06-30] MEDS: Clopidogrel Bisulfate 75 MG TAB PO SCH (08:15)
[2020-06-30] MEDS: Folic Acid 1 MG TAB PO SCH (08:15)
[2020-06-30] MEDS: Amiodarone 200 MG TAB PO SCH (08:15)
[2020-06-30] MEDS: Aspirin 81 mg Enteric Coated Tablet PO SCH (08:15)
[2020-06-30] MEDS: Cephalexin 250 MG CAP PO SCH ×3 (08:16→16:33)
[2020-06-30] MEDS: Furosemide 40 MG TAB PO SCH (08:16)
[2020-06-30] MEDS: FLUoxetine HCl 10 MG CAP PO SCH (08:16)
[2020-06-30 16:01] VITALS: BP 112/76; TEMP 98.8
[2020-06-30] MEDS ORDERED: Warfarin Sodium 5 MG TAB PO SCH (17:00)
== END 2020-06-30 18:00 | disposition home or self-care (01) | DRG 224 ==
LOC: ERS 19:48 → CCU 21:05 → 2NO 06-29 17:04
PROVIDERS: ADMIT Student in an Organized Health Care Education/Training Program; ATTEND Student in an Organized Health Care Education/Training Program
PROC: B2111ZZ Fluoroscopy of Multiple Coronary Arteries using Low Osmolar Contrast (ICD-10-PCS; principal; 2020-06-29)
PROC: 0JH608Z Insertion of Defibrillator Generator into Chest Subcutaneous Tissue and Fascia, Open Approach (ICD-10-PCS; 2020-06-29)
PROC: 02HL3KZ Insertion of Defibrillator Lead into Left Ventricle, Percutaneous Approach (ICD-10-PCS; 2020-06-29)
PROC: 02HK3KZ Insertion of Defibrillator Lead into Right Ventricle, Percutaneous Approach (ICD-10-PCS; 2020-06-29)
PROC: 02H63KZ Insertion of Defibrillator Lead into Right Atrium, Percutaneous Approach (ICD-10-PCS; 2020-06-29)
DX: I47.2 Ventricular tachycardia (principal); I21.4 Non-ST elevation (NSTEMI) myocardial infarction; I13.0 Hypertensive heart and chronic kidney disease with heart failure and stage 1 through stage 4 chronic kidney disease, or unspecified chronic kidney disease; N17.9 Acute kidney failure, unspecified; I50.42 Chronic combined systolic (congestive) and diastolic (congestive) heart failure; Z20.822 Contact with and (suspected) exposure to COVID-19; I25.10 Atherosclerotic heart disease of native coronary artery without angina pectoris; J44.9 Chronic obstructive pulmonary disease, unspecified; N18.30 Chronic kidney disease, stage 3 unspecified; I44.0 Atrioventricular block, first degree; I25.5 Ischemic cardiomyopathy; E78.5 Hyperlipidemia, unspecified; R79.1 Abnormal coagulation profile; I44.7 Left bundle-branch block, unspecified; D72.829 Elevated white blood cell count, unspecified; T38.0X5A Adverse effect of glucocorticoids and synthetic analogues, initial encounter; Z91.041 Radiographic dye allergy status; Z91.040 Latex allergy status; Z95.1 Presence of aortocoronary bypass graft; Z90.49 Acquired absence of other specified parts of digestive tract; Z95.2 Presence of prosthetic heart valve; Z87.891 Personal history of nicotine dependence; Z79.01 Long term (current) use of anticoagulants; Z79.82 Long term (current) use of aspirin; Z79.51 Long term (current) use of inhaled steroids; Z79.899 Other long term (current) drug therapy; Z95.5 Presence of coronary angioplasty implant and graft
CPT/HCPCS: 33225; 33249; 36005; 36415; 71045; 75820; 76942; 80048; 80053; 80061; 82553; 83735; 84100; 84145; 84443; 84484; 85007; 85014; 85018; 85025; 85027; 85049; 85347; 85610; 85730; 93005; 93010; 93306; 93454; 93571; 93798; 94640; 96365; 96366; 96375; C1769; C1777; C1882; C1898; C1900; J0153; J0282; J0583; J0690; J1580; J1644; J2001; J2250; J2405; J2704; J3010; J3430; J3473; J3490; J7070; J7512; J7620; Q9967; U0002

== ENCOUNTER 2020-08-01 10:23 | Outpatient (CLI) | payer BC, MEDICARE | END 2020-08-01 10:24 | disposition home or self-care (01) | LOC: BICRAD 10:23 | PROVIDERS: ATTEND Internal Medicine Pulmonary Disease | DX: R06.00 Dyspnea, unspecified (principal) | CPT/HCPCS: 71046 ==

== ENCOUNTER 2021-03-19 12:36 | Inpatient (IN) | payer BC, MEDICARE ==
[2021-03-19 13:13] LABS: #Lymphocytes 0.8 thou/uL (1.20-3.40); #Monocytes 0.8 thou/uL (0.11-0.59); #Neutrophils 9.6 thou/uL (1.40-6.50); %Basophils 0.2 % (0.0-1.0); %Eosinophils 0.1 % (0.0-10.0); %Neutrophils 85.6 % (42.0-75.0); Mean Corpuscular HGB CONC 32.4 g/dL (32.0-36.0); Mean Corpuscular Hemoglobin 30.3 pg (27.0-31.0); Mean Corpuscular Volume 93.6 fL (78.0-98.0); Mean Platelet Volume 8.8 fL (7.4-10.4); Platelet Count 232 thou/uL (130-400); RBC Distribution Width 13.9 % (11.5-14.5); Red Blood Cell (RBC) Count 5.92 mill/uL (4.70-6.10); White Blood Cell (WBC) Count 11.2 thou/uL (4.8-10.8)
[2021-03-19] MEDS ORDERED: Dexamethasone 10 MG/ML VIAL ONE (13:21)
[2021-03-19] MEDS ORDERED: Albuterol Sulfate 2.5 mg/3 ml Neb ONE (13:22)
[2021-03-19 13:26] LABS: D-Dimer Test 0.91 *mcg/mL (0.27-0.43); PTT 54.6 sec (22.9-36.1)
[2021-03-19 13:28] LABS: Prothrombin Time 42.3 sec (12.0-14.7)
[2021-03-19 13:31] LABS: INR-International Normal Ratio 4.3
[2021-03-19 13:32] LABS: ALT (SGPT) 171 U/L (8-55); AST (SGOT) 228 U/L (5-34); Albumin 3.2 g/dL (3.4-4.8); Alkaline Phosphatase 93 U/L (40-110); Anion Gap 18 mmol/L (10-20); BUN (Urea Nitrogen) 20 mg/dL (8.4-25.7); Bilirubin, Total 2.1 mg/dL (0.2-1.2); Calc. Creatinine Clearance 0 mL/min (70-130); Calcium 9.4 mg/dL (7.8-10.44); Carbon Dioxide 24 mmol/L (23-31); Chloride 97 mmol/L (98-107); Globulin 3.7 g/dL (2.4-3.5); Glucose 136 mg/dL (80-115); Potassium 3.6 mmol/L (3.5-5.1); Protein, Total 6.9 g/dL (5.8-8.1); Sodium 135 mmol/L (136-145)
[2021-03-19 14:28] LABS: CKMB 1.9 ng/mL (0-6.6)
[2021-03-19] MEDS ORDERED: Albuterol 200 PUFF (6.7GM INHALER) ONE (14:38)
[2021-03-19] MEDS ORDERED: Non-Formulary Item 1 EACH (Albuterol Sulfate [Proair Hfa] 108 Hfa.Aer.Ad) PO PRN (15:01)
[2021-03-19] MEDS ORDERED: Nitroglycerin 0.4 MG TAB (25 Tab Bottle) SL PRN (15:01)
[2021-03-19 15:09] LABS: SARS-CoV-2 NAA Rapid Test DETECTED (NotDetected)
[2021-03-19] MEDS: Lactated Ringer's 1,000 ML IV SCH (15:38)
[2021-03-19 18:12] LABS: Lactic Acid 1.9 mmol/L (0.5-2.2)
[2021-03-19 18:14] LABS: Troponin I 0.107 ng/mL (< 0.028)
[2021-03-19] MEDS: Albuterol 200 PUFF (6.7GM INHALER) INH SCH (19:16)
[2021-03-19] MEDS: Mometasone 200 MCG/Formoterol 5 MCG 120 PUFF INHALER INH SCH (19:19)
[2021-03-19] MEDS: Rosuvastatin 10 MG TAB PO SCH (20:40)
[2021-03-19] MEDS ORDERED: Amiodarone 200 MG TAB PO SCH (21:00)
[2021-03-19 21:16] LABS: Troponin I 0.085 ng/mL (< 0.028)
[2021-03-20] MEDS: Lactated Ringer's 1,000 ML IV SCH ×3 (01:15→15:15)
[2021-03-20] MEDS: Albuterol 200 PUFF (6.7GM INHALER) INH SCH ×3 (01:45→14:46)
[2021-03-20 04:33] LABS: PTT 62.9 sec (22.9-36.1); Prothrombin Time 48.2 sec (12.0-14.7)
[2021-03-20 04:37] LABS: Band 13 % (5-11); Hemoglobin 15.6 g/dL (14.0-18.0); Lymphocytes 2 % (21-51); MDiff Complete? YES; Mean Corpuscular HGB CONC 33.7 g/dL (32.0-36.0); Mean Corpuscular Hemoglobin 31.1 pg (27.0-31.0); Mean Corpuscular Volume 92.3 fL (78.0-98.0); Monocytes 2 % (0-10); Neutrophil 83 % (42-75); Platelet Count 192 thou/uL (130-400); Platelet Morphology Comment Appears Adequate; RBC Distribution Width 13.7 % (11.5-14.5); RBC Morphology Normal; Red Blood Cell (RBC) Count 5.02 mill/uL (4.70-6.10); White Blood Cell (WBC) Count 7.5 thou/uL (4.8-10.8)
[2021-03-20 04:38] LABS: INR-International Normal Ratio 5.1
[2021-03-20 04:53] LABS: ALT (SGPT) 146 U/L (8-55); AST (SGOT) 186 U/L (5-34); Albumin 2.6 g/dL (3.4-4.8); Alkaline Phosphatase 74 U/L (40-110); Anion Gap 12 mmol/L (10-20); BUN (Urea Nitrogen) 32 mg/dL (8.4-25.7); Bilirubin, Total 1.3 mg/dL (0.2-1.2); Calc. Creatinine Clearance 63 mL/min (70-130); Calcium 9.1 mg/dL (7.8-10.44); Carbon Dioxide 28 mmol/L (23-31); Chloride 99 mmol/L (98-107); Globulin 3.1 g/dL (2.4-3.5); Glucose 138 mg/dL (80-115); Potassium 4.1 mmol/L (3.5-5.1); Protein, Total 5.7 g/dL (5.8-8.1); Sodium 135 mmol/L (136-145)
[2021-03-20] MEDS: Mometasone 200 MCG/Formoterol 5 MCG 120 PUFF INHALER INH SCH (06:34)
[2021-03-20] MEDS ORDERED: Enoxaparin Sodium 30 MG/0.3 ML SYRINGE SC SCH (09:00)
[2021-03-20] MEDS ORDERED: Enoxaparin Sodium 40 MG/0.4 ML SYRINGE SC SCH (09:00)
[2021-03-20] MEDS: Digoxin 0.125 MG TAB PO SCH (09:38)
[2021-03-20] MEDS: Ezetimibe 10 MG TAB PO SCH (09:38)
[2021-03-20] MEDS: Dexamethasone 4 MG TAB PO SCH (09:38)
[2021-03-20] MEDS: Furosemide 40 MG TAB PO SCH (09:39)
[2021-03-20] MEDS: Folic Acid 1 MG TAB PO SCH (09:39)
[2021-03-20] MEDS: FLUoxetine HCl 10 MG CAP PO SCH (09:39)
[2021-03-20] MEDS: Clopidogrel Bisulfate 75 MG TAB PO SCH (09:39)
[2021-03-20] MEDS: Rosuvastatin 10 MG TAB PO SCH (21:50)
[2021-03-21] MEDS: Albuterol 200 PUFF (6.7GM INHALER) INH SCH ×5 (00:33→18:29)
[2021-03-21] MEDS: Mometasone 200 MCG/Formoterol 5 MCG 120 PUFF INHALER INH SCH ×3 (00:33→18:28)
[2021-03-21 06:39] LABS: PTT 45.9 sec (22.9-36.1); Prothrombin Time 44.7 sec (12.0-14.7)
[2021-03-21 06:41] LABS: INR-International Normal Ratio 4.6
[2021-03-21 06:43] LABS: Band 11 % (5-11); Hemoglobin 14.8 g/dL (14.0-18.0); Lymphocytes 1 % (21-51); MDiff Complete? YES; Mean Corpuscular HGB CONC 32.4 g/dL (32.0-36.0); Mean Corpuscular Hemoglobin 29.7 pg (27.0-31.0); Mean Corpuscular Volume 91.5 fL (78.0-98.0); Mean Platelet Volume 8.5 fL (7.4-10.4); Monocytes 8 % (0-10); Neutrophil 80 % (42-75); Platelet Count 263 thou/uL (130-400); Platelet Morphology Comment Appears Adequate; RBC Distribution Width 13.8 % (11.5-14.5); RBC Morphology Normal; White Blood Cell (WBC) Count 14.9 thou/uL (4.8-10.8)
[2021-03-21 06:50] LABS: ALT (SGPT) 154 U/L (8-55); AST (SGOT) 167 U/L (5-34); Albumin 2.6 g/dL (3.4-4.8); Alkaline Phosphatase 87 U/L (40-110); Anion Gap 11 mmol/L (10-20); BUN (Urea Nitrogen) 40 mg/dL (8.4-25.7); Calc. Creatinine Clearance 68 mL/min (70-130); Calcium 9.4 mg/dL (7.8-10.44); Carbon Dioxide 30 mmol/L (23-31); Chloride 103 mmol/L (98-107); Globulin 3.1 g/dL (2.4-3.5); Glucose 142 mg/dL (80-115); Potassium 4.3 mmol/L (3.5-5.1); Protein, Total 5.7 g/dL (5.8-8.1); Sodium 140 mmol/L (136-145)
[2021-03-21] MEDS: Ezetimibe 10 MG TAB PO SCH ×3 (09:07→20:45)
[2021-03-21] MEDS: Dexamethasone 4 MG TAB PO SCH (09:07)
[2021-03-21] MEDS: Clopidogrel Bisulfate 75 MG TAB PO SCH (09:07)
[2021-03-21] MEDS: Folic Acid 1 MG TAB PO SCH (09:07)
[2021-03-21] MEDS: Digoxin 0.125 MG TAB PO SCH (09:07)
[2021-03-21] MEDS: Furosemide 40 MG TAB PO SCH (09:07)
[2021-03-21] MEDS: FLUoxetine HCl 10 MG CAP PO SCH (09:07)
[2021-03-21] MEDS ORDERED: guaiFENesin/DM ER PO SCH (10:15)
[2021-03-21] MEDS: Melatonin 3 MG TAB PO SCH (20:45)
[2021-03-21] MEDS: guaiFENesin/DM ER PO SCH (20:45)
[2021-03-21] MEDS: Rosuvastatin 10 MG TAB PO SCH (20:45)
[2021-03-22] MEDS: Albuterol 200 PUFF (6.7GM INHALER) INH SCH ×7 (00:55→22:44)
[2021-03-22 05:54] LABS: PTT 48.1 sec (22.9-36.1); Prothrombin Time 51.2 sec (12.0-14.7)
[2021-03-22] MEDS: Mometasone 200 MCG/Formoterol 5 MCG 120 PUFF INHALER INH SCH ×2 (05:58→19:13)
[2021-03-22 06:00] LABS: Band 3 % (5-11); Hemoglobin 13.5 g/dL (14.0-18.0); Hypochromia SLIGHT = 6-15 cells (100X) (0-5/hpf); Lymphocytes 1 % (21-51); MDiff Complete? YES; Mean Corpuscular HGB CONC 32.8 g/dL (32.0-36.0); Mean Corpuscular Hemoglobin 30.1 pg (27.0-31.0); Mean Corpuscular Volume 91.9 fL (78.0-98.0); Mean Platelet Volume 8.5 fL (7.4-10.4); Monocytes 10 % (0-10); Neutrophil 86 % (42-75); Platelet Count 237 thou/uL (130-400); Platelet Morphology Comment Appears Adequate; RBC Distribution Width 13.7 % (11.5-14.5); White Blood Cell (WBC) Count 10.6 thou/uL (4.8-10.8)
[2021-03-22 06:03] LABS: INR-International Normal Ratio 5.5
[2021-03-22 06:04] LABS: ALT (SGPT) 156 U/L (8-55); AST (SGOT) 160 U/L (5-34); Albumin 2.4 g/dL (3.4-4.8); Alkaline Phosphatase 83 U/L (40-110); Anion Gap 14 mmol/L (10-20); BUN (Urea Nitrogen) 37 mg/dL (8.4-25.7); Bilirubin, Total 0.8 mg/dL (0.2-1.2); Calc. Creatinine Clearance 77 mL/min (70-130); Calcium 8.7 mg/dL (7.8-10.44); Carbon Dioxide 27 mmol/L (23-31); Chloride 104 mmol/L (98-107); Globulin 2.8 g/dL (2.4-3.5); Glucose 162 mg/dL (80-115); Potassium 3.8 mmol/L (3.5-5.1); Protein, Total 5.2 g/dL (5.8-8.1); Sodium 141 mmol/L (136-145)
[2021-03-22] MEDS: Dexamethasone 4 MG TAB PO SCH (10:50)
[2021-03-22] MEDS: Furosemide 40 MG TAB PO SCH (10:51)
[2021-03-22] MEDS: Digoxin 0.125 MG TAB PO SCH (10:52)
[2021-03-22] MEDS: Folic Acid 1 MG TAB PO SCH (10:52)
[2021-03-22] MEDS: Clopidogrel Bisulfate 75 MG TAB PO SCH (10:52)
[2021-03-22] MEDS: FLUoxetine HCl 10 MG CAP PO SCH (10:52)
[2021-03-22] MEDS: guaiFENesin/DM ER PO SCH ×2 (13:01→20:16)
[2021-03-22] MEDS: Ipratropium/Albuterol Sulfate 4 GM AER IH SCH ×3 (15:15→18:24)
[2021-03-22 15:22] VITALS: BMI 21.2
[2021-03-22] MEDS: Ezetimibe 10 MG TAB PO SCH (20:16)
[2021-03-22] MEDS: Melatonin 3 MG TAB PO SCH (20:17)
[2021-03-22] MEDS: Rosuvastatin 10 MG TAB PO SCH (20:17)
[2021-03-23] MEDS: Albuterol 200 PUFF (6.7GM INHALER) INH SCH ×12 (01:16→22:58)
[2021-03-23] MEDS: Mometasone 200 MCG/Formoterol 5 MCG 120 PUFF INHALER INH SCH ×2 (05:43→18:30)
[2021-03-23 07:36] LABS: Hemoglobin 13.9 g/dL (14.0-18.0); Mean Corpuscular HGB CONC 33.3 g/dL (32.0-36.0); Mean Corpuscular Hemoglobin 30.7 pg (27.0-31.0); Mean Corpuscular Volume 92.3 fL (78.0-98.0); Mean Platelet Volume 8.5 fL (7.4-10.4); Platelet Count 258 thou/uL (130-400); RBC Distribution Width 13.7 % (11.5-14.5); Red Blood Cell (RBC) Count 4.52 mill/uL (4.70-6.10); White Blood Cell (WBC) Count 9.7 thou/uL (4.8-10.8)
[2021-03-23 07:40] LABS: PTT 49.3 sec (22.9-36.1); Prothrombin Time 52.7 sec (12.0-14.7)
[2021-03-23 07:43] LABS: INR-International Normal Ratio 5.7
[2021-03-23 07:45] LABS: ALT (SGPT) 181 U/L (8-55); AST (SGOT) 146 U/L (5-34); Albumin 2.4 g/dL (3.4-4.8); Alkaline Phosphatase 94 U/L (40-110); Anion Gap 10 mmol/L (10-20); BUN (Urea Nitrogen) 33 mg/dL (8.4-25.7); Bilirubin, Total 0.7 mg/dL (0.2-1.2); Calc. Creatinine Clearance 82 mL/min (70-130); Calcium 8.4 mg/dL (7.8-10.44); Carbon Dioxide 31 mmol/L (23-31); Chloride 103 mmol/L (98-107); Globulin 2.7 g/dL (2.4-3.5); Glucose 156 mg/dL (80-115); Potassium 3.9 mmol/L (3.5-5.1); Protein, Total 5.1 g/dL (5.8-8.1); Sodium 140 mmol/L (136-145)
[2021-03-23] MEDS: guaiFENesin/DM ER PO SCH ×2 (08:12→20:27)
[2021-03-23] MEDS: Folic Acid 1 MG TAB PO SCH (08:12)
[2021-03-23] MEDS: FLUoxetine HCl 10 MG CAP PO SCH (08:12)
[2021-03-23] MEDS: Clopidogrel Bisulfate 75 MG TAB PO SCH (08:13)
[2021-03-23] MEDS: Furosemide 40 MG TAB PO SCH (08:13)
[2021-03-23] MEDS: Dexamethasone 4 MG TAB PO SCH (08:14)
[2021-03-23 08:31] LABS: Band 2 % (5-11); Lymphocytes 6 % (21-51); MDiff Complete? YES; Monocytes 5 % (0-10); Neutrophil 84 % (42-75); Platelet Morphology Comment Appears Adequate; Polychromasia SLIGHT = 2-3 cells (100X) (0-2/hpf); Reactive Lymphocytes 3 % (0-10)
[2021-03-23] MEDS ORDERED: Lidocaine 5% Patch TD SCH (10:15)
[2021-03-23] MEDS ORDERED: Lidocaine 5% Patch ONE (11:41)
[2021-03-23] MEDS: Digoxin 0.125 MG TAB PO SCH (11:43)
[2021-03-23] MEDS: Ezetimibe 10 MG TAB PO SCH (20:27)
[2021-03-23] MEDS: Rosuvastatin 10 MG TAB PO SCH (20:27)
[2021-03-23] MEDS: Melatonin 3 MG TAB PO SCH (20:27)
[2021-03-23] MEDS: Transdermal Patch Removal TOP SCH (20:54)
[2021-03-24] MEDS: Albuterol 200 PUFF (6.7GM INHALER) INH SCH ×5 (00:48→10:44)
[2021-03-24] MEDS ORDERED: Benzonatate 100 MG CAP PO PRN (04:05)
[2021-03-24] MEDS: Mometasone 200 MCG/Formoterol 5 MCG 120 PUFF INHALER INH SCH ×3 (06:12→20:39)
[2021-03-24 06:56] LABS: PTT 46.1 sec (22.9-36.1)
[2021-03-24 06:57] LABS: Prothrombin Time 51.6 sec (12.0-14.7)
[2021-03-24 07:06] LABS: Albumin 2.4 g/dL (3.4-4.8)
[2021-03-24 07:07] LABS: Chloride 104 mmol/L (98-107); Potassium 4.3 mmol/L (3.5-5.1); Sodium 142 mmol/L (136-145)
[2021-03-24 07:08] LABS: Calcium 8.1 mg/dL (7.8-10.44); Glucose 141 mg/dL (80-115)
[2021-03-24 07:09] LABS: Globulin 2.4 g/dL (2.4-3.5); Protein, Total 4.8 g/dL (5.8-8.1)
[2021-03-24 07:10] LABS: Anion Gap 11 mmol/L (10-20); Bilirubin, Total 0.7 mg/dL (0.2-1.2); Carbon Dioxide 31 mmol/L (23-31)
[2021-03-24 07:11] LABS: Alkaline Phosphatase 110 U/L (40-110)
[2021-03-24 07:12] LABS: BUN (Urea Nitrogen) 34 mg/dL (8.4-25.7); Calc. Creatinine Clearance 75 mL/min (70-130)
[2021-03-24 07:13] LABS: AST (SGOT) 184 U/L (5-34); Hemoglobin 13.3 g/dL (14.0-18.0); Mean Corpuscular HGB CONC 31.4 g/dL (32.0-36.0); Mean Corpuscular Hemoglobin 29.1 pg (27.0-31.0); Mean Corpuscular Volume 92.5 fL (78.0-98.0); Mean Platelet Volume 8.5 fL (7.4-10.4); Platelet Count 298 thou/uL (130-400); RBC Distribution Width 13.8 % (11.5-14.5); Red Blood Cell (RBC) Count 4.58 mill/uL (4.70-6.10); White Blood Cell (WBC) Count 12.1 thou/uL (4.8-10.8)
[2021-03-24 07:14] LABS: ALT (SGPT) 235 U/L (8-55)
[2021-03-24 07:25] LABS: INR-International Normal Ratio 5.5
[2021-03-24] MEDS: Clopidogrel Bisulfate 75 MG TAB PO SCH (10:40)
[2021-03-24] MEDS: Dexamethasone 4 MG TAB PO SCH (10:40)
[2021-03-24] MEDS: Digoxin 0.125 MG TAB PO SCH (10:41)
[2021-03-24] MEDS: Furosemide 40 MG TAB PO SCH (10:43)
[2021-03-24] MEDS: Folic Acid 1 MG TAB PO SCH (10:43)
[2021-03-24] MEDS: Acetaminophen 500 MG TAB PO SCH ×2 (10:52→17:28)
[2021-03-24 11:20] LABS: Band 2 % (5-11); Lymphocytes 6 % (21-51); MDiff Complete? YES; Monocytes 7 % (0-10); Neutrophil 83 % (42-75); Platelet Morphology Comment Appears Adequate; RBC Morphology Normal; Reactive Lymphocytes 2 % (0-10)
[2021-03-24] MEDS ORDERED: Acetaminophen 500 MG TAB PO PRN (11:32)
[2021-03-24] MEDS: FLUoxetine HCl 10 MG CAP PO SCH (14:12)
[2021-03-24] MEDS: guaiFENesin/DM ER PO SCH ×2 (14:13→20:38)
[2021-03-24] MEDS: Lidocaine 5% Patch TD SCH (14:13)
[2021-03-24] MEDS ORDERED: Ketorolac Tromethamine 10 MG TAB PO SCH ×2 (15:15→18:00)
[2021-03-24] MEDS ORDERED: Phytonadione 5 MG TAB PO SCH (18:30)
[2021-03-24] MEDS: Melatonin 3 MG TAB PO SCH (20:38)
[2021-03-24] MEDS: Rosuvastatin 10 MG TAB PO SCH (20:38)
[2021-03-24] MEDS: Ezetimibe 10 MG TAB PO SCH (20:38)
[2021-03-24] MEDS: Transdermal Patch Removal TOP SCH (20:39)
[2021-03-25] MEDS: Ketorolac Tromethamine 10 MG TAB PO SCH ×2 (00:56→05:39)
[2021-03-25] MEDS: Acetaminophen 500 MG TAB PO SCH ×3 (00:56→12:30)
[2021-03-25 05:55] LABS: Hemoglobin 12.1 g/dL (14.0-18.0); Mean Corpuscular HGB CONC 32.4 g/dL (32.0-36.0); Mean Corpuscular Hemoglobin 29.9 pg (27.0-31.0); Mean Corpuscular Volume 92.1 fL (78.0-98.0); Mean Platelet Volume 8.3 fL (7.4-10.4); Platelet Count 307 thou/uL (130-400); RBC Distribution Width 13.6 % (11.5-14.5); Red Blood Cell (RBC) Count 4.06 mill/uL (4.70-6.10); White Blood Cell (WBC) Count 9.9 thou/uL (4.8-10.8)
[2021-03-25 06:05] LABS: Band 3 % (5-11); INR-International Normal Ratio 3.4; Lymphocytes 2 % (21-51); MDiff Complete? YES; Monocytes 4 % (0-10); Neutrophil 91 % (42-75); PTT 38.4 sec (22.9-36.1); Prothrombin Time 35.2 sec (12.0-14.7); Toxic Granulation SLIGHT
[2021-03-25 06:16] LABS: ALT (SGPT) 201 U/L (8-55); AST (SGOT) 101 U/L (5-34); Albumin 2.3 g/dL (3.4-4.8); Alkaline Phosphatase 96 U/L (40-110); Anion Gap 13 mmol/L (10-20); BUN (Urea Nitrogen) 36 mg/dL (8.4-25.7); Bilirubin, Total 0.7 mg/dL (0.2-1.2); Calc. Creatinine Clearance 83 mL/min (70-130); Calcium 7.9 mg/dL (7.8-10.44); Carbon Dioxide 25 mmol/L (23-31); Chloride 103 mmol/L (98-107); Globulin 2.5 g/dL (2.4-3.5); Glucose 157 mg/dL (80-115); Potassium 4.2 mmol/L (3.5-5.1); Protein, Total 4.8 g/dL (5.8-8.1); Sodium 137 mmol/L (136-145)
[2021-03-25] MEDS ORDERED: Dexamethasone 4 MG TAB PO SCH (08:00)
[2021-03-25] MEDS ORDERED: Ketorolac Tromethamine 10 MG TAB PO PRN (08:18)
[2021-03-25] MEDS: Digoxin 0.125 MG TAB PO SCH (09:38)
[2021-03-25] MEDS: guaiFENesin/DM ER PO SCH ×2 (09:39→19:58)
[2021-03-25] MEDS: FLUoxetine HCl 10 MG CAP PO SCH (09:39)
[2021-03-25] MEDS: Furosemide 40 MG TAB PO SCH (09:39)
[2021-03-25] MEDS: Clopidogrel Bisulfate 75 MG TAB PO SCH (09:40)
[2021-03-25] MEDS: Folic Acid 1 MG TAB PO SCH (09:40)
[2021-03-25] MEDS: Dexamethasone 1 MG TAB PO SCH (09:40)
[2021-03-25] MEDS: Lidocaine 5% Patch TD SCH (12:31)
[2021-03-25] MEDS ORDERED: Warfarin Sodium 2 MG TAB PO SCH (17:00)
[2021-03-25] MEDS: Mometasone 200 MCG/Formoterol 5 MCG 120 PUFF INHALER INH SCH (19:57)
[2021-03-25] MEDS: Rosuvastatin 10 MG TAB PO SCH (19:58)
[2021-03-25] MEDS: Ezetimibe 10 MG TAB PO SCH (19:58)
[2021-03-25] MEDS: Melatonin 3 MG TAB PO SCH (19:58)
[2021-03-25] MEDS: Transdermal Patch Removal TOP SCH (22:38)
[2021-03-26] MEDS: Mometasone 200 MCG/Formoterol 5 MCG 120 PUFF INHALER INH SCH (06:02)
[2021-03-26 08:10] LABS: ALT (SGPT) 231 U/L (8-55); AST (SGOT) 139 U/L (5-34); Albumin 2.2 g/dL (3.4-4.8); Alkaline Phosphatase 101 U/L (40-110); Anion Gap 12 mmol/L (10-20); BUN (Urea Nitrogen) 39 mg/dL (8.4-25.7); Bilirubin, Total 0.8 mg/dL (0.2-1.2); Calc. Creatinine Clearance 79 mL/min (70-130); Calcium 7.8 mg/dL (7.8-10.44); Carbon Dioxide 24 mmol/L (23-31); Chloride 106 mmol/L (98-107); Globulin 2.5 g/dL (2.4-3.5); Glucose 137 mg/dL (80-115); Potassium 4.6 mmol/L (3.5-5.1); Protein, Total 4.7 g/dL (5.8-8.1); Sodium 137 mmol/L (136-145)
[2021-03-26 08:19] LABS: INR-International Normal Ratio 1.6; PTT 29.3 sec (22.9-36.1); Prothrombin Time 19.6 sec (12.0-14.7)
[2021-03-26] MEDS: Dexamethasone 1 MG TAB PO SCH (09:33)
[2021-03-26] MEDS: Clopidogrel Bisulfate 75 MG TAB PO SCH (09:33)
[2021-03-26] MEDS: Digoxin 0.125 MG TAB PO SCH (09:34)
[2021-03-26] MEDS: FLUoxetine HCl 10 MG CAP PO SCH (09:35)
[2021-03-26] MEDS: Folic Acid 1 MG TAB PO SCH (09:35)
[2021-03-26] MEDS: guaiFENesin/DM ER PO SCH (09:35)
[2021-03-26] MEDS: Lidocaine 5% Patch TD SCH (09:36)
[2021-03-26] MEDS: Furosemide 40 MG TAB PO SCH (09:40)
[2021-03-26] MEDS ORDERED: Enoxaparin Sodium 40 MG/0.4 ML SYRINGE SC SCH (10:00)
[2021-03-26 10:54] LABS: Band 4 % (5-11); Hemoglobin 11.6 g/dL (14.0-18.0); Hypochromia SLIGHT = 6-15 cells (100X) (0-5/hpf); Lymphocytes 1 % (21-51); MDiff Complete? YES; Mean Corpuscular HGB CONC 31.1 g/dL (32.0-36.0); Mean Corpuscular Volume 93.2 fL (78.0-98.0); Mean Platelet Volume 8.7 fL (7.4-10.4); Monocytes 5 % (0-10); Neutrophil 89 % (42-75); Platelet Count 315 thou/uL (130-400); Platelet Morphology Comment Appears Adequate; RBC Distribution Width 13.7 % (11.5-14.5); Reactive Lymphocytes 1 % (0-10); Red Blood Cell (RBC) Count 4.02 mill/uL (4.70-6.10); White Blood Cell (WBC) Count 11.1 thou/uL (4.8-10.8)
[2021-03-26] MEDS ORDERED: Warfarin Sodium 5 MG TAB PO SCH (17:00)
[2021-03-26 17:16] VITALS: BP 105/69; TEMP 98.9
[2021-03-27] MEDS ORDERED: Dexamethasone 1 MG TAB PO SCH (08:00)
[2021-03-27] MEDS ORDERED: Enoxaparin Sodium 40 MG/0.4 ML SYRINGE SC SCH (09:00)
== END 2021-03-26 19:43 | disposition home or self-care (01) | DRG 871 ==
LOC: ERS 12:36 → ERHOLD 14:03 → IMCU/EMU 17:28 → 2SW 03-20 19:53
PROVIDERS: ADMIT Family Medicine; ATTEND Family Medicine
PROC: 8E0ZXY6 Isolation (ICD-10-PCS; principal; 2021-03-19)
DX: A41.89 Other specified sepsis (principal); U07.1 COVID-19; J12.82 Pneumonia due to coronavirus disease 2019; J96.01 Acute respiratory failure with hypoxia; I50.22 Chronic systolic (congestive) heart failure; I13.0 Hypertensive heart and chronic kidney disease with heart failure and stage 1 through stage 4 chronic kidney disease, or unspecified chronic kidney disease; E46 Unspecified protein-calorie malnutrition; J43.9 Emphysema, unspecified; I25.10 Atherosclerotic heart disease of native coronary artery without angina pectoris; E86.0 Dehydration; R79.1 Abnormal coagulation profile; N18.30 Chronic kidney disease, stage 3 unspecified; F32.A Depression, unspecified; F41.9 Anxiety disorder, unspecified; E78.5 Hyperlipidemia, unspecified; M94.0 Chondrocostal junction syndrome [Tietze]; K43.2 Incisional hernia without obstruction or gangrene; E88.09 Other disorders of plasma-protein metabolism, not elsewhere classified; Z90.49 Acquired absence of other specified parts of digestive tract; Z95.1 Presence of aortocoronary bypass graft; Z98.890 Other specified postprocedural states; Z95.2 Presence of prosthetic heart valve; Z87.891 Personal history of nicotine dependence; Z91.041 Radiographic dye allergy status; Z91.09 Other allergy status, other than to drugs and biological substances; Z79.899 Other long term (current) drug therapy; Z79.51 Long term (current) use of inhaled steroids; Z79.01 Long term (current) use of anticoagulants; Z83.6 Family history of other diseases of the respiratory system; Z95.810 Presence of automatic (implantable) cardiac defibrillator; Z95.5 Presence of coronary angioplasty implant and graft; Z68.21 Body mass index [BMI] 21.0-21.9, adult
CPT/HCPCS: 36415; 71045; 76999; 80053; 80162; 82553; 83605; 83880; 84134; 84484; 85007; 85025; 85027; 85379; 85610; 85730; 87040; 93005; 94640; 94760; 94799; 96374; J1100; J1650; J7120; J7611; J7620; J8540; U0002

== ENCOUNTER 2024-02-04 10:12 | Emergency (ER) | payer MEDICARE, BC ==
[2024-02-04 11:24] LABS: #Basophils 0.04 10x3/uL (0.0-0.2); %Basophils 0.4 % (0.0-1.0); %Eosinophils 2.1 % (0.0-10.0); %Lymphocytes 13.8 % (21.0-51.0); %Monocytes 10.2 % (0.0-10.0); %Neutrophils 73.3 % (42.0-75.0); Hematocrit 45.9 % (42.0-52.0); Hemoglobin 14.9 g/dL (14.0-18.0); Mean Corpuscular HGB CONC 32.5 g/dL (32.0-36.0); Mean Corpuscular Hemoglobin 30.7 pg (27.0-31.0); Mean Corpuscular Volume 94.6 fL (78.0-98.0); Mean Platelet Volume 10.6 fL (7.4-10.4); Platelet Count 247 10x3/uL (130-400); RBC Distribution Width 13.4 % (11.5-14.5); Red Blood Cell (RBC) Count 4.85 mill/uL (4.70-6.10)
[2024-02-04 11:32] LABS: ALT (SGPT) 12 U/L (8-55); AST (SGOT) 19 U/L (5-34); Albumin 3.7 g/dL (3.4-4.8); Alkaline Phosphatase 65 U/L (40-110); Anion Gap 13 mmol/L (10-20); BUN (Urea Nitrogen) 19 mg/dL (8.4-25.7); Bilirubin, Total 0.8 mg/dL (0.2-1.2); Calc. Creatinine Clearance 0 mL/min (70-130); Calcium 8.9 mg/dL (7.8-10.44); Carbon Dioxide 26 mmol/L (23-31); Chloride 102 mmol/L (98-107); Estimated GFR 51; Globulin 3.4 g/dL (2.4-3.5); Glucose 99 mg/dL (80-115); Potassium 3.4 mmol/L (3.5-5.1); Protein, Total 7.1 g/dL (5.8-8.1); Sodium 138 mmol/L (136-145)
[2024-02-04] MEDS ORDERED: Acetaminophen 500 MG TAB ONE (11:53)
[2024-02-04] MEDS ORDERED: Morphine 4 MG/ML VIAL ONE (13:32)
[2024-02-04] MEDS ORDERED: Colchicine 0.6 MG TAB PO SCH (14:45)
== END 2024-02-04 15:03 | disposition home or self-care (01) ==
LOC: ERS 10:12
DX: M10.9 Gout, unspecified (principal); I10 Essential (primary) hypertension; I25.10 Atherosclerotic heart disease of native coronary artery without angina pectoris; Z79.01 Long term (current) use of anticoagulants; Z87.891 Personal history of nicotine dependence; Z79.899 Other long term (current) drug therapy
CPT/HCPCS: 36415; 80053; 83880; 84550; 85025; 86141; 96372; 99283; J2272

== ENCOUNTER 2024-10-05 12:21 | Inpatient (IN) | payer MEDICARE ==
[2024-10-05 12:53] LABS: Actual Bicarbonate (HCO3v) 29.6 mEq/L (22-28); Analyzer IN Cardio ER; Base Excess 3.0 mEq/L (-2.0 to +3.0); Calcium, Ionized (venous) 1.15 mmol/L (1.16-1.32); Chloride (VBG) 100 mmol/L (98-106); Hematocrit-VBG 53 % (42.0-52.0); Hemoglobin (Hb) 18.1 g/dL (13.1-17.2); Potassium (VBG) 5.05 mmol/L (3.70-5.30); Sodium 145 mmol/L (133-146)
[2024-10-05 12:56] LABS: #Basophils 0.09 10x3/uL (0.0-0.2); #Eosinophils 0.07 10x3/uL (0.0-0.7); #Monocytes 0.84 10x3/uL (0.11-0.59); #Neutrophils 9.37 10x3/uL (1.40-6.50); %Basophils 0.8 % (0.0-1.0); %Eosinophils 0.6 % (0.0-10.0); %Lymphocytes 12.0 % (21.0-51.0); %Monocytes 7.1 % (0.0-10.0); %Neutrophils 78.6 % (42.0-75.0); Hematocrit 51.4 % (42.0-52.0); Hemoglobin 16.5 g/dL (14.0-18.0); Mean Corpuscular Hemoglobin 29.8 pg (27.0-31.0); Mean Corpuscular Volume 92.8 fL (78.0-98.0); Platelet Count 426 10x3/uL (130-400); Red Blood Cell (RBC) Count 5.54 mill/uL (4.70-6.10); White Blood Cell (WBC) Count 11.91 10x3/uL (4.8-10.8)
[2024-10-05] MEDS ORDERED: Albuterol 2.5 MG (3 mL) NEB ONE (12:58)
[2024-10-05] MEDS ORDERED: Magnesium 2 GM/50 ML BAG (IN WATER) ONE (13:07)
[2024-10-05] MEDS ORDERED: Azithromycin 250 MG TAB ONE (13:07)
[2024-10-05] MEDS ORDERED: cefTRIAXone (ROCEPHIN) 1 GM VIAL ONE (13:08)
[2024-10-05 13:15] LABS: ALT (SGPT) 52 U/L (Less than 45); AST (SGOT) 82 U/L (11-34); Albumin 3.1 g/dL (3.1-4.5); Alkaline Phosphatase 90 U/L (40-110); Anion Gap 15 mmol/L (10-20); BUN (Urea Nitrogen) 18 mg/dL (8.4-25.7); Bilirubin, Total 0.9 mg/dL (0.3-1.2); Calc. Creatinine Clearance 0 mL/min (70-130); Calcium 9.6 mg/dL (7.8-10.44); Carbon Dioxide 29 mmol/L (23-31); Chloride 102 mmol/L (98-107); Globulin 4.2 g/dL (2.4-3.5); Glucose 147 mg/dL (80-115); Potassium 3.5 mmol/L (3.5-5.1); Sodium 142 mmol/L (136-145)
[2024-10-05 13:20] LABS: Troponin I 0.023 ng/mL (< 0.028)
[2024-10-05 14:24] LABS: INR-International Normal Ratio 3.3
[2024-10-05 14:25] LABS: PTT 53.2 sec (22.9-36.1)
[2024-10-05 14:31] LABS: Prothrombin Time 34.1 sec (12.0-14.7)
[2024-10-05 14:41] LABS: Digoxin 0.62 ng/mL (0.8-2.0)
[2024-10-05] MEDS ORDERED: Furosemide 20 MG (2 mL) VIAL ONE (16:06)
[2024-10-05 16:56] LABS: Troponin I 0.024 ng/mL (< 0.028)
[2024-10-05] MEDS ORDERED: Acetaminophen 325 MG TAB PO PRN (17:30)
[2024-10-05] MEDS ORDERED: Ondansetron PF 4 MG/2 ML Vial IVP PRN (17:30)
[2024-10-05] MEDS ORDERED: Melatonin 3 MG TAB PO PRN (18:02)
[2024-10-05] MEDS ORDERED: Guaifenesin DM 100-10/5 ML UDCUP PO PRN (18:02)
[2024-10-05 18:08] VITALS: BMI 22.8
[2024-10-05 18:42] LABS: Magnesium 2.2 mg/dL (1.6-2.6)
[2024-10-05 19:34] LABS: Troponin I 0.025 ng/mL (< 0.028)
[2024-10-05] MEDS: Mometasone 200 MCG/Formoterol 5 MCG 120 PUFF INHALER INH SCH (20:03)
[2024-10-06 04:53] LABS: #Basophils Less than 0.03 10x3/uL (0.0-0.2); #Eosinophils Less than 0.03 10x3/uL (0.0-0.7); #Monocytes 0.16 10x3/uL (0.11-0.59); #Neutrophils 6.39 10x3/uL (1.40-6.50); %Basophils 0.3 % (0.0-1.0); %Eosinophils 0.0 % (0.0-10.0); %Lymphocytes 6.6 % (21.0-51.0); %Monocytes 2.2 % (0.0-10.0); %Neutrophils 89.5 % (42.0-75.0); Hematocrit 45.8 % (42.0-52.0); Hemoglobin 15.0 g/dL (14.0-18.0); Mean Corpuscular Hemoglobin 29.8 pg (27.0-31.0); Mean Corpuscular Volume 90.9 fL (78.0-98.0); Platelet Count 336 10x3/uL (130-400); Red Blood Cell (RBC) Count 5.04 mill/uL (4.70-6.10); White Blood Cell (WBC) Count 7.14 10x3/uL (4.8-10.8)
[2024-10-06 05:11] LABS: ALT (SGPT) 49 U/L (Less than 45); AST (SGOT) 67 U/L (11-34); Albumin 2.9 g/dL (3.1-4.5); Alkaline Phosphatase 78 U/L (40-110); Anion Gap 15 mmol/L (10-20); BUN (Urea Nitrogen) 24 mg/dL (8.4-25.7); Bilirubin, Total 0.5 mg/dL (0.3-1.2); Calc. Creatinine Clearance 63 mL/min (70-130); Calcium 9.2 mg/dL (7.8-10.44); Carbon Dioxide 23 mmol/L (23-31); Chloride 104 mmol/L (98-107); Globulin 3.7 g/dL (2.4-3.5); Glucose 144 mg/dL (80-115); Potassium 3.6 mmol/L (3.5-5.1); Sodium 138 mmol/L (136-145)
[2024-10-06] MEDS: predniSONE 20 MG TAB PO SCH (09:01)
[2024-10-06] MEDS: Azithromycin 250 MG TAB PO SCH (09:02)
[2024-10-06] MEDS ORDERED: Nitroglycerin 0.4 MG TAB (25 Tab Bottle) SL PRN (11:37)
[2024-10-06 14:03] LABS: INR-International Normal Ratio 3.6; Prothrombin Time 36.0 sec (12.0-14.7)
[2024-10-06] MEDS: Artificial Tear Ophth Sol 15 ML BOT R EYE PRN (14:24)
[2024-10-06] MEDS: Sacubitril 24MG/Valsartan 26 MG TAB PO SCH (21:39)
[2024-10-07 05:14] LABS: INR-International Normal Ratio 3.4; Prothrombin Time 34.5 sec (12.0-14.7)
[2024-10-07 07:08] LABS: #Basophils Less than 0.03 10x3/uL (0.0-0.2); #Eosinophils Less than 0.03 10x3/uL (0.0-0.7); #Monocytes 0.83 10x3/uL (0.11-0.59); #Neutrophils 14.97 10x3/uL (1.40-6.50); %Basophils 0.1 % (0.0-1.0); %Eosinophils 0.0 % (0.0-10.0); %Lymphocytes 4.4 % (21.0-51.0); %Monocytes 4.9 % (0.0-10.0); %Neutrophils 89.1 % (42.0-75.0); Hematocrit 44.1 % (42.0-52.0); Hemoglobin 14.2 g/dL (14.0-18.0); Mean Corpuscular Hemoglobin 30.0 pg (27.0-31.0); Mean Corpuscular Volume 93.2 fL (78.0-98.0); Platelet Count 373 10x3/uL (130-400); Red Blood Cell (RBC) Count 4.73 mill/uL (4.70-6.10); White Blood Cell (WBC) Count 16.81 10x3/uL (4.8-10.8)
[2024-10-07 07:21] LABS: ALT (SGPT) 54 U/L (Less than 45); AST (SGOT) 70 U/L (11-34); Albumin 2.8 g/dL (3.1-4.5); Alkaline Phosphatase 95 U/L (40-110); Anion Gap 14 mmol/L (10-20); BUN (Urea Nitrogen) 38 mg/dL (8.4-25.7); Bilirubin, Total 0.4 mg/dL (0.3-1.2); Calc. Creatinine Clearance 60 mL/min (70-130); Calcium 9.3 mg/dL (7.8-10.44); Carbon Dioxide 24 mmol/L (23-31); Chloride 107 mmol/L (98-107); Globulin 3.4 g/dL (2.4-3.5); Glucose 135 mg/dL (80-115); Potassium 3.6 mmol/L (3.5-5.1); Sodium 141 mmol/L (136-145)
[2024-10-07] MEDS: Amiodarone 200 MG TAB PO SCH (09:36)
[2024-10-07] MEDS: Digoxin 0.125 MG TAB PO SCH (09:38)
[2024-10-07 11:54] LABS: Hep A IgM AB NONREACTIVE (NonReactive); Hep A IgM S/CO 0.15 S/CO (0-0.79); Hep B Core IgM Index 0.14 S/CO (0-0.79); Hep B Surf Ag NONREACTIVE S/CO (NonReactive); Hep C IgG Ab NONREACTIVE S/CO (NonReactive); Hep C Index 0.25 S/CO (0-0.79)
[2024-10-07 15:17] LABS: Hep B Core IgM Index 0.13 S/CO (0-0.79)
[2024-10-07 15:24] LABS: Hep A IgM AB NONREACTIVE (NonReactive); Hep A IgM S/CO 0.17 S/CO (0-0.79)
[2024-10-07 15:25] LABS: Hep C IgG Ab NONREACTIVE S/CO (NonReactive); Hep C Index 0.22 S/CO (0-0.79)
[2024-10-08 04:55] LABS: #Basophils 0.03 10x3/uL (0.0-0.2); #Eosinophils Less than 0.03 10x3/uL (0.0-0.7); #Monocytes 0.73 10x3/uL (0.11-0.59); #Neutrophils 9.95 10x3/uL (1.40-6.50); %Basophils 0.3 % (0.0-1.0); %Eosinophils 0.0 % (0.0-10.0); %Lymphocytes 5.9 % (21.0-51.0); %Monocytes 6.3 % (0.0-10.0); %Neutrophils 85.7 % (42.0-75.0); Hematocrit 43.2 % (42.0-52.0); Hemoglobin 13.8 g/dL (14.0-18.0); Mean Corpuscular Hemoglobin 30.0 pg (27.0-31.0); Mean Corpuscular Volume 93.9 fL (78.0-98.0); Platelet Count 333 10x3/uL (130-400); Red Blood Cell (RBC) Count 4.60 mill/uL (4.70-6.10); White Blood Cell (WBC) Count 11.60 10x3/uL (4.8-10.8)
[2024-10-08 05:10] LABS: ALT (SGPT) 58 U/L (Less than 45); AST (SGOT) 61 U/L (11-34); Albumin 2.7 g/dL (3.1-4.5); Alkaline Phosphatase 79 U/L (40-110); Anion Gap 9 mmol/L (10-20); BUN (Urea Nitrogen) 37 mg/dL (8.4-25.7); Bilirubin, Total 0.5 mg/dL (0.3-1.2); Calc. Creatinine Clearance 62 mL/min (70-130); Calcium 9.0 mg/dL (7.8-10.44); Carbon Dioxide 30 mmol/L (23-31); Chloride 105 mmol/L (98-107); Globulin 3.2 g/dL (2.4-3.5); Glucose 114 mg/dL (80-115); Potassium 3.9 mmol/L (3.5-5.1); Sodium 140 mmol/L (136-145)
[2024-10-08 05:18] LABS: INR-International Normal Ratio 3.8; Prothrombin Time 37.9 sec (12.0-14.7)
[2024-10-08] MEDS: Warfarin Sodium 1.25 MG HALF.TAB PO SCH (21:11)
[2024-10-09 04:51] LABS: #Basophils Less than 0.03 10x3/uL (0.0-0.2); #Eosinophils Less than 0.03 10x3/uL (0.0-0.7); #Monocytes 0.40 10x3/uL (0.11-0.59); #Neutrophils 7.92 10x3/uL (1.40-6.50); %Basophils 0.2 % (0.0-1.0); %Eosinophils 0.0 % (0.0-10.0); %Lymphocytes 5.7 % (21.0-51.0); %Monocytes 4.4 % (0.0-10.0); %Neutrophils 87.8 % (42.0-75.0); Hematocrit 42.3 % (42.0-52.0); Hemoglobin 13.4 g/dL (14.0-18.0); Mean Corpuscular Hemoglobin 29.5 pg (27.0-31.0); Mean Corpuscular Volume 93.0 fL (78.0-98.0); Platelet Count 307 10x3/uL (130-400); Red Blood Cell (RBC) Count 4.55 mill/uL (4.70-6.10); White Blood Cell (WBC) Count 9.02 10x3/uL (4.8-10.8)
[2024-10-09 05:01] LABS: INR-International Normal Ratio 5.0; Prothrombin Time 46.5 sec (12.0-14.7)
[2024-10-09 05:15] LABS: ALT (SGPT) 51 U/L (Less than 45); AST (SGOT) 49 U/L (11-34); Albumin 2.5 g/dL (3.1-4.5); Alkaline Phosphatase 72 U/L (40-110); Anion Gap 9 mmol/L (10-20); BUN (Urea Nitrogen) 36 mg/dL (8.4-25.7); Bilirubin, Total 0.5 mg/dL (0.3-1.2); Calc. Creatinine Clearance 69 mL/min (70-130); Calcium 8.3 mg/dL (7.8-10.44); Carbon Dioxide 27 mmol/L (23-31); Chloride 107 mmol/L (98-107); Globulin 2.9 g/dL (2.4-3.5); Glucose 120 mg/dL (80-115); Potassium 4.2 mmol/L (3.5-5.1); Sodium 139 mmol/L (136-145)
[2024-10-09 16:28] VITALS: BP 128/80; TEMP 97.4
== END 2024-10-09 17:35 | disposition home or self-care (01) | DRG 189 ==
LOC: ERS 12:21 → 2NO 15:43
PROVIDERS: ADMIT Student in an Organized Health Care Education/Training Program; ATTEND Student in an Organized Health Care Education/Training Program
PROC: 3E03329 Introduction of Other Anti-infective into Peripheral Vein, Percutaneous Approach (ICD-10-PCS; principal; 2024-10-05)
PROC: 4B02XTZ Measurement of Cardiac Defibrillator, External Approach (ICD-10-PCS; 2024-10-05)
DX: J96.01 Acute respiratory failure with hypoxia (principal); I50.22 Chronic systolic (congestive) heart failure; J44.1 Chronic obstructive pulmonary disease with (acute) exacerbation; I47.10 Supraventricular tachycardia, unspecified; I48.0 Paroxysmal atrial fibrillation; B30.9 Viral conjunctivitis, unspecified; I25.10 Atherosclerotic heart disease of native coronary artery without angina pectoris; M10.9 Gout, unspecified; I11.0 Hypertensive heart disease with heart failure; Z90.49 Acquired absence of other specified parts of digestive tract; Z95.1 Presence of aortocoronary bypass graft; Z98.890 Other specified postprocedural states; Z79.899 Other long term (current) drug therapy; Z79.01 Long term (current) use of anticoagulants; Z91.041 Radiographic dye allergy status; Z91.040 Latex allergy status; Z91.048 Other nonmedicinal substance allergy status; Z95.810 Presence of automatic (implantable) cardiac defibrillator; Z95.2 Presence of prosthetic heart valve; Z86.16 Personal history of COVID-19; Z87.01 Personal history of pneumonia (recurrent); R74.01 Elevation of levels of liver transaminase levels; R79.89 Other specified abnormal findings of blood chemistry; I49.9 Cardiac arrhythmia, unspecified; Z87.891 Personal history of nicotine dependence; I44.7 Left bundle-branch block, unspecified; I08.2 Rheumatic disorders of both aortic and tricuspid valves
CPT/HCPCS: 36415; 71045; 76705; 80053; 80074; 80162; 82805; 82977; 83605; 83735; 83880; 84100; 84484; 85025; 85610; 85730; 86705; 86709; 86803; 87040; 93005; 93306; 94640; 94664; 94760; 96365; 96366; 96367; 96375; J0696; J1940; J2919; J3475; J7512; J7611; J7620